=== PATIENT | female | born 1975 | race Caucasian/White ===

== ENCOUNTER 2019-08-01 19:45 | Observation (INO) ==
[2019-08-01 20:19] LABS: Hematocrit 31.5 % (37.0-47.0); Hemoglobin 10.9 gm/dL (12.5-16.0); Mean Cell Volume 112.9 fl (78-100); Mean Corpuscular Hemoglobin 39.1 pg (27-31); Mean Corpuscular Hgb Conc 34.6 g/dl (32-36); Mean Platelet Volume 11.8 fl (8-12.5); Neutrophil # 4.7 K/mm3 (1.3-6.0); Neutrophil % 72.5 % (42-75.0); Platelet Count 47 K/mm3 (150-450); Red Blood Count 2.79 M/mm3 (4.2-5.4); Red Cell Distribution Width 13.5 % (11.5-14.0); White Blood Count 6.5 K/mm3 (4.0-10.5)
[2019-08-01 20:26] LABS: Albumin * 2.6 gm/dl (3.4-5.0); BUN/Creatinine Ratio 15.2 (9.0-21.6); Bilirubin, Total 4.4 mg/dL (0.0-1.1); Ca. Corrected For Albumin 8.6 mg/dL (8.4-10.2); Calcium * 7.8 mg/dL (7.9-10.9); Carbon Dioxide 24.1 mmol/L (24-32.6); Potassium 3.1 mmol/L (3.4-4.6); Total Protein 7.3 gm/dL (6.2-8.2)
[2019-08-01] MEDS ORDERED: NORMAL SALINE 1,000 ML IV PRN ×2 (20:56→21:37)
[2019-08-01 20:59] LABS: Prothrombin Time (Patient) 14.6 Seconds (9.1-10.7)
[2019-08-01 21:09] LABS: INR 1.5 INR (0.92-1.08); Partial Thrombolplastin Time 29.7 Seconds (24-32)
[2019-08-01 21:19] LABS: Urine Bilirubin 3 mg/dl (NEGATIVE); Urine Blood 50 /ul (NEGATIVE); Urine Ketone 5 mg/dL (NEGATIVE); Urine Nitrite Negative (NEGATIVE); Urine Protein 30 mg/dL (NEGATIVE); Urine Urobilinogen >=8.0 EU/dl (NORMAL)
[2019-08-01 21:20] LABS: Urine Appearance Cloudy (CLEAR); Urine Color Dark Yellow
[2019-08-01 21:26] LABS: Urine Bacteria 4+; Urine WBC >50 /hpf (0-5)
--- NOTE | 2019-08-01 21:30 | ERNOTE ---
Abdominal HPI - Narrative Date of Service: 08/01/19 - General Chief Complaint: Abdominal Pain Time Seen by Provider: 08/01/19 20:46 Source: patient Exam Limitations: no limitations - Immun/Allergies/Home Medications Immunizatons: IMMUNIZATION HX Immunizations Up to Date Yes History of Influenza Vaccine No Hx Pneumococcal Vaccination No Allergies/Adverse Reactions: Allergies No Known Allergies Allergy (Verified 07/31/19 13:20) Home Medications: HOME MEDICATIONS levothyroxine 100 mcg capsule 100 mcg PO DAILY #30 cap 12/06/18 [Last Taken Unknown] albuterol sulfate HFA 90 mcg/actuation aerosol inhaler 2 inh IH Q6H PRN #8.5 g 01/28/19 [Last Taken Unknown] gabapentin 300 mg capsule 300 mg PO Q8H #90 cap 01/28/19 [Last Taken Unknown] furosemide 20 mg tablet 20 mg PO DAILY #30 tab 07/31/19 [Last Taken Unknown] hydroxyzine HCl 25 mg tablet 25 mg PO BID PRN #60 tab 07/31/19 [Last Taken Unknown] - Pain Score Pain Score #1 Pain Score: 5 Pain Radiation: no radiation - History of Present Illness Narrative: The patient is a 44 year old female who presents for increased lethargy which has been present for 3 days. There are associated symptoms of abdominal distention and difficulty with urination. The patient reports generalized pain, 5/10. There are no alleviating factors. There are no aggravating factors. Previous treatments have included: none. The past medical history includes: HTN. The social history is positive for heavy alcoh ol use. The patient has had no ill contacts. Patient reports increased lethargy and difficulty with urination. Patient states she has urge to void but has been unable. Patient also reports increased abdominal girth which has been present for the past 3 days. Patient report generalized body aches. Patient was recently seen in ER with head CT due to previous fall and alcohol intoxication. Patient during exam states she hasn't had a drink for a while, when questioned how long like days or hours friend at bedside responses only hours. Patient states she typically drinks "wild turkey" and other hard liquors. Patient denies repeat fall since last ER visit. Patient states she has just been continuing to sleep. Review of Systems - Review of Systems Constitutional: Present: fatigue. Absent: fever EYE: Present: no symptoms reported ENT: Present: no symptoms reported. Absent: ear pain, nasal drainage, sore throat Respiratory: Present: shortness of breath, cough Cardiology: Present: no symptoms reported. Absent: chest pain Gastrointestinal/Abdominal: Present: nausea, abdominal pain. Absent: vomiting, diarrhea Genitourinary: Present: decreased urinary output Musculoskeletal: Present: other - generalized body aches Skin: Present: change in color All Other Systems: All systems neg except as marked Medical History (Updated 07/29/19 @ 21:41 by Vidal Joseph DO) Hypertension Surgical History: Surgical History (Updated 11/03/18 @ 12:53 by Vicky Avila, MEHREEN) History of History of appendectomy History of cholecystectomy History of shoulder surgery Family History: Family History (Updated 08/01/19 @ 19:52 by Janel Good RN) Other No pertinent family history Social History: (Last Reviewed 08/01/19 @ 21:26 by GUERRERO Lowery) Social History: adopted: No Marital status: household members: friend(s) number of children: 2 current occupational status: unemployed Highest education level completed: some college, no degree Service: No Tobacco: Smoking Status: Current every day smoker Alcohol: alcohol intake: current Substance Use: substance use type: does not use Dietary Habits: caffeine: Yes Physical Exam - Physical Exam General Appearance: Present: wd/wn, alert, mild distress Head Exam: Present: normal inspection, no evidence of injury Eye Exam: PERRL: bilateral, EOMI: bilateral, Scleral icterus: bilateral Neck: Present: normal inspection Respiratory: Present: no respiratory distress, decreased breath sounds Cardiovascular/Chest: Present: regular rate, rhythm, no murmur Gastrointestinal/Abdominal: Present: tenderness - suprapubic, periumbilical, abnormal bowel sounds - hypoactive, distended, hepatomegaly Extremity Exam: Present: extremity edema - 2+ pitting bilateral Neurological Exam: Present: alert, oriented, normal mood/affect, no motor/se nsory deficits Skin Exam: Present: warm/dry, jaundice Progress - Date and Time Seen: Date and Time: 08/01/19 21:43 Review of lab testing from previous ER visit which showed interval worsening of liver function with findings of elevated AST, ammonia, and bili along with INR 1.5 and thrombocytopenia. 08/01/19 21:48 Message left for . 08/01/19 22:02 Case discussed with and will admit with IV hydration for lactic acidosis as well as coverage with Rocephin for UTI. - Results and Orders Patient's Lab Results:: I have reviewed the patient's lab results. - Vital Signs Patient's Vital Signs:: I have reviewed the patient's vital signs. Vital Signs: Vital Signs 08/01/19 19:48 08/01/19 21:16 Temperature 36.8 C Pulse Rate 71 65 Respiratory Rate 17 16 Blood Pressure 104/66 89/49 L O2 Sat by Pulse Oximetry 96 96 - EKG EKG #1 EKG: NSR, nonspecific ST T wave changes EKG read: Reviewed by me - Progress/Reassessment Chief Complaint: Abdominal Pain Departure Clinical Impression: Thrombocytopenia, Lactic acidosis, Increased ammonia level, Elevated liver function tests Urinary tract infection Qualifiers: Urinary tract infection type: site unspecified Hematuria presence: without hematuria Qualified Code(s): N39.0 - Urinary tract infection, site not specified - Departure Disposition: Still a patient Condition: Fair Referrals: Reggie Davis DO [Primary Care Provider] -
[2019-08-01] MEDS ORDERED: cefTRIAXone SODIUM 1,000 MG/100 ML BAG IV ONE (21:58)
[2019-08-01] MEDS: NICOTINE 21 MG PATC TD SCH (23:18)
[2019-08-02] MEDS: IBUPROFEN 400 MG TABLET PO PRN ×2 (01:52→08:02)
[2019-08-02 09:54] LABS: Hematocrit 27.5 % (37.0-47.0); Hemoglobin 9.7 gm/dL (12.5-16.0); Mean Cell Volume 111.8 fl (78-100); Mean Corpuscular Hemoglobin 39.4 pg (27-31); Mean Corpuscular Hgb Conc 35.3 g/dl (32-36); Mean Platelet Volume 11.1 fl (8-12.5); Neutrophil # 3.9 K/mm3 (1.3-6.0); Neutrophil % 75.2 % (42-75.0); Platelet Count 41 K/mm3 (150-450); Red Blood Count 2.46 M/mm3 (4.2-5.4); Red Cell Distribution Width 13.7 % (11.5-14.0); White Blood Count 5.1 K/mm3 (4.0-10.5)
[2019-08-02 10:00] LABS: Albumin * 2.4 gm/dl (3.4-5.0); Anion Gap 13.3 mmol/L (6.8-13.8); BUN/Creatinine Ratio 10.5 (9.0-21.6); Bilirubin, Total 4.7 mg/dL (0.0-1.1); Ca. Corrected For Albumin 8.5 mg/dL (8.4-10.2); Calcium * 7.5 mg/dL (7.9-10.9); Carbon Dioxide 24.8 mmol/L (24-32.6); Potassium 3.1 mmol/L (3.4-4.6); Total Protein 6.7 gm/dL (6.2-8.2)
[2019-08-02] MEDS ORDERED: FLU VACC QS2019-20(6MOS UP)/PF 60 MCG/0.5 ML SYRINGE IM ONE (10:00)
[2019-08-02] MEDS ORDERED: POTASSIUM BICARBONATE/CIT AC 25 MEQ TABLET.EFF PO ONE (11:08)
[2019-08-02] MEDS ORDERED: AMITRIPTYLINE HCL 25 MG TABLET PO PRN (11:09)
[2019-08-02] MEDS ORDERED: ALBUTEROL SULFATE 2.5 MG/0.5 ML VIAL.NEB IH PRN (11:30)
[2019-08-02] MEDS: GABAPENTIN 300 MG CAPSULE PO SCH ×2 (12:36→20:44)
[2019-08-02] MEDS: DICLOFENAC SODIUM 50 MG TABLET.DR PO SCH ×2 (12:36→17:02)
--- NOTE | 2019-08-02 13:46 | HPDIS ---
Chief Complaint - Chief Complaint Date of Service: 08/02/19 Time of Service: 09:45 Chief Complaint: Abdominal pain and difficulty walking. History of Present Illness: 44-year-old female with a past medical history of alcohol abuse, hypertension, anxiety, hypothyroidism, GERD, tobacco abuse presents with complaints of difficulty walking and abdominal pain. She stated her symptoms began 3 days prior to presentation. In she also complained of difficulty urinating. She had been seen in the emergency department for on July 26, 2019 status post fall with alcohol intoxication and was found to have a scalp hematoma on CT scan. She states her last drink was yesterday. In the emergency department she was found to have anemia, slightly worsening thrombocytopenia, mildly elevated LFTs, hypokalemia and lactic acidosis. She was treated with IV fluids with appropriate response in the lactic acid levels. She was also noted to have a positive UA and was started on ceftriaxone. Medical History (Updated 08/01/19 @ 23:24 by Lisa Subramanian RN) Anxiety Hypertension Surgical History: Surgical History (Updated 11/03/18 @ 12:53 by Vicky Avila RN) History of History of appendectomy History of cholecystectomy History of shoulder surgery Family History: Family History (Updated 08/01/19 @ 19:52 by Janel Good RN) Other No pertinent family history Social History: (Last Reviewed 08/01/19 @ 21:26 by GUERRERO Lowery) Social History: adopted: No Marital status: household members: friend(s) number of children: 2 current occupational status: unemployed Highest education level completed: some college, no degree Service: No Tobacco: Smoking Status: Current every day smoker Alcohol: alcohol intake: current Substance Use: substance use type: does not use Dietary Habits: caffeine: Yes Review Of Systems (GEN) - Review of Systems Generalized/Overall Review: Absent: Fever Respiratory: Absent: Shortness of Breath Cardiac: Absent: Chest Pain Abdominal: Present: Abdominal Pain Genitourinary: Absent: Frequency, Dysuria Musculoskeletal: Present: Joint Pain - Right shoulder Misc: All systems neg except as marked Immunizations: IMMUNIZATION HX Immunizations Up to Date Yes History of Influenza Vaccine No Hx Pneumococcal Vaccination No Allergies/Adverse Reactions: Allergies Allergy/AdvReac Type Severity Reaction Status Date / Time No Known Allergies Allergy Verified 08/01/19 23:26 Home Medications: HOME MEDICATIONS levothyroxine 100 mcg capsule 100 mcg PO DAILY #30 cap 12/06/18 [Last Taken Unknown] albuterol sulfate HFA 90 mcg/actuation aerosol inhaler 2 inh IH Q6H PRN #8.5 g 01/28/19 [Last Taken Unknown] gabapentin 300 mg capsule 300 mg PO Q8H #90 cap 01/28/19 [Last Taken Unknown] furosemide 20 mg tablet 20 mg PO DAILY #30 tab 07/31/19 [Last Taken Unknown] hydroxyzine HCl 25 mg tablet 25 mg PO BID PRN #60 tab 07/31/19 [Last Taken Unknown] Amitriptyline HCl [Elavil] 50 mg PO HS PRN 08/01/19 [Last Taken Unknown] Beclomethasone Dipropionate [Qvar Redihaler] 10.6 gm INHALATION PRN PRN 08/01/19 [Last Taken Unknown] Diclofenac Sodium [Voltaren] 50 mg PO TID 08/01/19 [Last Taken Unknown] LORazepam [Ativan] 1 mg PO TID PRN 08/01/19 [Last Taken Unknown] Omeprazole 40 mg PO DAILY 08/01/19 [Last Taken Unknown] chlordiazePOXIDE HCL [Librium] 25 - 50 mg PO QID 08/01/19 [Last Taken Unknown] Cefdinir 300 mg PO BID #12 cap 08/02/19 [Last Taken Unknown] Exam - Exam Vital Signs: Vital Signs - Last Taken Temp 37.0 C 08/02/19 10:00 Pulse 81 08/02/19 10:00 Resp 16 08/02/19 10:00 BP 133/54 08/02/19 10:00 Pulse Ox 93 08/02/19 10:00 Constitutional: Present: Alert, Cooperative, Well developed, Well nourished, Middle aged ENT Exam: Present: hearing grossly normal Eye Exam: bilateral eye: normal inspection, PERRL, EOMI, scleral icterus Neck: Present: non-tender, supple, trachea midline. Absent: lymphadenopathy (R), lymphadenopathy (L) Back Exam: Present: normal inspection, no CVA tenderness Respiratory: Present: no respiratory distress, decreased breath sounds. Absent: crackles, rhonchi, wheezing Cardiovascular/Chest: Present: normal peripheral pulses, regular rate, rhythm, no murmur Peripheral Pulses: dorsalis-pedis (R): 1+, dorsalis-pedis (L): 1+ Abdomen: Present: Normal bowel sounds, soft, nontender Extremity: Present: normal inspection, no pedal edema Skin Exam: Present: normal color, warm/dry Neurologic: Present: alert, normal mood/affect Appearance: Present: appropriate appearance Eye contact: Present: cooperative, good eye contact Thoughts: Present: normal mood /affect Diagnostic Studies: Abnormal Lab Results 08/01/19 08/01/19 08/01/19 Range/Units 20:11 20:11 20:47 RBC 2.79 L (4.2-5.4) M/mm3 Hgb 10.9 L (12.5-16.0) gm/dL Hct 31.5 L (37.0-47.0) % MCV 112.9 H (78-100) fl MCH 39.1 H (27-31) pg Plt Count 47 L (150-450) K/mm3 Immature Gran % (Auto) 0.50 H (0.001-0.429) % Neutrophils % (42-75.0) % Lymphocytes % (20-51) % Lymphocytes # 1.35 L (1.5-3.5) k/mm3 PT 14.6 H (9.1-10.7) Seconds INR (Anticoag Therapy) 1.50 H (0.92-1.08) INR Potassium 3.1 L (3.4-4.6) mmol/L Chloride 95 L (97-106) mmol/L Anion Gap 17.0 H (6.8-13.8) mmol/L Random Glucose 136 H D (70-110) mg/dL Lactic Acid, Venous (0.4-2.0) mmol/L Calcium 7.8 L (7.9-10.9) mg/dL Total Bilirubin 4.4 H (0.0-1.1) mg/dL AST 261 H (0-48) U/L ALT 80 H (19-67) U/L Ammonia (11-35) mcmol/L Albumin 2.6 L (3.4-5.0) gm/dl Urine Protein (NEGATIVE) mg/dL Urine Blood (NEGATIVE) /ul Urine Bilirubin (NEGATIVE) mg/dl Urine Ictotest (NEGATIVE) Prot Sulfosalicylic Acd (0) mg/dL Urine Urobilinogen (NORMAL) EU/dl Ur Leukocyte Esterase (NEGATIVE) /ul Urine RBC (0-5) /hpf Urine WBC (0-5) /hpf Ur Epithelial Cells (0-5) /hpf Urine Bacteria (NONE) Ethyl Alcohol (0.0-10.0) mg/dL 08/01/19 08/01/19 08/01/19 Range/Units 20:47 20:56 20:57 RBC (4.2-5.4) M/mm3 Hgb (12.5-16.0) gm/dL Hct (37.0-47.0) % MCV (78-100) fl MCH (27-31) pg Plt Count (150-450) K/mm3 Immature Gran % (Auto) (0.001-0.429) % Neutrophils % (42-75.0) % Lymphocytes % (20-51) % Lymphocytes # (1.5-3.5) k/mm3 PT (9.1-10.7) Seconds INR (Anticoag Therapy) (0.92-1.08) INR Potassium (3.4-4.6) mmol/L Chloride (97-106) mmol/L Anion Gap (6.8-13.8) mmol/L Random Glucose (70-110) mg/dL Lactic Acid, Venous 4.7 H* (0.4-2.0) mmol/L Calcium (7.9-10.9) mg/dL Total Bilirubin (0.0-1.1) mg/dL AST (0-48) U/L ALT (19-67) U/L Ammonia 62.0 H (11-35) mcmol/L Albumin (3.4-5.0) gm/dl Urine Protein (NEGATIVE) mg/dL Urine Blood (NEGATIVE) /ul Urine Bilirubin (NEGATIVE) mg/dl Urine Ictotest (NEGATIVE) Prot Sulfosalicylic Acd (0) mg/dL Urine Urobilinogen (NORMAL) EU/dl Ur Leukocyte Esterase (NEGATIVE) /ul Urine RBC (0-5) /hpf Urine WBC (0-5) /hpf Ur Epithelial Cells (0-5) /hpf Urine Bacteria (NONE) Ethyl Alcohol 322.0 H (0.0-10.0) mg/dL 08/01/19 08/01/19 08/02/19 Range/Units 21:16 23:56 09:40 RBC 2.46 L (4.2-5.4) M/mm3 Hgb 9.7 L (12.5-16.0) gm/dL Hct 27.5 L (37.0-47.0) % MCV 111.8 H (78-100) fl MCH 39.4 H (27-31) pg Plt Count 41 L (150-450) K/mm3 Immature Gran % (Auto) (0.001-0.429) % Neutrophils % 75.2 H (42-75.0) % Lymphocytes % 18.3 L (20-51) % Lymphocytes # 0.94 L (1.5-3.5) k/mm3 PT (9.1-10.7) Seconds INR (Anticoag Therapy) (0.92-1.08) INR Potassium (3.4-4.6) mmol/L Chloride (97-106) mmol/L Anion Gap (6.8-13.8) mmol/L Random Glucose (70-110) mg/dL Lactic Acid, Venous 3.3 H* (0.4-2.0) mmol/L Calcium (7.9-10.9) mg/dL Total Bilirubin (0.0-1.1) mg/dL AST (0-48) U/L ALT (19-67) U/L Ammonia (11-35) mcmol/L Albumin (3.4-5.0) gm/dl Urine Protein 30 H (NEGATIVE) mg/dL Urine Blood 50 H (NEGATIVE) /ul Urine Bilirubin 3 H (NEGATIVE) mg/dl Urine Ictotest Positive H (NEGATIVE) Prot Sulfosalicylic Acd 3+ H (0) mg/dL Urine Urobilinogen >=8.0 H (NORMAL) EU/dl Ur Leukocyte Esterase 500 H (NEGATIVE) /ul Urine RBC 5-10 H (0-5) /hpf Urine WBC >50 H (0-5) /hpf Ur Epithelial Cells >25 H (0-5) /hpf Urine Bacteria 4+ H (NONE) Ethyl Alcohol (0.0-10.0) mg/dL 08/02/19 08/02/19 Range/Units 09:40 09:40 RBC (4.2-5.4) M/mm3 Hgb (12.5-16.0) gm/dL Hct (37.0-47.0) % MCV (78-100) fl MCH (27-31) pg Plt Count (150-450) K/mm3 Immature Gran % (Auto) (0.001-0.429) % Neutrophils % (42-75.0) % Lymphocytes % (20-51) % Lymphocytes # (1.5-3.5) k/mm3 PT (9.1-10.7) Seconds INR (Anticoag Therapy) (0.92-1.08) INR Potassium 3.1 L (3.4-4.6) mmol/L Chloride (97-106) mmol/L Anion Gap (6.8-13.8) mmol/L Random Glucose 132 H (70-110) mg/dL Lactic Acid, Venous 2.8 H* (0.4-2.0) mmol/L Calcium 7.5 L (7.9-10.9) mg/dL Total Bilirubin 4.7 H (0.0-1.1) mg/dL AST 232 H (0-48) U/L ALT 75 H (19-67) U/L Ammonia (11-35) mcmol/L Albumin 2.4 L (3.4-5.0) gm/dl Urine Protein (NEGATIVE) mg/dL Urine Blood (NEGATIVE) /ul Urine Bilirubin (NEGATIVE) mg/dl Urine Ictotest (NEGATIVE) Prot Sulfosalicylic Acd (0) mg/dL Urine Urobilinogen (NORMAL) EU/dl Ur Leukocyte Esterase (NEGATIVE) /ul Urine RBC (0-5) /hpf Urine WBC (0-5) /hpf Ur Epithelial Cells (0-5) /hpf Urine Bacteria (NONE) Ethyl Alcohol (0.0-10.0) mg/dL Microbiology 08/01/19 21:18 Urine Culture - Preliminary Urine,Clean Catch Ruling Out Pathogen Laboratory Results WBC 5.1 K/mm3 (4.0-10.5) D 08/02/19 09:40 RBC 2.46 M/mm3 (4.2-5.4) L 08/02/19 09:40 Hgb 9.7 gm/dL (12.5-16.0) L 08/02/19 09:40 Hct 27.5 % (37.0-47.0) L 08/02/19 09:40 MCV 111.8 fl (78-100) H 08/02/19 09:40 MCH 39.4 pg (27-31) H 08/02/19 09:40 MCHC 35.3 g/dl (32-36) 08/02/19 09:40 RDW 13.7 % (11.5-14.0) 08/02/19 09:40 Plt Count 41 K/mm3 (150-450) L 08/02/19 09:40 MPV 11.1 fl (8-12.5) 08/02/19 09:40 Immature Gran % (Auto) 0.40 % (0.001-0.429) 08/02/19 09:40 Immature Gran # (Auto) 0.02 K/mm3 (0.000-0.0310) 08/02/19 09:40 75.2 % (42-75.0) H 08/02/19 09:40 18.3 % (20-51) L 08/02/19 09:40 5.3 % (0.0-9) 08/02/19 09:40 0.6 % (0.0-3.0) 08/02/19 09:40 0.2 % (0.0-1.0) 08/02/19 09:40 Nucleated RBC % 0.0 k/mm3 (0-1) 08/02/19 09:40 3.9 K/mm3 (1.3-6.0) 08/02/19 09:40 0.94 k/mm3 (1.5-3.5) L 08/02/19 09:40 0.3 k/mm3 (0.0-1.0) 08/02/19 09:40 0.0 k/mm3 (0.0-0.7) 08/02/19 09:40 Absolute Basophils 0.0 k/mm3 (0.0-0.1) 08/02/19 09:40 PT 14.6 Seconds (9.1-10.7) H 08/01/19 20:47 INR (Anticoag Therapy) 1.50 INR (0.92-1.08) H 08/01/19 20:47 PTT (Jeb) 29.7 Seconds (24-32) D 08/01/19 20:47 Sodium 137 mmol/L (132-142) 08/02/19 09:40 138 mmol/L (130-142) 08/02/19 09:40 Potassium 3.1 mmol/L (3.4-4.6) L 08/02/19 09:40 Chloride 102 mmol/L (97-106) 08/02/19 09:40 Carbon Dioxide 24.8 mmol/L (24-32.6) 08/02/19 09:40 13.3 mmol/L (6.8-13.8) 08/02/19 09:40 BUN 8 mg/dL (3-23) 08/02/19 09:40 0.76 mg/dL (0.4-1.4) 08/02/19 09:40 Est GFR (Non-Af Amer) 87 mL/min (60-130) D 08/02/19 09:40 10.5 (9.0-21.6) 08/02/19 09:40 132 mg/dL (70-110) H 08/02/19 09:40 2.8 mmol/L (0.4-2.0) H* 08/02/19 09:40 Calcium 7.5 mg/dL (7.9-10.9) L 08/02/19 09:40 Calcium Adj for Albumin 8.5 mg/dL (8.4-10.2) 08/02/19 09:40 4.7 mg/dL (0.0-1.1) H 08/02/19 09:40 AST 232 U/L (0-48) H 08/02/19 09:40 ALT 75 U/L (19-67) H 08/02/19 09:40 86 U/L (50-170) 08/02/19 09:40 62.0 mcmol/L (11-35) H 08/01/19 20:47 6.7 gm/dL (6.2-8.2) 08/02/19 09:40 2.4 gm/dl (3.4-5.0) L 08/02/19 09:40 Amylase 43 U/L (25-115) 08/01/19 20:11 381 U/L (73-393) 08/01/19 20:11 Dark yellow 08/01/19 21:16 Cloudy (CLEAR) 08/01/19 21:16 6.0 pH (5.0-7.0) 08/01/19 21:16 Ur Specific Slade 1.020 SP.GR. (1.005-1.010) 08/01/19 21:16 30 mg/dL (NEGATIVE) H 08/01/19 21:16 Negative mg/dL (NEGATIVE) 08/01/19 21:16 5 mg/dL (NEGATIVE) 08/01/19 21:16 50 /ul (NEGATIVE) H 08/01/19 21:16 Negative (NEGATIVE) 08/01/19 21:16 3 mg/dl (NEGATIVE) H 08/01/19 21:16 Positive (NEGATIVE) H 08/01/19 21:16 Prot Sulfosalicylic Acd 3+ mg/dL (0) H 08/01/19 21:16 >=8.0 EU/dl (NORMAL) H 08/01/19 21:16 Ur Leukocyte Esterase 500 /ul (NEGATIVE) H 08/01/19 21:16 5-10 /hpf (0-5) H 08/01/19 21:16 >50 /hpf (0-5) H 08/01/19 21:16 Ur Epithelial Cells >25 /hpf (0-5) H 08/01/19 21:16 4+ (NONE) H 08/01/19 21:16 Culture to follow 08/01/19 21:16 Ethyl Alcohol 322.0 mg/dL (0.0-10.0) H 08/01/19 20:57 Assessment/Plan - Narrative Narrative: 44-year-old female with a past medical history of alcohol abuse, hypertension, anxiety, hypothyroidism, GERD, tobacco abuse presents with complaints of difficulty walking and abdominal pain. She stated her symptoms began 3 days prior to presentation. In she also complained of difficulty urinating. She had been seen in the emergency department for on July 26, 2019 status post fall with alcohol intoxication and was found to have a scalp hematoma on CT scan. Sh e states her last drink was yesterday. In the emergency department she was found to have anemia, slightly worsening thrombocytopenia, mildly elevated LFTs, hypokalemia and lactic acidosis. She was treated with IV fluids with appropriate response in the lactic acid levels. She was also noted to have a positive UA and was started on ceftriaxone. Her potassium was orally with potassium bicarb 50 mEq. Today she was seen by physical therapy and ambulated well with a walker. Her vitals are stable. She would be discharged home. She will continue antibiotics with Ceftin ear 300 mg twice a day for the next 6 days. - Assessment/Plan (1) Thrombocytopenia Problem: Acute (2) Lactic acidosis Problem: Acute (3) Increased ammonia level Problem: Acute (4) Urinary tract infection Problem: Acute Qualifiers: Urinary tract infection type: site unspecified Hematuria presence: without hematuria Qualified Code(s): N39.0 - Urinary tract infection, site not specified (5) Elevated liver function tests Problem: Acute (1) Thrombocytopenia Problem: Acute (2) Lactic acidosis Problem: Acute (3) Increased ammonia level Problem: Acute (4) Urinary tract infection Problem: Acute Qualifiers: Urinary tract infection type: site unspecified Hematuria presence: without hematuria Qualified Code(s): N39.0 - Urinary tract infection, site not specified (5) Elevated liver function tests Problem: Acute Description of Stay: 44-year-old female with a past medical history of alcohol abuse, hypertension, anxiety, hypothyroidism, GERD, tobacco abuse presents with complaints of difficulty walking and abdominal pain. She stated her symptoms began 3 days prior to presentation. In she also complained of difficulty urinating. She had been seen in the emergency department for on July 26, 2019 status post fall with alcohol intoxication and was found to have a scalp hematoma on CT scan. She states her last drink was yesterday. In the emergency department she was found to have anemia, slightly worsening thrombocytopenia, mildly elevated LFTs, hypokalemia and lactic acidosis. She was treated with IV fluids with appropriate response in the lactic acid levels. She was also noted to have a positive UA and was started on ceftriaxone. Her potassium was orally with potassium bicarb 50 mEq.Today she was seen by physical therapy and ambulated well with a walker. Her vitals are stable. She would be discharged home. She will continue antibiotics with Ceftin ear 300 mg twice a day for the next 6 days. Procedures Performed: none Results and Findings: Pending Mircobiology Results 08/01/19 21:18 Urine,Clean Catch Urine Culture - Preliminary Ruling Out Pathogen Lab Pending Results 08/01/19 20:11: WBC 6.5, RBC 2.79 L, Hgb 10.9 L, Hct 31.5 L, MCV 112.9 H, MCH 39.1 H, MCHC 34.6, RDW 13.5, Plt Count 47 L, MPV 11.8, Immature Gran % (Auto) 0.50 H, Immature Gran # (Auto) 0.03, Neutrophils % 72.5, Lymphocytes % 20.9, Monocytes % 5.3, Eosinophils % 0.5, Basophils % 0.3, Nucleated RBC % 0.0, Neutrophils # 4.7, Lymphocytes # 1.35 L, Monocytes # 0.3, Eosinophils # 0.0, Absolute Basophils 0.0 08/01/19 20:11: Sodium 133, Plasma Sodium 134, Potassium 3.1 L, Chloride 95 L, Carbon Dioxide 24.1, Anion Gap 17.0 H, BUN 14 D, Creatinine 0.92, Est GFR (Non- Af Amer) 70 D, BUN/Creatinine Ratio 15.2, Random Glucose 136 H D, Calcium 7.8 L, Calcium Adj for Albumin 8.6, Total Bilirubin 4.4 H, AST 261 H, ALT 80 H, Alkaline Phosphatase 99, Total Protein 7.3, Albumin 2.6 L, Amylase 43, Lipase 381 08/01/19 20:47: PT 14.6 H, INR (Anticoag Therapy) 1.50 H, PTT (Jeb) 29.7 D 08/01/19 20:47: Ammonia 62.0 H 08/01/19 20:56: Lactic Acid, Venous 4.7 H* 08/01/19 20:57: Ethyl Alcohol 322.0 H 08/01/19 21:16: Urine Color Dark yellow, Urine Appearance Cloudy, Urine pH 6.0, Ur Specific Slade 1.020, Urine Protein 30 H, Urine Glucose (UA) Negative, Urine Ketones 5, Urine Blood 50 H, Urine Nitrate Negative, Urine Bilirubin 3 H, Urine Ictotest Positive H, Prot Sulfosalicylic Acd 3+ H, Urine Urobilinogen >=8.0 H, Ur Leukocyte Esterase 500 H, Urine RBC 5-10 H, Urine WBC >50 H, Ur Ep ithelial Cells >25 H, Urine Bacteria 4+ H, Urine Culture Comments Culture to follow 08/01/19 23:56: Lactic Acid, Venous 3.3 H* 08/02/19 09:40: WBC 5.1 D, RBC 2.46 L, Hgb 9.7 L, Hct 27.5 L, MCV 111.8 H, MCH 39.4 H, MCHC 35.3, RDW 13.7, Plt Count 41 L, MPV 11.1, Immature Gran % (Auto) 0.40, Immature Gran # (Auto) 0.02, Neutrophils % 75.2 H, Lymphocytes % 18.3 L, Monocytes % 5.3, Eosinophils % 0.6, Basophils % 0.2, Nucleated RBC % 0.0, Neutrophils # 3.9, Lymphocytes # 0.94 L, Monocytes # 0.3, Eosinophils # 0.0, Absolute Basophils 0.0 08/02/19 09:40: Sodium 137, Plasma Sodium 138, Potassium 3.1 L, Chloride 102, Carbon Dioxide 24.8, Anion Gap 13.3, BUN 8, Creatinine 0.76, Est GFR (Non-Af Amer) 87 D, BUN/Creatinine Ratio 10.5, Random Glucose 132 H, Calcium 7.5 L, Calcium Adj for Albumin 8.5, Total Bilirubin 4.7 H, AST 232 H, ALT 75 H, Alkaline Phosphatase 86, Total Protein 6.7, Albumin 2.4 L 08/02/19 09:40: Lactic Acid, Venous 2.8 H* Discharge Location: Home Disposition: Home self-care Condition: Fair Discharge Activity: Activity as tolerated Discharge Diet: General/regular food Referrals: Reggie Davis DO [Primary Care Provider] - Complete Home Medications List: Complete Home Medication List: levothyroxine 100 mcg capsule 100 mcg PO DAILY #30 cap 12/06/18 albuterol sulfate HFA 90 mcg/actuation aerosol inhaler 2 inh IH Q6H PRN #8.5 g 01/28/19 gabapentin 300 mg capsule 300 mg PO Q8H #90 cap 01/28/19 furosemide 20 mg tablet 20 mg PO DAILY #30 tab 07/31/19 hydroxyzine HCl 25 mg tablet 25 mg PO BID PRN #60 tab 07/31/19 Amitriptyline HCl [Elavil] 50 mg PO HS PRN 08/01/19 Beclomethasone Dipropionate [Qvar Redihaler] 10.6 gm INHALATION PRN PRN 08/01/19 Diclofenac Sodium [Voltaren] 50 mg PO TID 08/01/19 LORazepam [Ativan] 1 mg PO TID PRN 08/01/19 Omeprazole 40 mg PO DAILY 08/01/19 chlordiazePOXIDE HCL [Librium] 25 - 50 mg PO QID 08/01/19 Cefdinir 300 mg PO BID #12 cap 08/02/19
[2019-08-02] MEDS ORDERED: hydrOXYzine HCL 25 MG TABLET PO PRN (16:17)
[2019-08-02] MEDS ORDERED: BECLOMETHASONE DIPROPIONATE 10.6 GM inhalation PRN (16:21)
[2019-08-02] MEDS: chlordiazePOXIDE HCL 25 MG CAPSULE PO SCH ×2 (17:02→20:44)
[2019-08-02] MEDS: NICOTINE 21 MG PATC TD SCH (21:40)
[2019-08-03] MEDS: GABAPENTIN 300 MG CAPSULE PO SCH ×3 (02:51→20:01)
[2019-08-03 06:01] LABS: Albumin * 2.3 gm/dl (3.4-5.0); Anion Gap 10.4 mmol/L (6.8-13.8); BUN/Creatinine Ratio 10.3 (9.0-21.6); Bilirubin, Total 7.5 mg/dL (0.0-1.1); Ca. Corrected For Albumin 9.2 mg/dL (8.4-10.2); Calcium * 8.2 mg/dL (7.9-10.9); Potassium 3.4 mmol/L (3.4-4.6); Total Protein 6.8 gm/dL (6.2-8.2)
[2019-08-03] MEDS: LEVOTHYROXINE SODIUM 100 MCG TABLET PO SCH (07:33)
[2019-08-03] MEDS: chlordiazePOXIDE HCL 25 MG CAPSULE PO SCH ×4 (09:57→20:01)
[2019-08-03] MEDS: DICLOFENAC SODIUM 50 MG TABLET.DR PO SCH ×3 (09:57→17:37)
[2019-08-03] MEDS: FUROSEMIDE 20 MG TABLET PO SCH (09:57)
[2019-08-03] MEDS: PANTOPRAZOLE SODIUM 40 MG TABLET.EC PO SCH (09:58)
--- NOTE | 2019-08-03 13:09 | PN ---
Subjective - Date and Time Seen Date: 08/03/19 Time: 10:38 Subjective Narrative: She continues to complain of pain in the back of her head where she sustained a trauma status post fall. She also has lower abdominal pain. Objective - Review of Systems Generalized/Overall Review: Denies: Fever Respiratory: Denies: Shortness of Breath Cardiac: Denies: Chest Pain Abdominal: Denies: Abdominal Pain Neurological: Reports: Headache Misc: All systems neg except as marked - Vitals Vitals: Last Vital Signs Temp 37.2 C 08/03/19 11:30 Pulse 98 08/03/19 11:30 Resp 20 08/03/19 11:30 BP 136/66 08/03/19 11:30 Pulse Ox 96 08/03/19 11:30 - Abnormal Lab Findings Abnormal Lab Findings: Abnormal Lab Results 08/03/19 Range/Units 05:40 Random Glucose 122 H (70-110) mg/dL Total Bilirubin 7.5 H (0.0-1.1) mg/dL AST 196 H (0-48) U/L ALT 70 H (19-67) U/L Albumin 2.3 L (3.4-5.0) gm/dl - Exam Constitutional: Present: Alert, Cooperative, Well developed, Well nourished, No distress, Middle aged ENT Exam: Present: hearing grossly normal Neck: Present: non-tender. Absent: lymphadenopathy (R), lymphadenopathy (L) Respiratory: Present: other - Coarse breath sounds on expiration throughout all lung lynne Cardiovascular/Chest: Present: normal peripheral pulses, regular rate, rhythm, no edema, no murmur Abdomen: Present: Normal bowel sounds, soft, nontender Extremity: Present: non-tender, no pedal edema Skin Exam: Present: normal color, warm/dry, other - Small tender subcutaneous hematoma noted on the posterior aspect of her scalp Neurologic: Present: alert, normal mood/affect Appearance: Present: appropriate appearance Eye contact: Present: cooperative Thoughts: Present: normal mood /affect Assessment/Plan Plan Narrative: 44-year-old female with a past medical history of alcohol abuse, hypertension, anxiety, hypothyroidism, GERD, tobacco abuse presents with complaints of difficulty walking and abdominal pain. He was found to have a urinary tract infection and was started on ceftriaxone. She was evaluated by physical therapy it was determined that she will need a walker on discharge home. She is awaiting home health care to be able to deliver a walker to her house in order for her to have a safe discharge from the hospital. Plan #1 continue ceftriaxone day 3 #2 resume her home medications for comorbidities. #3 Continue with her home regimen of Librium 25 mg 4 times a day in order to help prevent alcohol detoxification symptoms. CIWA this morning was 7. #4 awaiting home health to arrange a walker to be delivered to her house. - Problems/Diagnosis (1) Urinary tract infection Problem: Acute Qualifiers: Urinary tract infection type: site unspecified Hematuria presence: without hematuria Qualified Code(s): N39.0 - Urinary tract infection, site not specified (2) Thrombocytopenia Problem: Chronic (3) Lactic acidosis Problem: Acute (4) Increased ammonia level Problem: Acute (5) Elevated liver function tests Problem: Acute (6) Hypokalemia Problem: Resolved
[2019-08-03] MEDS: NICOTINE 21 MG PATC TD SCH (22:37)
[2019-08-04] MEDS: GABAPENTIN 300 MG CAPSULE PO SCH ×2 (02:32→10:14)
[2019-08-04 05:48] LABS: Hematocrit 28.8 % (37.0-47.0); Hemoglobin 9.9 gm/dL (12.5-16.0); Mean Cell Volume 117.1 fl (78-100); Mean Corpuscular Hemoglobin 40.2 pg (27-31); Mean Corpuscular Hgb Conc 34.4 g/dl (32-36); Mean Platelet Volume 12.1 fl (8-12.5); Neutrophil # 3.3 K/mm3 (1.3-6.0); Platelet Count 41 K/mm3 (150-450); Red Blood Count 2.46 M/mm3 (4.2-5.4); Red Cell Distribution Width 14.6 % (11.5-14.0); White Blood Count 4.3 K/mm3 (4.0-10.5)
[2019-08-04 05:56] LABS: Albumin * 2.2 gm/dl (3.4-5.0); Anion Gap 8.1 mmol/L (6.8-13.8); BUN/Creatinine Ratio 9.2 (9.0-21.6); Bilirubin, Total 5.6 mg/dL (0.0-1.1); Ca. Corrected For Albumin 9.6 mg/dL (8.4-10.2); Calcium * 8.5 mg/dL (7.9-10.9); Carbon Dioxide 30.2 mmol/L (24-32.6); Potassium 3.3 mmol/L (3.4-4.6); Total Protein 6.3 gm/dL (6.2-8.2)
[2019-08-04] MEDS: LEVOTHYROXINE SODIUM 100 MCG TABLET PO SCH (07:56)
[2019-08-04] MEDS ORDERED: POTASSIUM BICARBONATE/CIT AC 25 MEQ TABLET.EFF PO ONE (09:35)
--- NOTE | 2019-08-04 09:44 | DS ---
(1) Urinary tract infection Problem: Acute Qualifiers: Urinary tract infection type: site unspecified Hematuria presence: without hematuria Qualified Code(s): N39.0 - Urinary tract infection, site not specified (2) Thrombocytopenia Problem: Chronic (3) Lactic acidosis Problem: Acute (4) Increased ammonia level Problem: Acute (5) Elevated liver function tests Problem: Acute (6) Hypokalemia Problem: Acute Description of Stay: 44-year-old female with a past medical history of alcohol abuse, hypertension, anxiety, hypothyroidism, GERD, tobacco abuse presents with complaints of difficulty walking and abdominal pain. She stated her symptoms began 3 days prior to presentation. In she also complained of difficulty urinating. She had been seen in the emergency department for on July 26, 2019 status post fall with alcohol intoxication and was found to have a scalp hematoma on CT scan. She states her last drink was yesterday. In the emergency department she was found to have anemia, slightly worsening thrombocytopenia, mildly elevated LFTs, hypokalemia and lactic acidosis. She was treated with IV fluids with appropriate response in the lactic acid levels. She was also noted to have a positive UA and was started on ceftriaxone. Her potassium was orally with potassium bicarb 50 mEq. She was seen by physical therapy and ambulated well with a walker. Her vitals are stable. She remained hospitalized throughout the weekend secondary to her need for a walker that could not be delivered to her home until today. She will be discharged home today. She will continue antibiotics with Cefdinir 300 mg twice a day for 2 more days. She has been evaluated by physical therapy who determined that she has an unstable gait and a cane does not provide adequate stability to prevent falls. A 2 wheeled walker will increase safety when ambulating and decrease risk of falling with mobility related ADLs. Procedures Performed: none Results and Findings: Pending Mircobiology Results 08/01/19 00:00 Blood Blood Culture - Preliminary NO GROWTH AFTER 48 HOURS 08/01/19 09:05 Blood Blood Culture - Preliminary NO GROWTH AFTER 48 HOURS Lab Pending Results 08/01/19 20:11: WBC 6.5, RBC 2.79 L, Hgb 10.9 L, Hct 31.5 L, MCV 112.9 H, MCH 39.1 H, MCHC 34.6, RDW 13.5, Plt Count 47 L, MPV 11.8, Immature Gran % (Auto) 0.50 H, Immature Gran # (Auto) 0.03, Neutrophils % 72.5, Lymphocytes % 20.9, Monocytes % 5.3, Eosinophils % 0.5, Basophils % 0.3, Nucleated RBC % 0.0, Neutrophils # 4.7, Lymphocytes # 1.35 L, Monocytes # 0.3, Eosinophils # 0.0, Absolute Basophils 0.0 08/01/19 20:11: Sodium 133, Plasma Sodium 134, Potassium 3.1 L, Chloride 95 L, Carbon Dioxide 24.1, Anion Gap 17.0 H, BUN 14 D, Creatinine 0.92, Est GFR (Non- Af Amer) 70 D, BUN/Creatinine Ratio 15.2, Random Glucose 136 H D, Calcium 7.8 L, Calcium Adj for Albumin 8.6, Total Bilirubin 4.4 H, AST 261 H, ALT 80 H, Alkaline Phosphatase 99, Total Protein 7.3, Albumin 2.6 L, Amylase 43, Lipase 381 08/01/19 20:47: PT 14.6 H, INR (Anticoag Therapy) 1.50 H, PTT (Jeb) 29.7 D 08/01/19 20:47: Ammonia 62.0 H 08/01/19 20:56: Lactic Acid, Venous 4.7 H* 08/01/19 20:57: Ethyl Alcohol 322.0 H 08/01/19 21:16: Urine Color Dark yellow, Urine Appearance Cloudy, Urine pH 6.0, Ur Specific [place] 1.020, Urine Protein 30 H, Urine Glucose (UA) Negative, Urine Ketones 5, Urine Blood 50 H, Urine Nitrate Negative, Urine Bilirubin 3 H, Urine Ictotest Positive H, Prot Sulfosalicylic Acd 3+ H, Urine Urobilinogen >=8.0 H, Ur Leukocyte Esterase 500 H, Urine RBC 5-10 H, Urine WBC >50 H, Ur Epithelial Cells >25 H, Urine Bacteria 4+ H, Urine Culture Comments Culture to follow 08/01/19 23:56: Lactic Acid, Venous 3.3 H* 08/02/19 09:40: WBC 5.1 D, RBC 2.46 L, Hgb 9.7 L, Hct 27.5 L, MCV 111.8 H, MCH 39.4 H, MCHC 35.3, RDW 13.7, Plt Count 41 L, MPV 11.1, Immature Gran % (Auto) 0.40, Immature Gran # (Auto) 0.02, Neutrophils % 75.2 H, Lymphocytes % 18.3 L, Monocytes % 5.3, Eosinophils % 0.6, Basophils % 0.2, Nucleated RBC % 0.0, Neutrophils # 3.9, Lymphocytes # 0.94 L, Monocytes # 0.3, Eosinophils # 0.0, Absolute Basophils 0.0 08/02/19 09:40: Sodium 137, Plasma Sodium 138, Potassium 3.1 L, Chloride 102, Carbon Dioxide 24.8, Anion Gap 13.3, BUN 8, Creatinine 0.76, Est GFR (Non-Af Amer) 87 D, BUN/Creatinine Ratio 10.5, Random Glucose 132 H, Calcium 7.5 L, Calcium Adj for Albumin 8.5, Total Bilirubin 4.7 H, AST 232 H, ALT 75 H, Alkaline Phosphatase 86, Total Protein 6.7, Albumin 2.4 L 08/02/19 09:40: Lactic Acid, Venous 2.8 H* 08/03/19 05:40: Sodium 140, Plasma Sodium 140, Potassium 3.4, Chloride 104, Carbon Dioxide 29.0, Anion Gap 10.4, BUN 7, Creatinine 0.68, Est GFR (Non-Af Amer) 99, BUN/Creatinine Ratio 10.3, Random Glucose 122 H, Calcium 8.2, Calcium Adj for Albumin 9.2, Total Bilirubin 7.5 H, AST 196 H, ALT 70 H, Alkaline Phosphatase 92, Total Protein 6.8, Albumin 2.3 L 08/04/19 05:15: WBC 4.3, RBC 2.46 L, Hgb 9.9 L, Hct 28.8 L, MCV 117.1 H, MCH 40.2 H, MCHC 34.4, RDW 14.6 H, Plt Count 41 L, MPV 12.1, Immature Gran % (Auto) 0.50 H, Immature Gran # (Auto) 0.02, Neutrophils % 77.0 H, Lymphocytes % 14.8 L, Monocytes % 5.6, Eosinophils % 1.9, Basophils % 0.2, Nucleated RBC % 0.0, Neutrophils # 3.3, Lymphocytes # 0.64 L, Monocytes # 0.2, Eosinophils # 0.1, Absolute Basophils 0.0 08/04/19 05:15: Sodium 137, Plasma Sodium 138, Potassium 3.3 L, Chloride 102, Carbon Dioxide 30.2, Anion Gap 8.1, BUN 7, Creatinine 0.76, Est GFR (Non-Af Amer) 87, BUN/Creatinine Ratio 9.2, Random Glucose 146 H, Calcium 8.5, Calcium Adj for Albumin 9.6, Total Bilirubin 5.6 H, AST 131 H, ALT 61, Alkaline Phosphatase 89, Total Protein 6.3, Albumin 2.2 L Discharge Location: Home Disposition: Home self-care Condition: Fair Discharge Activity: Activity as tolerated Discharge Diet: General/regular food Referrals: Reggie Davis DO [Primary Care Provider] - Prescriptions (Any new or edited meds): Cefdinir 300 mg PO BID #4 cap Complete Home Medications List: Complete Home Medication List: levothyroxine 100 mcg capsule 100 mcg PO DAILY #30 cap 12/06/18 albuterol sulfate HFA 90 mcg/actuation aerosol inhaler 2 inh IH Q6H PRN #8.5 g 01/28/19 gabapentin 300 mg capsule 300 mg PO Q8H #90 cap 01/28/19 furosemide 20 mg tablet 20 mg PO DAILY #30 tab 07/31/19 hydroxyzine HCl 25 mg tablet 25 mg PO BID PRN #60 tab 07/31/19 Amitriptyline HCl [Elavil] 50 mg PO HS PRN 08/01/19 Beclomethasone Dipropionate [Qvar Redihaler] 10.6 gm INHALATION PRN PRN 08/01/19 Diclofenac Sodium [Voltaren] 50 mg PO TID 08/01/19 LORazepam [Ativan] 1 mg PO TID PRN 08/01/19 Omeprazole 40 mg PO DAILY 08/01/19 chlordiazePOXIDE HCL [Librium] 25 - 50 mg PO QID 08/01/19 Cefdinir 300 mg PO BID #4 cap 08/04/19
[2019-08-04] MEDS: chlordiazePOXIDE HCL 25 MG CAPSULE PO SCH (10:10)
[2019-08-04] MEDS: DICLOFENAC SODIUM 50 MG TABLET.DR PO SCH (10:10)
[2019-08-04] MEDS: PANTOPRAZOLE SODIUM 40 MG TABLET.EC PO SCH (10:10)
[2019-08-04] MEDS: FUROSEMIDE 20 MG TABLET PO SCH (10:21)
[2019-08-04 14:38] VITALS: BP 141/75
== END 2019-08-04 14:50 | disposition home or self-care (01) ==
LOC: ER 19:45 → MS 19:45
PROVIDERS: ADMIT Internal Medicine; ATTEND Internal Medicine
DX: N39.0 Urinary tract infection, site not specified; Z23 Encounter for immunization; D69.6 Thrombocytopenia, unspecified; R26.81 Unsteadiness on feet; E87.2 Acidosis; E87.6 Hypokalemia
CPT/HCPCS: 36415; 80053; 80320; 81001; 82140; 82150; 83605; 83690; 85025; 85610; 85730; 87040; 87077; 87081; 87086; 87186; 90686; 93005; 96365; 97110; 97116; 97161; 99285; G0008; G0378; G0481

== ENCOUNTER 2019-08-15 17:47 | Observation (INO) ==
--- NOTE | 2019-08-15 18:50 | ERNOTE ---
<Tj Mendez - Last Filed: 08/15/19 19:39> Head Injury HPI - General Injury to: head Time Seen by Provider: 08/15/19 18:40 Source: patient Exam Limitations: no limitations - Immun/Allergies/Home Medications Immunization: IMMUNIZATION HX Immunizations Up to Date Yes History of Influenza Vaccine No Hx Pneumococcal Vaccination No Allergies/Adverse Reactions: Allergies Allergy/AdvReac Type Severity Reaction Status Date / Time No Known Allergies Allergy Verified 08/15/19 17:57 Home Medications: HOME MEDICATIONS levothyroxine 100 mcg capsule 100 mcg PO DAILY #30 cap 12/06/18 [Last Taken Unknown] gabapentin 300 mg capsule 300 mg PO Q8H #90 cap 01/28/19 [Last Taken Unknown] hydroxyzine HCl 25 mg tablet 25 mg PO BID PRN #60 tab 07/31/19 [Last Taken Unknown] Amitriptyline HCl [Elavil] 50 mg PO HS PRN 08/01/19 [Last Taken Unknown] Beclomethasone Dipropionate [Qvar Redihaler] 10.6 gm INHALATION PRN PRN 08/01/19 [Last Taken Unknown] Diclofenac Sodium [Voltaren] 50 mg PO TID 08/01/19 [Last Taken Unknown] Omeprazole 40 mg PO DAILY 08/01/19 [Last Taken Unknown] albuterol sulfate 90 mcg/actuation aerosol inhaler 2 inh IH Q6H PRN #8.5 g 08/11/19 [Last Taken Unknown] furosemide 40 mg tablet 40 mg PO DAILY #30 tab 08/11/19 [Last Taken Unknown] lorazepam 1 mg tablet 1 mg PO TID PRN #90 tab 08/11/19 [Last Taken Unknown] oxycodone 5 mg tablet 5 mg PO BID #60 tab 08/11/19 [Last Taken Unknown] spironolactone 25 mg tablet 25 mg PO DAILY #30 tab 08/11/19 [Last Taken Unknown] - History of Present Illness Narrative: Patient stated that she fell and bumped her head nearly a month ago and is continuing to have some headaches. She has had a total of 2 CAT scans both which were unremarkable, but they did reveal a hematoma present. Patient is is continuing to drink excessively which I suspect is accounting for the altered mental status. Centrally possible she has a posttraumatic concussion syndrome as well and I will double check some blood work on her. Occurred: other - 3 weeks ago Location Occurred: home Severity: moderate Head Injury Location: occipital Method of Injury: Reports: fell Reason for Fall: Reports: lost balance - Secondary to excess alcohol consumption Review of Systems - Review of Systems Constitutional: Present: See HPI EYE: Present: no symptoms reported ENT: Present: no symptoms reported Respiratory: Present: no symptoms reported Cardiology: Present: no symptoms reported Gastrointestinal/Abdominal: Present: no symptoms reported Genitourinary: Present: no symptoms reported Musculoskeletal: Present: no symptoms reported Skin: Present: no symptoms reported Neurological: Present: See HPI Endocrine: Present: no symptoms reported Hematologic/Lymphatic: Present: no symptoms reported Psych: Present: no symptoms reported Medical History (Last Updated 08/15/19 @ 18:49 by Tj Mendez DO) Alcoholism Anxiety Hypertension Surgical History: Surgical History (Last Reviewed 08/11/19 @ 14:33 by Alda Correa CMA) History of History of appendectomy History of cholecystectomy History of shoulder surgery Family History: Family History (Last Reviewed 08/11/19 @ 14:33 by Alda Correa CMA) Other No pertinent family history Social History: (Last Updated 08/15/19 @ 02:55 by Reggie Davis DO) Social History: adopted: No Marital status: household members: friend(s) number of children: 2 current occupational status: unemployed Highest education level completed: some college, no degree Service: No Tobacco: Smoking Status: Current every day smoker Alcohol: alcohol intake: current Substance Use: substance use type: does not use Dietary Habits: caffeine: Yes Physical Exam - Physical Exam General Appearance: Present: wd/wn, alert, mild distress Head Exam: Present: other - It would appear the hematoma that was on the occipital area of the scalp finally broke open and there was some bleeding present Eye Exam: Normal inspection: bilateral, PERRL: bilateral Ears, Nose, Throat: Present: normal ENT inspection, H, normal pharynx Neck: Present: normal inspection, nontender Respiratory: Present: no respiratory distress, normal breath sounds, no accessory muscle use, chest nontender, lungs clear Cardiovascular/Chest: Present: regular rate, rhythm, no murmur, normal peripheral pulses Gastrointestinal/Abdominal: Present: normal bowel sounds, nontender, nondistended, soft, no organomegaly Rectal Exam: Present: deferred Back Exam: Present: normal inspection, normal range of motion Extremity Exam: Present: normal inspection, non-tender, no edema, normal range of motion Neurological Exam: Present: alert, oriented, normal mood/affect, other - Patient does have some slurred speech, although I suspect that is secondary to the continuing alcohol consumption Skin Exam: Present: normal color, warm/dry Lymphatic Exam: Present: no adenopathy Progress - Results and Orders Patient's Lab Results:: I have reviewed the patient's lab results. - Vital Signs Patient's Vital Signs:: I have reviewed the patient's vital signs. Vital Signs: Vital Signs 08/15/19 17:54 08/15/19 18:30 Temperature 36.6 C Pulse Rate 95 98 Respiratory Rate 16 18 Blood Pressure 117/74 125/72 O2 Sat by Pulse Oximetry 93 94 - Progress/Reassessment Chief Complaint: Head Injury - Transfer of Care Physician Sign Out: Tj Mendez Receiving Physician: Selena Colón Expected Disposition: Admit Plan - Plan Plan: Patient would need to be admitted overnight for cautious hydration and correction of the severe hypokalemia. Patient is already had 2 CAT scans and I do not believe this is from the fall, I believe this is from her severe intoxication. Departure Clinical Impression: Hypokalemia Alcohol intoxication Qualifiers: Complication of substance-induced condition: with unspecified complication Qualified Code(s): F10.929 - Alcohol use, unspecified with intoxication, unspecified - Departure Disposition: Still a patient Condition: Fair Referrals: Reggie Davis DO [Primary Care Provider] - <Selena Colón - Last Filed: 08/15/19 20:41> Head Injury HPI - Immun/Allergies/Home Medications Immunization: IMMUNIZATION HX Immunizations Up to Date Yes History of Influenza Vaccine No Hx Pneumococcal Vaccination No Medical History (Last Updated 08/15/19 @ 18:49 by Tj Mendez DO) Alcoholism Anxiety Hypertension Surgical History: Surgical History (Last Reviewed 08/11/19 @ 14:33 by Alda Correa CMA) History of History of appendectomy History of cholecystectomy History of shoulder surgery Family History: Family History (Last Reviewed 08/11/19 @ 14:33 by Alda Correa CMA) Other No pertinent family history Social History: (Last Updated 08/15/19 @ 02:55 by Reggie Davis DO) Social History: adopted: No Marital status: household members: friend(s) number of children: 2 current occupational status: unemployed Highest education level completed: some college, no degree Service: No Tobacco: Smoking Status: Current every day smoker Alcohol: alcohol intake: current Substance Use: substance use type: does not use Dietary Habits: caffeine: Yes Progress - Results and Orders Patient's Lab Results:: I have reviewed the patient's lab results. - Vital Signs Patient's Vital Signs:: I have reviewed the patient's vital signs. Vital Signs: Vital Signs 08/15/19 17:54 08/15/19 18:30 08/15/19 18:57 Temperature 36.6 C Pulse Rate 95 98 91 Respiratory Rate 16 18 18 Blood Pressure 117/74 125/72 116/76 O2 Sat by Pulse Oximetry 93 94 94 08/15/19 20:02 Temperature Pulse Rate 98 Respiratory Rate 20 Blood Pressure 125/64 O2 Sat by Pulse Oximetry 91 L - EKG EKG #1 EKG: NSR EKG read: Reviewed by me - Progress/Reassessment Progress:: Unchanged Progress Note-Subjective: 08/15/19 20:[address] Chacon who is hospitalist. We discussed admitting the patient observation for hypokalemia and acute alcohol intoxication. She had been given 40 mg oral potassium replacement as well as 1 L of fluids. Plan is for additional 1 L of fluids overnight with 20 IV potassium, continue monitoring overnight and repeat blood work in the morning to ensure that her electrolytes have self corrected. Dr. Chacon agreed. Patient will be admitted observation for monitoring, additional potassium and IV fluids.
[2019-08-15 19:00] LABS: Hematocrit 32.2 % (37.0-47.0); Hemoglobin 10.9 gm/dL (12.5-16.0); Mean Cell Volume 118.8 fl (78-100); Mean Corpuscular Hemoglobin 40.2 pg (27-31); Mean Corpuscular Hgb Conc 33.9 g/dl (32-36); Mean Platelet Volume 10.6 fl (8-12.5); Platelet Count 172 K/mm3 (150-450); Red Blood Count 2.71 M/mm3 (4.2-5.4); Red Cell Distribution Width 16.4 % (11.5-14.0); White Blood Count 8.9 K/mm3 (4.0-10.5)
[2019-08-15 19:10] LABS: Prothrombin Time (Patient) 14.3 Seconds (9.1-10.7)
[2019-08-15 19:14] LABS: BUN/Creatinine Ratio 9.1 (9.0-21.6); Carbon Dioxide 35.8 mmol/L (24-32.6)
[2019-08-15 19:15] LABS: Albumin * 2.5 gm/dl (3.4-5.0); Anion Gap 8.5 mmol/L (6.8-13.8); Bilirubin, Total 3.4 mg/dL (0.0-1.1); Ca. Corrected For Albumin 8.9 mg/dL (8.4-10.2); Magnesium 1.5 mg/dL (1.2-2.8); Total Protein 7.9 gm/dL (6.2-8.2)
[2019-08-15 19:18] LABS: INR 1.47 INR (0.92-1.08)
[2019-08-15 19:21] LABS: Total Cells Counted 100
[2019-08-15] MEDS ORDERED: POTASSIUM CHLORIDE 20 MEQ TABLET.SA PO ONE (19:22)
[2019-08-15 19:30] LABS: Atypical (Reactive) Lymph 2 % (0-2); Basophil 1 % (0-1); Lymphocyte 13 % (20-51); Monocyte 8 % (0-9); Neutrophil 76 % (42-75); Neutrophil # 6.8 K/mm3 (1.3-6.0)
[2019-08-15] MEDS ORDERED: NORMAL SALINE 1,000 ML IV ONE (19:30)
[2019-08-15 19:31] LABS: Macrocytosis 2+; Platelet Estimate Normal (NORMAL); Target Cells 1+
[2019-08-15 19:33] LABS: Potassium 2.3 mmol/L (3.4-4.6)
[2019-08-15 20:26] LABS: Urine Bilirubin 1 mg/dl (NEGATIVE); Urine Blood Negative /ul (NEGATIVE); Urine Ketone Negative (NEGATIVE); Urine Nitrite Negative (NEGATIVE); Urine Protein Negative (NEGATIVE); Urine Urobilinogen 4 EU/dl (NORMAL)
[2019-08-15 20:27] LABS: Urine Appearance Slightly Cloudy (CLEAR); Urine Bacteria TRACE; Urine Color Dark Yellow; Urine Mucus Few - 1+; Urine RBC None Seen /hpf (0-5); Urine Renal Epithelial Cell Few - 1+ /hpf; Urine WBC TRACE /hpf (0-5)
[2019-08-15] MEDS: POTASSIUM CHLORIDE 20 MEQ in NORMAL SALINE 1,000 ML IV SCH (22:42)
[2019-08-16 06:17] LABS: Hematocrit 27.5 % (37.0-47.0); Hemoglobin 9.1 gm/dL (12.5-16.0); Mean Cell Volume 120.6 fl (78-100); Mean Corpuscular Hemoglobin 39.9 pg (27-31); Mean Corpuscular Hgb Conc 33.1 g/dl (32-36); Mean Platelet Volume 10.4 fl (8-12.5); Neutrophil # 2.9 K/mm3 (1.3-6.0); Neutrophil % 55.2 % (42-75.0); Platelet Count 132 K/mm3 (150-450); Red Blood Count 2.28 M/mm3 (4.2-5.4); Red Cell Distribution Width 16.6 % (11.5-14.0); White Blood Count 5.2 K/mm3 (4.0-10.5)
[2019-08-16 06:42] LABS: BUN/Creatinine Ratio 7.8 (9.0-21.6); Bilirubin, Total 2.4 mg/dL (0.0-1.1); Ca. Corrected For Albumin 8.6 mg/dL (8.4-10.2); Calcium * 7.3 mg/dL (7.9-10.9); Carbon Dioxide 34.9 mmol/L (24-32.6); Potassium 2.9 mmol/L (3.4-4.6); Total Protein 6.6 gm/dL (6.2-8.2)
[2019-08-16] MEDS: POTASSIUM CHLORIDE 20 MEQ in NORMAL SALINE 1,000 ML IV SCH (09:30)
[2019-08-16] MEDS ORDERED: hydrOXYzine HCL 25 MG TABLET PO PRN (11:20)
[2019-08-16] MEDS ORDERED: AMITRIPTYLINE HCL 25 MG TABLET PO PRN (11:20)
[2019-08-16] MEDS ORDERED: LORazepam 1 MG TABLET PO PRN (11:20)
[2019-08-16] MEDS ORDERED: ALBUTEROL SULFATE 2.5 MG/0.5 ML VIAL.NEB IH PRN (11:20)
[2019-08-16] MEDS ORDERED: ALBUTEROL SULFATE/IPRATROPIUM 3 ML NEBU IH PRN (11:30)
[2019-08-16] MEDS ORDERED: POTASSIUM CHLORIDE 20 MEQ TABLET.SA PO ONE (11:51)
[2019-08-16] MEDS ORDERED: MULTIVIT INFUSN,ADULT 4,VIT K 10 ML, THIAMINE HCL 100 MG in DEXTROSE 5 % IN WATER 1,000 ML IV SCH ×3 (12:00)
[2019-08-16] MEDS ORDERED: BUDESONIDE 0.5 MG/2 ML VIAL.NEB IH PRN (12:00)
--- NOTE | 2019-08-16 12:17 | HP ---
Chief Complaint - Chief Complaint Date of Service: 08/16/19 Time of Service: 08:50 Chief Complaint: Alcohol intoxication, closed head injury, altered mental status History of Present Illness: Lesly hunter is a 44-year-old female who presented to the emergency room with a abrasion that was bleeding on the occiput and altered mental status. She is extremely inebriated with alcohol of greater than 340. Crystal suffers from chronic alcoholism and has had multiple admissions here for the same. She usually leaves AGAINST MEDICAL ADVICE. She is has asked to CT imagings of her head. She states that the initial injury was a month ago but there is fresh bleeding from an abrasion on the occiput on admission. She is in serious trouble with her alcoholism with liver failure. She has jaundice with elevated bilirubin and ascites. She also has an acute pancreatitis and had been having nausea vomiting and diarrhea at home. She is complaining of abdominal pain with tenderness in the bilateral hypochondria. She has a macrocytic anemia with an MCV of about 120 and hemoglobin of 9.2 g. Potassium was 2.3 in the emergency room and is 2.9 this morning. Normal this morning she is still sleepy and still has some slurring of words. I have advised her of the seriousness of her liver and pancreas conditions and she says she just cannot stop drinking alcohol. I did give her a regular diet for breakfast and she is tolerated that well with no increased abdominal pain or vomiting. She also has COPD with asthma and is wheezing a lot this morning. We will start respiratory therapy treatments. Medical History (Last Reviewed 08/16/19 @ 06:39 by Charline Irwin RN) Alcoholism Anxiety Hypertension Surgical History: Surgical History (Last Reviewed 08/16/19 @ 06:39 by Charline Irwin RN) History of History of appendectomy History of cholecystectomy History of shoulder surgery Family History: Family History (Last Reviewed 08/16/19 @ 06:39 by Charline Irwin RN) Other No pertinent family history Social History: (Last Reviewed 08/16/19 @ 06:39 by Charline Irwin RN) Social History: adopted: No Marital status: household members: friend(s) number of children: 2 current occupational status: unemployed Highest education level completed: some college, no degree Service: No Tobacco: Smoking Status: Current every day smoker Alcohol: alcohol intake: current Substance Use: substance use type: does not use Dietary Habits: caffeine: Yes Review Of Systems (GEN) - Review of Systems Generalized/Overall Review: Present: Weakness, Malaise, Weight loss EENTM: Present: No Symptoms Reported Respiratory: Present: Cough, Shortness of Breath, Wheezing Cardiac: Present: No Symptoms Reported Abdominal: Present: Nausea, Vomiting - The nausea vomiting and diarrhea are better this morning, Abdominal Pain, Diarrhea, Other - Abdominal distention Genitourinary: Present: No Symptoms Reported Musculoskeletal: Present: No Symptoms Reported Neurological: Present: Depressed, Emotional Problems, Weakness Skin: Present: Change in Color - Icteric jaundice and cutaneous jaundice Immunizations: IMMUNIZATION HX Immunizations Up to Date Yes History of Influenza Vaccine No Hx Pneumococcal Vaccination No Allergies/Adverse Reactions: Allergies Allergy/AdvReac Type Severity Reaction Status Date / Time No Known Allergies Allergy Verified 08/15/19 21:41 Home Medications: HOME MEDICATIONS levothyroxine 100 mcg capsule 100 mcg PO DAILY #30 cap 12/06/18 [Last Taken Unknown] gabapentin 300 mg capsule 300 mg PO Q8H #90 cap 01/28/19 [Last Taken Unknown] hydroxyzine HCl 25 mg tablet 25 mg PO BID PRN #60 tab 07/31/19 [Last Taken Unknown] Amitriptyline HCl [Elavil] 50 mg PO HS PRN 08/01/19 [Last Taken Unknown] Beclomethasone Dipropionate [Qvar Redihaler] 10.6 gm INHALATION PRN PRN 08/01/19 [Last Taken Unknown] Diclofenac Sodium [Voltaren] 50 mg PO TID 08/01/19 [Last Taken Unknown] Omeprazole 40 mg PO DAILY 08/01/19 [Last Taken Unknown] albuterol sulfate 90 mcg/actuation aerosol inhaler 2 inh IH Q6H PRN #8.5 g 08/11/19 [Last Taken Unknown] furosemide 40 mg tablet 40 mg PO DAILY #30 tab 08/11/19 [Last Taken Unknown] lorazepam 1 mg tablet 1 mg PO TID PRN #90 tab 08/11/19 [Last Taken Unknown] oxycodone 5 mg tablet 5 mg PO BID #60 tab 08/11/19 [Last Taken Unknown] spironolactone 25 mg tablet 25 mg PO DAILY #30 tab 08/11/19 [Last Taken Unknown] Exam - Exam Vital Signs: Vital Signs - Last Taken Temp 36.9 C 08/16/19 10:00 Pulse 88 08/16/19 11:22 Resp 20 08/16/19 10:00 BP 119/60 08/16/19 10:00 Pulse Ox 93 08/16/19 11:39 Constitutional: Present: Alert, Oriented x3, Well developed, Middle aged, Obese, Looks Older than stated age Eye Exam: bilateral eye: normal inspection, PERRL, EOMI, scleral icterus Neck: Present: non-tender, full range of motion, supple, normal inspection, trachea midline Back Exam: Present: normal inspection, no CVA tenderness, no vertebral tenderness Breasts: Present: Exam deferred Respiratory: Present: decreased breath sounds, rhonchi, wheezing, expiration (prolonged) Cardiovascular/Chest: Present: normal peripheral pulses, regular rate, rhythm, no chest tenderness, no edema, no gallop, no JVD, no murmur, no rub Peripheral Pulses: carotid (R): 2+, carotid (L): 2+, radial (R): 2+, radial (L): 2+ Abdomen: Present: Normal bowel sounds, obese, tender, guarding, firm - On palpation of the liver, distended - Due to abdominal ascites with positive succussion splash /Rectal: Present: Exam deferred Extremity: Present: normal range of motion, non-tender, normal inspection, no pedal edema, no calf tenderness, normal capillary refill Skin Exam: Present: jaundice Lymphatic: Present: no adenopathy Neurologic: Present: offal trimmer II-XII nml as tested, no motor/sensory deficits, alert, normal mood/affect, oriented x 3, abnormal gait, motor weakness Appearance: Present: no memory impairment, disheveled, impaired insight Eye contact: Present: avoids eye contact, belligerent, uncooperative Thoughts: Present: no apparent hallucination Diagnostic Studies: Abnormal Lab Results 08/15/19 08/15/19 08/15/19 Range/Units 18:55 18:55 18:55 RBC 2.71 L (4.2-5.4) M/mm3 Hgb 10.9 L (12.5-16.0) gm/dL Hct 32.2 L (37.0-47.0) % MCV 118.8 H (78-100) fl MCH 40.2 H (27-31) pg RDW 16.4 H (11.5-14.0) % Plt Count (150-450) K/mm3 Neutrophils % (Manual) 76 H (42-75) % Lymphocytes % (Manual) 13 L (20-51) % Monocytes % (0.0-9) % Neutrophils # (Manual) 6.8 H (1.3-6.0) K/mm3 Lymphocytes # (1.5-3.5) k/mm3 Lymphocytes # (Manual) 1.2 L (1.5-3.5) k/mm3 PT 14.3 H (9.1-10.7) Seconds INR (Anticoag Therapy) 1.47 H (0.92-1.08) INR Potassium 2.3 L* D (3.4-4.6) mmol/L Chloride 95 L (97-106) mmol/L Carbon Dioxide 35.8 H (24-32.6) mmol/L BUN/Creatinine Ratio (9.0-21.6) Random Glucose 143 H (70-110) mg/dL Calcium (7.9-10.9) mg/dL Total Bilirubin 3.4 H (0.0-1.1) mg/dL AST 71 H (0-48) U/L Albumin 2.5 L (3.4-5.0) gm/dl Lipase (73-393) U/L Urine Bilirubin (NEGATIVE) mg/dl Urine Urobilinogen (NORMAL) EU/dl Urine WBC (0-5) /hpf Ur Renal Epithelial Cell (NONE) /hpf Uric Acid Crystals (NONE) /hpf Fine Granular Casts (NONE) /LPF Urine Mucus (NONE) Ethyl Alcohol 349.0 H (0.0-10.0) mg/dL 08/15/19 08/16/19 08/16/19 Range/Units 20:13 06:10 06:10 RBC 2.28 L (4.2-5.4) M/mm3 Hgb 9.1 L (12.5-16.0) gm/dL Hct 27.5 L (37.0-47.0) % MCV 120.6 H (78-100) fl MCH 39.9 H (27-31) pg RDW 16.6 H (11.5-14.0) % Plt Count 132 L (150-450) K/mm3 Neutrophils % (Manual) (42-75) % Lymphocytes % (Manual) (20-51) % Monocytes % 15.7 H (0.0-9) % Neutrophils # (Manual) (1.3-6.0) K/mm3 Lymphocytes # 1.37 L (1.5-3.5) k/mm3 Lymphocytes # (Manual) (1.5-3.5) k/mm3 PT (9.1-10.7) Seconds INR (Anticoag Therapy) (0.92-1.08) INR Potassium 2.9 L D (3.4-4.6) mmol/L Chloride (97-106) mmol/L Carbon Dioxide 34.9 H (24-32.6) mmol/L BUN/Creatinine Ratio 7.8 L (9.0-21.6) Random Glucose 181 H (70-110) mg/dL Calcium 7.3 L (7.9-10.9) mg/dL Total Bilirubin 2.4 H (0.0-1.1) mg/dL AST 71 H (0-48) U/L Albumin 2.0 L (3.4-5.0) gm/dl Lipase 436 H (73-393) U/L Urine Bilirubin 1 H (NEGATIVE) mg/dl Urine Urobilinogen 4 H (NORMAL) EU/dl Urine WBC Trace H (0-5) /hpf Ur Renal Epithelial Cell Few - 1+ H (NONE) /hpf Uric Acid Crystals Moderate - 2+ H (NONE) /hpf Fine Granular Casts 10-25 H (NONE) /LPF Urine Mucus Few - 1+ H (NONE) Ethyl Alcohol (0.0-10.0) mg/dL Laboratory Results WBC 5.2 K/mm3 (4.0-10.5) D 08/16/19 06:10 RBC 2.28 M/mm3 (4.2-5.4) L 08/16/19 06:10 Hgb 9.1 gm/dL (12.5-16.0) L 08/16/19 06:10 Hct 27.5 % (37.0-47.0) L 08/16/19 06:10 MCV 120.6 fl (78-100) H 08/16/19 06:10 MCH 39.9 pg (27-31) H 08/16/19 06:10 MCHC 33.1 g/dl (32-36) 08/16/19 06:10 RDW 16.6 % (11.5-14.0) H 08/16/19 06:10 Plt Count 132 K/mm3 (150-450) L 08/16/19 06:10 MPV 10.4 fl (8-12.5) 08/16/19 06:10 Immature Gran % (Auto) 0.40 % (0.001-0.429) 08/16/19 06:10 Immature Gran # (Auto) 0.02 K/mm3 (0.000-0.0310) 08/16/19 06:10 Neutrophils % 55.2 % (42-75.0) 08/16/19 06:10 Neutrophils % (Manual) 76 % (42-75) H 08/15/19 18:55 Lymphocytes % 26.2 % (20-51) 08/16/19 06:10 Lymphocytes % (Manual) 13 % (20-51) L 08/15/19 18:55 Monocytes % 15.7 % (0.0-9) H 08/16/19 06:10 Monocytes % (Manual) 8 % (0-9) 08/15/19 18:55 Eosinophils % 1.9 % (0.0-3.0) 08/16/19 06:10 Basophils % 0.6 % (0.0-1.0) 08/16/19 06:10 Basophils % (Manual) 1 % (0-1) 08/15/19 18:55 Nucleated RBC % 0.0 k/mm3 (0-1) 08/16/19 06:10 Neutrophils # 2.9 K/mm3 (1.3-6.0) 08/16/19 06:10 Neutrophils # (Manual) 6.8 K/mm3 (1.3-6.0) H 08/15/19 18:55 Lymphocytes # 1.37 k/mm3 (1.5-3.5) L 08/16/19 06:10 Lymphocytes # (Manual) 1.2 k/mm3 (1.5-3.5) L 08/15/19 18:55 Monocytes # 0.8 k/mm3 (0.0-1.0) 08/16/19 06:10 Monocytes # (Manual) 0.7 k/mm3 (0.0-1.0) 08/15/19 18:55 Eosinophils # 0.1 k/mm3 (0.0-0.7) 08/16/19 06:10 Basophils # (Manual) 0.1 k/mm3 (0.0-0.1) 08/15/19 18:55 Absolute Basophils 0.0 k/mm3 (0.0-0.1) 08/16/19 06:10 Atypic/Reactive Lymphs 2 % (0-2) 08/15/19 18:55 Platelet Estimate Normal (NORMAL) 08/15/19 18:55 Macrocytosis 2+ 08/15/19 18:55 Target Cells 1+ 08/15/19 18:55 PT 14.3 Seconds (9.1-10.7) H 08/15/19 18:55 INR (Anticoag Therapy) 1.47 INR (0.92-1.08) H 08/15/19 18:55 Sodium 139 mmol/L (132-142) 08/16/19 06:10 Plasma Sodium 140 mmol/L (130-142) 08/16/19 06:10 Potassium 2.9 mmol/L (3.4-4.6) L D 08/16/19 06:10 Chloride 99 mmol/L (97-106) 08/16/19 06:10 Carbon Dioxide 34.9 mmol/L (24-32.6) H 08/16/19 06:10 Anion Gap 8.0 mmol/L (6.8-13.8) 08/16/19 06:10 BUN 6 mg/dL (3-23) 08/16/19 06:10 Creatinine 0.77 mg/dL (0.4-1.4) 08/16/19 06:10 Est GFR (Non-Af Amer) 86 mL/min (60-130) 08/16/19 06:10 BUN/Creatinine Ratio 7.8 (9.0-21.6) L 08/16/19 06:10 Random Glucose 181 mg/dL (70-110) H 08/16/19 06:10 Calcium 7.3 mg/dL (7.9-10.9) L 08/16/19 06:10 Calcium Adj for Albumin 8.6 mg/dL (8.4-10.2) 11/02/19 06:10 Magnesium 1.5 mg/dL (1.2-2.8) 08/15/19 18:55 Total Bilirubin 2.4 mg/dL (0.0-1.1) H 08/16/19 06:10 AST 71 U/L (0-48) H 08/16/19 06:10 ALT 23 U/L (19-67) 08/16/19 06:10 Alkaline Phosphatase 74 U/L (50-170) 08/16/19 06:10 Ammonia 29.0 mcmol/L (11-35) 08/15/19 18:55 Total Protein 6.6 gm/dL (6.2-8.2) 08/16/19 06:10 Albumin 2.0 gm/dl (3.4-5.0) L 08/16/19 06:10 Lipase 436 U/L (73-393) H 08/16/19 06:10 Urine Color Dark yellow 08/15/19 20:13 Urine Appearance Slightly cloudy (CLEAR) 08/15/19 20:13 Urine pH 6.0 pH (5.0-7.0) 08/15/19 20:13 Ur Specific [place] 1.020 SP.GR. (1.005-1.010) 08/15/19 20:13 Urine Protein Negative mg/dL (NEGATIVE) 08/15/19 20:13 Urine Glucose (UA) Negative mg/dL (NEGATIVE) 08/15/19 20:13 Urine Ketones Negative mg/dL (NEGATIVE) 08/15/19 20:13 Urine Blood Negative /ul (NEGATIVE) 08/15/19 20:13 Urine Nitrate Negative (NEGATIVE) 08/15/19 20:13 Urine Bilirubin 1 mg/dl (NEGATIVE) H 08/15/19 20:13 Urine Ictotest Negative (NEGATIVE) 08/15/19 20:13 Urine Urobilinogen 4 EU/dl (NORMAL) H 08/15/19 20:13 Ur Leukocyte Esterase Negative /ul (NEGATIVE) 08/15/19 20:13 Urine RBC None seen /hpf (0-5) 08/15/19 20:13 Urine WBC Trace /hpf (0-5) H 08/15/19 20:13 Ur Epithelial Cells None seen /hpf (0-5) 08/15/19 20:13 Ur Renal Epithelial Cell Few - 1+ /hpf (NONE) H 08/15/19 20:13 Uric Acid Crystals Moderate - 2+ /hpf (NONE) H 08/15/19 20:13 Urine Bacteria Trace (NONE) 08/15/19 20:13 Fine Granular Casts 10-25 /LPF (NONE) H 08/15/19 20:13 Urine Mucus Few - 1+ (NONE) H 08/15/19 20:13 Urine Culture Comments No culture indicated 08/15/19 20:13 Ethyl Alcohol 349.0 mg/dL (0.0-10.0) H 08/15/19 18:55 Assessment/Plan - Narrative Narrative: 1. Progress diet and activity as tolerated 2. Redosed with potassium 40 mEq to try to get her above 3.0 3. Repeat ethanol level was ordered but insurance informed that they would not pay for a repeat level and that it would be $434 for the patient to pay out of pocket which of course she cannot do. 4. Check serum B12 and folic acid levels. She is most likely depleted and folate from her alcoholism explaining her severe macrocytosis and moderate anemia. 5. Recheck CBC, CMP, and lipase tomorrow morning if she still here 6. Check serum ammonia level on this morning's lab. - Assessment/Plan (1) Alcohol intoxication Problem: Acute Qualifiers: Complication of substance-induced condition: with unspecified complication Qualified Code(s): F10.929 - Alcohol use, unspecified with intoxication, unspecified (2) Pancreatitis, alcoholic, acute Problem: Acute Qualifiers: Acute pancreatitis complication: no infection or necrosis Qualified Code( s): K85.20 - Alcohol induced acute pancreatitis without necrosis or infection (3) Nausea and vomiting Problem: Resolved Qualifiers: Vomiting type: bilious vomiting Qualified Code(s): R11.14 - Bilious vomiting (4) Macrocytic anemia Problem: Chronic (5) Ascites due to alcoholic cirrhosis Problem: Chronic (6) Diarrhea Problem: Resolved Qualifiers: Diarrhea type: functional diarrhea Qualified Code(s): K59.1 - Functional diarrhea (7) Liver failure Problem: Chronic Qualifiers: Liver failure chronicity: chronic Hepatic coma status: without hepatic coma Qualified Code(s): K72.10 - Chronic hepatic failure without coma (8) Scalp abrasion Problem: Acute Qualifiers: Encounter type: subsequent encounter Qualified Code(s): S00.01XD - Abrasion of scalp, subsequent encounter (9) Head injury Problem: Acute Qualifiers: Encounter type: subsequent encounter Qualified Code(s): S09.90XD - Unspecified injury of head, subsequent encounter (10) Thrombocytopenia Problem: Chronic (11) Increased ammonia level Problem: Acute (12) Elevated liver function tests Problem: Acute
[2019-08-16] MEDS ORDERED: NICOTINE 21 MG PATC TD SCH (13:15)
[2019-08-16] MEDS ORDERED: oxyCODONE HCL 5 MG TABLET PO SCH (13:45)
[2019-08-16 13:59] VITALS: BP 139/76
--- NOTE | 2019-08-16 15:02 | DS ---
(1) Alcohol intoxication Problem: Acute Qualifiers: Complication of substance-induced condition: with unspecified complication Qualified Code(s): F10.929 - Alcohol use, unspecified with intoxication, unspecified (2) Pancreatitis, alcoholic, acute Problem: Acute Qualifiers: Acute pancreatitis complication: no infection or necrosis Qualified Code(s): K85.20 - Alcohol induced acute pancreatitis without necrosis or infection (3) Nausea and vomiting Problem: Resolved Qualifiers: Vomiting type: bilious vomiting Qualified Code(s): R11.14 - Bilious vomiting (4) Macrocytic anemia Problem: Chronic (5) Ascites due to alcoholic cirrhosis Problem: Chronic (6) Diarrhea Problem: Resolved Qualifiers: Diarrhea type: functional diarrhea Qualified Code(s): K59.1 - Functional diarrhea (7) Liver failure Problem: Chronic Qualifiers: Liver failure chronicity: chronic Hepatic coma status: without hepatic coma Qualified Code(s): K72.10 - Chronic hepatic failure without coma (8) Scalp abrasion Problem: Acute Qualifiers: Encounter type: subsequent encounter Qualified Code(s): S00.01XD - Abrasion of scalp, subsequent encounter (9) Head injury Problem: Acute Qualifiers: Encounter type: subsequent encounter Qualified Code(s): S09.90XD - Unspecified injury of head, subsequent encounter (10) Thrombocytopenia Problem: Chronic (11) Increased ammonia level Problem: Acute (12) Elevated liver function tests Problem: Acute Date of Discharge:: 08/16/19 Description of Stay: Lesly has awakened and appears to have cleared her alcohol for the most part. She is craving cigarettes however. I had a long talk with her this afternoon about her addictions and indeed needing to get help and she says she is going to go to an inpatient facility but she is in the process of moving. She refused lab work to be drawn today and she is insisting on leaving today. Therefore she is signing herself out AGAINST MEDICAL ADVICE and I have no doubt that she will go back and drink and smoke again and will revolve back here again. Her disposition is improved but her prognosis is very poor if she continues to use alcohol and tobacco. Procedures Performed: none Results and Findings: Lab Pending Results 08/15/19 18:55: WBC 8.9, RBC 2.71 L, Hgb 10.9 L, Hct 32.2 L, MCV 118.8 H, MCH 40.2 H, MCHC 33.9, RDW 16.4 H, Plt Count 172, MPV 10.6, Neutrophils % (Manual) 76 H, Lymphocytes % (Manual) 13 L, Monocytes % (Manual) 8, Basophils % (Manual) 1, Neutrophils # (Manual) 6.8 H, Lymphocytes # (Manual) 1.2 L, Monocytes # (Manual) 0.7, Basophils # (Manual) 0.1, Atypic/Reactive Lymphs 2, Platelet Estimate Normal, Macrocytosis 2+, Target Cells 1+ 08/15/19 18:55: PT 14.3 H, INR (Anticoag Therapy) 1.47 H 08/15/19 18:55: Sodium 137, Plasma Sodium 138, Potassium 2.3 L* D, Chloride 95 L, Carbon Dioxide 35.8 H, Anion Gap 8.5, BUN 7, Creatinine 0.77, Est GFR (Non-Af Amer) 86, BUN/Creatinine Ratio 9.1, Random Glucose 143 H, Calcium 8.0, Calcium Adj for Albumin 8.9, Magnesium 1.5, Total Bilirubin 3.4 H, AST 71 H, ALT 24, Alkaline Phosphatase 93, Total Protein 7.9, Albumin 2.5 L, Ethyl Alcohol 349.0 H 08/15/19 18:55: Ammonia 29.0 08/15/19 20:13: Urine Color Dark yellow, Urine Appearance Slightly cloudy, Urine pH 6.0, Ur Specific [place] 1.020, Urine Protein Negative, Urine Glucose (UA) Negative, Urine Ketones Negative, Urine Blood Negative, Urine Nitrate Negative, Urine Bilirubin 1 H, Urine Ictotest Negative, Urine Urobilinogen 4 H, Ur [place] kocyte Esterase Negative, Urine RBC None seen, Urine WBC Trace H, Ur Epithelial Cells None seen, Ur Renal Epithelial Cell Few - 1+ H, Uric Acid Crystals Moderate - 2+ H, Urine Bacteria Trace, Fine Granular Casts 10-25 H, Urine Mucus Few - 1+ H, Urine Culture Comments No culture indicated 08/16/19 06:10: WBC 5.2 D, RBC 2.28 L, Hgb 9.1 L, Hct 27.5 L, MCV 120.6 H, MCH 39.9 H, MCHC 33.1, RDW 16.6 H, Plt Count 132 L, MPV 10.4, Immature Gran % (Auto) 0.40, Immature Gran # (Auto) 0.02, Neutrophils % 55.2, Lymphocytes % 26.2, Monocytes % 15.7 H, Eosinophils % 1.9, Basophils % 0.6, Nucleated RBC % 0.0, Neutrophils # 2.9, Lymphocytes # 1.37 L, Monocytes # 0.8, Eosinophils # 0.1, Absolute Basophils 0.0 08/16/19 06:10: Sodium 139, Plasma Sodium 140, Potassium 2.9 L D, Chloride 99, Carbon Dioxide 34.9 H, Anion Gap 8.0, BUN 6, Creatinine 0.77, Est GFR (Non-Af Amer) 86, BUN/Creatinine Ratio 7.8 L, Random Glucose 181 H, Calcium 7.3 L, Calcium Adj for Albumin 8.6, Total Bilirubin 2.4 H, AST 71 H, ALT 23, Alkaline Phosphatase 74, Total Protein 6.6, Albumin 2.0 L, Lipase 436 H 08/16/19 11:52: Vitamin B12 1441 H, Folate 5.0 L 08/16/19 11:52: Ammonia 58.0 H Discharge Location: Home Disposition: Home self-care Condition: Fair Discharge Activity: Activity as tolerated Discharge Diet: General/regular food Referrals: Reggie Davis DO [Primary Care Provider] - Additional Patient Instructions (free text): 1. Stop all alcohol and tobacco usage 2. See Dr. Davis for follow-up in 2 weeks Complete Home Medications List: Complete Home Medication List: levothyroxine 100 mcg capsule 100 mcg PO DAILY #30 cap 12/06/18 gabapentin 300 mg capsule 300 mg PO Q8H #90 cap 01/28/19 hydroxyzine HCl 25 mg tablet 25 mg PO BID PRN #60 tab 07/31/19 Amitriptyline HCl [Elavil] 50 mg PO HS PRN 08/01/19 Beclomethasone Dipropionate [Qvar Redihaler] 10.6 gm INHALATION PRN PRN 08/01/19 Diclofenac Sodium [Voltaren] 50 mg PO TID 08/01/19 Omeprazole 40 mg PO DAILY 08/01/19 albuterol sulfate 90 mcg/actuation aerosol inhaler 2 inh IH Q6H PRN #8.5 g 08/11/19 furosemide 40 mg tablet 40 mg PO DAILY #30 tab 08/11/19 lorazepam 1 mg tablet 1 mg PO TID PRN #90 tab 08/11/19 oxycodone 5 mg tablet 5 mg PO BID #60 tab 08/11/19 spironolactone 25 mg tablet 25 mg PO DAILY #30 tab 08/11/19 Nicotine [Nicoderm] 21 mg TD Q24H patch.td24 08/16/19
[2019-08-17] MEDS ORDERED: PANTOPRAZOLE SODIUM 40 MG TABLET.EC PO SCH (07:00)
[2019-08-17] MEDS ORDERED: LEVOTHYROXINE SODIUM 100 MCG TABLET PO SCH (07:00)
[2019-08-17] MEDS ORDERED: THIAMINE HCL 100 MG TABLET PO SCH (09:00)
[2019-08-17] MEDS ORDERED: SPIRONOLACTONE 25 MG TABLET PO SCH (09:00)
== END 2019-08-16 15:20 | disposition left against medical advice (07) ==
LOC: MS 17:47 → ER 17:47 → MS 21:35
PROVIDERS: ADMIT Family Medicine; ATTEND Family Medicine
DX: F10.229 Alcohol dependence with intoxication, unspecified; D64.9 Anemia, unspecified; K85.20 Alcohol induced acute pancreatitis without necrosis or infection; S00.01XA Abrasion of scalp, initial encounter; R94.5 Abnormal results of liver function studies; S09.90XD Unspecified injury of head, subsequent encounter; K86.0 Alcohol-induced chronic pancreatitis; E87.6 Hypokalemia; D69.6 Thrombocytopenia, unspecified; R19.7 Diarrhea, unspecified; K70.31 Alcoholic cirrhosis of liver with ascites
CPT/HCPCS: 36415; 80053; 80320; 81001; 82140; 82607; 82746; 83690; 83735; 85025; 85610; 93005; 96365; 96366; 96367; 99285; G0378; G0481

== ENCOUNTER 2019-09-28 16:24 | Observation (INO) ==
[2019-09-28 16:56] LABS: Hematocrit 32.1 % (37.0-47.0); Hemoglobin 11.2 gm/dL (12.5-16.0); Mean Cell Volume 118.9 fl (78-100); Mean Corpuscular Hemoglobin 41.5 pg (27-31); Mean Corpuscular Hgb Conc 34.9 g/dl (32-36); Mean Platelet Volume 11.7 fl (8-12.5); Neutrophil # 4.5 K/mm3 (1.3-6.0); Neutrophil % 69.3 % (42-75.0); Platelet Count 93 K/mm3 (150-450); Red Cell Distribution Width 14.7 % (11.5-14.0); White Blood Count 6.4 K/mm3 (4.0-10.5)
[2019-09-28] MEDS ORDERED: THIAMINE HCL 100 MG in NORMAL SALINE 50 ML IV ONE (17:00)
--- NOTE | 2019-09-28 17:02 | ERNOTE ---
Abdominal HPI - General Chief Complaint: Abdominal Pain Time Seen by Provider: 09/28/19 16:41 Source: patient Exam Limitations: no limitations - Immun/Allergies/Home Medications Immunizatons: IMMUNIZATION HX Immunizations Up to Date Yes History of Influenza Vaccine Yes Hx Pneumococcal Vaccination Yes Allergies/Adverse Reactions: Allergies No Known Allergies Allergy (Verified 09/28/19 16:31) Home Medications: HOME MEDICATIONS levothyroxine 100 mcg capsule 100 mcg PO DAILY #30 cap 12/06/18 [Last Taken Unknown] gabapentin 300 mg capsule 300 mg PO Q8H #90 cap 01/28/19 [Last Taken Unknown] hydroxyzine HCl 25 mg tablet 25 mg PO BID PRN #60 tab 07/31/19 [Last Taken Unknown] Amitriptyline HCl [Elavil] 50 mg PO HS PRN 08/01/19 [Last Taken Unknown] Beclomethasone Dipropionate [Qvar Redihaler] 10.6 gm INHALATION PRN PRN 08/01/19 [Last Taken Unknown] Diclofenac Sodium [Voltaren] 50 mg PO TID 08/01/19 [Last Taken Unknown] Omeprazole 40 mg PO DAILY 08/01/19 [Last Taken Unknown] albuterol sulfate 90 mcg/actuation aerosol inhaler 2 inh IH Q6H PRN #8.5 g 08/11/19 [Last Taken Unknown] lorazepam 1 mg tablet 1 mg PO TID PRN #90 tab 08/11/19 [Last Taken Unknown] oxycodone 5 mg tablet 5 mg PO BID #60 tab 08/11/19 [Last Taken Unknown] Nicotine [Nicoderm] 21 mg TD Q24H patch.td24 08/16/19 [Last Taken Unknown] furosemide 80 mg tablet 80 mg PO DAILY #30 tab 08/21/19 [Last Taken Unknown] spironolactone 50 mg tablet 50 mg PO DAILY #30 tab 08/21/19 [Last Taken Unknown] - History of Present Illness Narrative: Patient presents once again with a swollen abdomen that is somewhat tender to the touch. Patient is a chronic abuser of alcohol and frequently gets ascites. Timing: getting worse Quality: moderate Activities at Onset: other - Alcohol abuse Modifying Factors - (Worsens): Present: other - More alcohol Associated Symptoms: Present: swelling/mass in abdomen Prior Abdominal Problems: Present: similar symptoms Prior Treatment: Present: recently seen, treated by physician, recently hospitalized Review of Systems - Review of Systems Constitutional: Present: See HPI EYE: Present: no symptoms reported ENT: Present: no symptoms reported Respiratory: Present: no symptoms reported Cardiology: Present: no symptoms reported Gastrointestinal/Abdominal: Present: See HPI Genitourinary: Present: no symptoms reported Musculoskeletal: Present: no symptoms reported Skin: Present: no symptoms reported Neurological: Present: no symptoms reported Endocrine: Present: no symptoms reported Hematologic/Lymphatic: Present: no symptoms reported Psych: Present: no symptoms reported Medical History (Last Reviewed 09/28/19 @ 16:31 by Florinda Azevedo RN) Alcoholism Anxiety Hypertension Surgical History: Surgical History (Last Reviewed 09/28/19 @ 16:31 by Florinda Azevedo RN) History of History of appendectomy History of cholecystectomy History of shoulder surgery Family History: Family History (Last Reviewed 09/28/19 @ 16:31 by Florinda Azevedo RN) Other No pertinent family history Social History: (Last Reviewed 09/28/19 @ 16:31 by Florinda Azevedo RN) Social History: adopted: No Marital status: household members: friend(s) number of children: 2 current occupational status: unemployed Highest education level completed: some college, no degree Service: No Tobacco: Smoking Status: Current every day smoker Alcohol: alcohol intake: current Substance Use: substance use type: does not use Dietary Habits: caffeine: Yes Physical Exam - Physical Exam General Appearance: Present: wd/wn, alert, no apparent distress, moderate dis tress Head Exam: Present: normal inspection, no evidence of injury Eye Exam: Normal inspection: bilateral, PERRL: bilateral, Scleral icterus: bilateral Ears, Nose, Throat: Present: normal ENT inspection, H, normal pharynx Neck: Present: normal inspection, nontender Respiratory: Present: no respiratory distress, normal breath sounds, no accessory muscle use, chest nontender, lungs clear Cardiovascular/Chest: Present: regular rate, rhythm, no murmur, normal peripheral pulses Gastrointestinal/Abdominal: Present: normal bowel sounds, tenderness - Generalized, distended, hepatomegaly Rectal Exam: Present: deferred Back Exam: Present: normal inspection, normal range of motion Extremity Exam: Present: normal inspection, non-tender, no edema, normal range of motion Neurological Exam: Present: alert, oriented, normal mood/affect Skin Exam: Present: warm/dry, jaundice Lymphatic Exam: Present: no adenopathy Progress - Results and Orders Patient's Lab Results:: I have reviewed the patient's lab results. - Vital Signs Patient's Vital Signs:: I have reviewed the patient's vital signs. Vital Signs: Vital Signs 09/28/19 16:26 09/28/19 16:55 Temperature 37.3 C 37.6 C Pulse Rate 97 96 Respiratory Rate 16 19 Blood Pressure 121/70 130/73 O2 Sat by Pulse Oximetry 97 97 - X-Ray X-Ray #1 X-Ray: abdomen Interpretation: Reviewed by me - CT/Ultrasound CT/Ultrasound Narrative: Limited abdominal ultrasound was reviewed by me - Progress/Reassessment Chief Complaint: Abdominal Pain Progress Note-Subjective: 09/28/19 19:14 Under sterile conditions, ultrasound-guided, 4 L of peritoneal fluid were removed from the abdomen. The fluids were sent over for cell counts, Gram stain, culture, albumin, LDH and total protein. Patient be admitted to an observation bed and we await the peritoneal fluid results. Plan - Plan Plan: Patient be admitted to a medical bed, likely monitored, and Dr. Rangel will admit this Dr. Davis patient. Departure Clinical Impression: Ascites due to alcoholic cirrhosis, SBP (spontaneous bacterial peritonitis) Liver failure Qualifiers: Liver failure chronicity: chronic Hepatic coma status: without hepatic coma Qualified Code(s): K72.10 - Chronic hepatic failure without coma - Departure Disposition: Still a patient Condition: Fair Referrals: Reggie Davis DO [Primary Care Provider] -
[2019-09-28 17:12] LABS: Albumin * 2.2 gm/dl (3.4-5.0); Anion Gap 16.6 mmol/L (6.8-13.8); BUN/Creatinine Ratio 5.3 (9.0-21.6); Bilirubin, Total 10.9 mg/dL (0.0-1.1); Ca. Corrected For Albumin 8.5 mg/dL (8.4-10.2); Calcium * 7.4 mg/dL (7.9-10.9); Carbon Dioxide 25.5 mmol/L (24-32.6); INR 1.86 INR (0.92-1.08); Partial Thrombolplastin Time 34.3 Seconds (24-32); Potassium 3.1 mmol/L (3.4-4.6); Total Protein 7.6 gm/dL (6.2-8.2)
[2019-09-28 17:28] LABS: Urine Appearance Slightly Cloudy (CLEAR); Urine Color Amber
[2019-09-28 17:29] LABS: Urine Bilirubin 6 mg/dl (NEGATIVE)
[2019-09-28 17:30] LABS: Urine Blood 5 /ul (NEGATIVE); Urine Ketone 5 mg/dL (NEGATIVE); Urine Nitrite Negative (NEGATIVE); Urine Protein 30 mg/dL (NEGATIVE); Urine RBC 0-5 /hpf (0-5); Urine Specific Gravity 1.025 SP.GR. (1.005-1.010); Urine Urobilinogen 8 EU/dl (NORMAL); Urine WBC 0-5 /hpf (0-5); Urine pH 6.5 pH (5.0-7.0)
[2019-09-28 17:31] LABS: Urine Bacteria None Seen
[2019-09-28] MEDS ORDERED: LIDOCAINE HCL 50 ML VIAL ONE (18:31)
[2019-09-28] MEDS ORDERED: CEFOTAXIME SODIUM 2,000 MG in DEXTROSE 5 % IN WATER 100 ML IV SCH ×2 (19:15)
[2019-09-28 19:38] LABS: Body Fluid WBC 172 /uL (0-1000)
[2019-09-28] MEDS ORDERED: NICOTINE 21 MG PATC TD SCH (19:45)
[2019-09-28 20:24] LABS: Body Fluid Appearance SLIGHTLY CLOUDY (CLEAR)
[2019-09-28 20:25] LABS: Body Fluid Color YELLOW (COLORLESS)
[2019-09-28] MEDS ORDERED: POTASSIUM CHLORIDE 20 MEQ TABLET.SA PO ONE (21:31)
[2019-09-28] MEDS ORDERED: chlordiazePOXIDE HCL 25 MG CAPSULE PO PRN (21:32)
[2019-09-28] MEDS ORDERED: BUDESONIDE 0.5 MG/2 ML VIAL.NEB IH PRN (21:35)
[2019-09-28] MEDS ORDERED: ALBUTEROL SULFATE 200 PUFF INHALER IH PRN (21:35)
[2019-09-28] MEDS ORDERED: ALBUTEROL SULFATE/IPRATROPIUM 3 ML NEBU IH PRN (21:37)
[2019-09-28] MEDS ORDERED: ACETAMINOPHEN 325 MG TABLET PO PRN (21:56)
--- NOTE | 2019-09-28 22:22 | HP ---
Chief Complaint - Chief Complaint Date of Service: 09/28/19 Time of Service: 21:58 Chief Complaint: My belly has been growing bigger then I had abdominal pain this morning. History of Present Illness: 44-year-old female with past medical history of chronic alcoholism, macrocytic anemia, anxiety disorder, depression, COPD, hypertension, nicotine dependence, liver cirrhosis, was evaluated in the ER due to worsening tension ascites accompanied by abdominal pain. Patient reports that over the past several days her belly has been growing bigger and got so bad that she could not get up from the couch this morning, patient also reports that she developed generalized abdominal pain that eventually became unbearable. She has a history of ascites but said that it has never been this bad. Upon questioning patient admits that she has been consuming alcohol in fact her last ingestion of alcohol was yesterday although the patient was found to have elevated alcohol levels on ER labs. She also admits that she has not been compliant with her routine meds, specifically her furosemide and her spironolactone. She thinks that the last time she took them was 2 days ago but is not sure. Patient denies any fever or chills but says she is not feeling herself. She denies ever seeing a deputy court but says that she was diagnosed with liver cirrhosis by her PCP. Patient also smokes cigarettes on a daily basis but denies any drug use. She also reports marked hematuria that she noticed this morning. She is currently living with her son who is not present at the moment. Medical History (Last Updated 09/28/19 @ 19:54 by Elyssa Moreira RN) COPD (chronic obstructive pulmonary disease) Alcoholism Anxiety Hypertension Surgical History: Surgical History (Last Reviewed 09/28/19 @ 19:55 by Elyssa Moreira RN) History of History of appendectomy History of cholecystectomy History of shoulder surgery Family History: Family History (Last Updated 09/28/19 @ 19:56 by Elyssa Moreira RN) Father Throat cancer Mother Myocardial infarction Social History: (Last Reviewed 09/28/19 @ 19:56 by Elyssa Moreira RN) Social History: adopted: No Marital status: household members: friend(s) number of children: 2 current occupational status: unemployed Highest education level completed: some college, no degree Service: No Tobacco: Smoking Status: Current every day smoker Alcohol: alcohol intake: current Substance Use: substance use type: does not use Dietary Habits: caffeine: Yes Peds Patient Hx - Developmental: No Pertinent Hx Peds Patient Hx - Medical: No Pertinent Hx Peds Patient Hx - Cardiac/Respiratory: No Pertinent Hx Peds Patient Hx - Surgical: No Surgical History Patient History - Cancer: No Hx of Cancer Review Of Systems (GEN) - Review of Systems Generalized/Overall Review: Present: Weakness, Fatigue EENTM: Present: No Symptoms Reported Respiratory: Present: Cough, Shortness of Breath Cardiac: Present: No Symptoms Reported Abdominal: Present: Abdominal Pain, Other - Ascites Genitourinary: Present: Hematuria Musculoskeletal: Present: No Symptoms Reported Neurological: Present: No Symptoms Reported Skin: Present: Change in Color - Jaundiced skin Endocrine: Present: No Symptoms Reported Immunizations: IMMUNIZATION HX Immunizations Up to Date Yes History of Influenza Vaccine Yes Hx Pneumococcal Vaccination Yes Allergies/Adverse Reactions: Allergies Allergy/AdvReac Type Severity Reaction Status Date / Time No Known Allergies Allergy Verified 09/28/19 16:31 Home Medications: HOME MEDICATIONS Beclomethasone Dipropionate [Qvar Redihaler] 10.6 gm INHALATION PRN PRN 08/01/19 [Last Taken Unknown] albuterol sulfate 90 mcg/actuation aerosol inhaler 2 inh IH Q6H PRN #8.5 g 08/11/19 [Last Taken Unknown] furosemide 80 mg tablet 80 mg PO DAILY #30 tab 08/21/19 [Last Taken Unknown] spironolactone 50 mg tablet 50 mg PO DAILY #30 tab 08/21/19 [Last Taken Unknown] Exam - Exam Vital Signs: Vital Signs - Last Taken Temp 37.6 C 09/28/19 16:55 Pulse 96 09/28/19 19:40 Resp 18 09/28/19 19:40 BP 120/57 09/28/19 19:40 Pulse Ox 97 09/28/19 19:40 Constitutional: Present: Alert, Oriented x3, Cooperative, Well developed, No distress, Middle aged ENT Exam: Present: normal ENT inspection, hearing grossly normal, pharynx normal, TMs normal Eye Exam: bilateral eye: normal inspection, PERRL, EOMI Neck: Present: non-tender, full range of motion, supple, normal inspection, trachea midline Back Exam: Present: normal inspection, no CVA tenderness, no vertebral tenderness Breasts: Present: Exam deferred, Nontender Respiratory: Present: no respiratory distress, wheezing Cardiovascular/Chest: Present: normal peripheral pulses, regular rate, rhythm, no chest tenderness, no gallop, no JVD, no murmur, no rub Peripheral Pulses: carotid (R): 3+, carotid (L): 3+, femoral (R): 3+, femoral (L): 3+, dorsalis-pedis (R): 3+, dorsalis-pedis (L): 3+ Abdomen: Present: soft, no masses, tender, other - Marked fluid shift, distended /Rectal: Present: Exam deferred Extremity: Present: normal range of motion, non-tender, normal inspection, no pedal edema, no calf tenderness, normal capillary refill Skin Exam: Present: normal color, warm/dry, no cyanosis, jaundice Lymphatic: Present: no adenopathy Neurologic: Present: bulkhead carpenter II-XII nml as tested, normal cerebellar test, no rodriguez r/sensory deficits, alert, normal mood/affect, oriented x 3 Appearance: Present: appropriate insight, neat, disheveled Eye contact: Present: cooperative, good eye contact, normal speech Thoughts: Present: normal thought pattern, no apparent hallucination Diagnostic Studies: Abnormal Lab Results 09/28/19 09/28/19 09/28/19 Range/Units 16:48 16:48 16:48 RBC 2.70 L (4.2-5.4) M/mm3 Hgb 11.2 L (12.5-16.0) gm/dL Hct 32.1 L (37.0-47.0) % MCV 118.9 H (78-100) fl MCH 41.5 H (27-31) pg RDW 14.7 H (11.5-14.0) % Plt Count 93 L (150-450) K/mm3 Immature Gran % (Auto) 0.50 H (0.001-0.429) % Lymphocytes % 18.0 L (20-51) % Monocytes % 11.6 H (0.0-9) % Lymphocytes # 1.16 L (1.5-3.5) k/mm3 PT 18.0 H (9.1-10.7) Seconds INR (Anticoag Therapy) 1.86 H (0.92-1.08) INR PTT (Jeb) 34.3 H (24-32) Seconds Potassium 3.1 L (3.4-4.6) mmol/L Anion Gap 16.6 H (6.8-13.8) mmol/L BUN/Creatinine Ratio 5.3 L (9.0-21.6) Random Glucose 125 H (70-110) mg/dL Lactic Acid, Venous (0.4-2.0) mmol/L Calcium 7.4 L (7.9-10.9) mg/dL Total Bilirubin 10.9 H (0.0-1.1) mg/dL AST 125 H (0-48) U/L C-Reactive Prot, Quant (0.0-0.9) mg/dL Albumin 2.2 L (3.4-5.0) gm/dl Urine Protein (NEGATIVE) mg/dL Urine Glucose (UA) (NEGATIVE) mg/dL Urine Blood (NEGATIVE) /ul Urine Bilirubin (NEGATIVE) mg/dl Urine Ictotest (NEGATIVE) Urine Urobilinogen (NORMAL) EU/dl Fluid RBC (0-1000) /uL Ethyl Alcohol (0.0-10.0) mg/dL 09/28/19 09/28/19 09/28/19 Range/Units 16:48 17:19 19:00 RBC (4.2-5.4) M/mm3 Hgb (12.5-16.0) gm/dL Hct (37.0-47.0) % MCV (78-100) fl MCH (27-31) pg RDW (11.5-14.0) % Plt Count (150-450) K/mm3 Immature Gran % (Auto) (0.001-0.429) % Lymphocytes % (20-51) % Monocytes % (0.0-9) % Lymphocytes # (1.5-3.5) k/mm3 PT (9.1-10.7) Seconds INR (Anticoag Therapy) (0.92-1.08) INR PTT (Jeb) (24-32) Seconds Potassium (3.4-4.6) mmol/L Anion Gap (6.8-13.8) mmol/L BUN/Creatinine Ratio (9.0-21.6) Random Glucose (70-110) mg/dL Lactic Acid, Venous (0.4-2.0) mmol/L Calcium (7.9-10.9) mg/dL Total Bilirubin (0.0-1.1) mg/dL AST (0-48) U/L C-Reactive Prot, Quant (0.0-0.9) mg/dL Albumin (3.4-5.0) gm/dl Urine Protein 30 H (NEGATIVE) mg/dL Urine Glucose (UA) 100 H (NEGATIVE) mg/dL Urine Blood 5 H (NEGATIVE) /ul Urine Bilirubin 6 H (NEGATIVE) mg/dl Urine Ictotest Positive H (NEGATIVE) Urine Urobilinogen 8 H (NORMAL) EU/dl Fluid RBC Greater than 1000.0 H (0-1000) /uL Ethyl Alcohol 116.0 H (0.0-10.0) mg/dL 09/28/19 09/28/19 Range/Units 19:10 19:10 RBC (4.2-5.4) M/mm3 Hgb (12.5-16.0) gm/dL Hct (37.0-47.0) % MCV (78-100) fl MCH (27-31) pg RDW (11.5-14.0) % Plt Count (150-450) K/mm3 Immature Gran % (Auto) (0.001-0.429) % Lymphocytes % (20-51) % Monocytes % (0.0-9) % Lymphocytes # (1.5-3.5) k/mm3 PT (9.1-10.7) Seconds INR (Anticoag Therapy) (0.92-1.08) INR PTT (Jeb) (24-32) Seconds Potassium (3.4-4.6) mmol/L Anion Gap (6.8-13.8) mmol/L BUN/Creatinine Ratio (9.0-21.6) Random Glucose (70-110) mg/dL Lactic Acid, Venous 4.4 H* (0.4-2.0) mmol/L Calcium (7.9-10.9) mg/dL Total Bilirubin (0.0-1.1) mg/dL AST (0-48) U/L C-Reactive Prot, Quant 3.6 H (0.0-0.9) mg/dL Albumin (3.4-5.0) gm/dl Urine Protein (NEGATIVE) mg/dL Urine Glucose (UA) (NEGATIVE) mg/dL Urine Blood (NEGATIVE) /ul Urine Bilirubin (NEGATIVE) mg/dl Urine Ictotest (NEGATIVE) Urine Urobilinogen (NORMAL) EU/dl Fluid RBC (0-1000) /uL Ethyl Alcohol (0.0-10.0) mg/dL Microbiology 09/28/19 18:59 Gram Stain - Final Peritoneal Fluid Laboratory Results WBC 6.4 K/mm3 (4.0-10.5) 09/28/19 16:48 RBC 2.70 M/mm3 (4.2-5.4) L 09/28/19 16:48 Hgb 11.2 gm/dL (12.5-16.0) L 09/28/19 16:48 Hct 32.1 % (37.0-47.0) L 09/28/19 16:48 MCV 118.9 fl (78-100) H 09/28/19 16:48 MCH 41.5 pg (27-31) H 09/28/19 16:48 MCHC 34.9 g/dl (32-36) 09/28/19 16:48 RDW 14.7 % (11.5-14.0) H 09/28/19 16:48 Plt Count 93 K/mm3 (150-450) L 09/28/19 16:48 MPV 11.7 fl (8-12.5) 09/28/19 16:48 Immature Gran % (Auto) 0.50 % (0.001-0.429) H 09/28/19 16:48 Immature Gran # (Auto) 0.03 K/mm3 (0.000-0.0310) 09/28/19 16:48 Neutrophils % 69.3 % (42-75.0) 09/28/19 16:48 Lymphocytes % 18.0 % (20-51) L 09/28/19 16:48 Monocytes % 11.6 % (0.0-9) H 09/28/19 16:48 Eosinophils % 0.3 % (0.0-3.0) 09/28/19 16:48 Basophils % 0.3 % (0.0-1.0) 09/28/19 16:48 Nucleated RBC % 0.0 k/mm3 (0-1) 09/28/19 16:48 Neutrophils # 4.5 K/mm3 (1.3-6.0) 09/28/19 16:48 Lymphocytes # 1.16 k/mm3 (1.5-3.5) L 09/28/19 16:48 Monocytes # 0.8 k/mm3 (0.0-1.0) 09/28/19 16:48 Eosinophils # 0.0 k/mm3 (0.0-0.7) 09/28/19 16:48 Absolute Basophils 0.0 k/mm3 (0.0-0.1) 09/28/19 16:48 PT 18.0 Seconds (9.1-10.7) H 09/28/19 16:48 INR (Anticoag Therapy) 1.86 INR (0.92-1.08) H 09/28/19 16:48 PTT (Bates) 34.3 Seconds (24-32) H 09/28/19 16:48 Sodium 136 mmol/L (132-142) 09/28/19 16:48 Plasma Sodium 136 mmol/L (130-142) 09/28/19 16:48 Potassium 3.1 mmol/L (3.4-4.6) L 09/28/19 16:48 Chloride 97 mmol/L (97-106) 09/28/19 16:48 Carbon Dioxide 25.5 mmol/L (24-32.6) 09/28/19 16:48 Anion Gap 16.6 mmol/L (6.8-13.8) H 09/28/19 16:48 BUN 3 mg/dL (3-23) 09/28/19 16:48 Creatinine 0.57 mg/dL (0.4-1.4) 09/28/19 16:48 Est GFR (Non-Af Amer) 121 mL/min (60-130) D 09/28/19 16:48 BUN/Creatinine Ratio 5.3 (9.0-21.6) L 09/28/19 16:48 Random Glucose 125 mg/dL (70-110) H 09/28/19 16:48 Lactic Acid, Venous 4.4 mmol/L (0.4-2.0) H* 09/28/19 19:10 Calcium 7.4 mg/dL (7.9-10.9) L 09/28/19 16:48 Calcium Adj for Albumin 8.5 mg/dL (8.4-10.2) 09/28/19 16:48 Magnesium 1.5 mg/dL (1.2-2.8) 09/28/19 16:48 Total Bilirubin 10.9 mg/dL (0.0-1.1) H 09/28/19 16:48 AST 125 U/L (0-48) H 09/28/19 16:48 ALT 41 U/L (19-67) 09/28/19 16:48 Alkaline Phosphatase 99 U/L (50-170) 09/28/19 16:48 Ammonia 32.0 mcmol/L (11-35) 09/28/19 16:48 C-Reactive Prot, Quant 3.6 mg/dL (0.0-0.9) H 09/28/19 19:10 Total Protein 7.6 gm/dL (6.2-8.2) 09/28/19 16:48 Albumin 2.2 gm/dl (3.4-5.0) L 09/28/19 16:48 Amylase 38 U/L (25-115) 09/28/19 16:48 Lipase 248 U/L (73-393) 09/28/19 16:48 Urine Color Kary 09/28/19 17:19 Urine Appearance Slightly cloudy (CLEAR) 09/28/19 17:19 Urine pH 6.5 pH (5.0-7.0) 09/28/19 17:19 Ur Specific Ducor 1.025 SP.GR. (1.005-1.010) 09/28/19 17:19 Urine Protein 30 mg/dL (NEGATIVE) H 09/28/19 17:19 Urine Glucose (UA) 100 mg/dL (NEGATIVE) H 09/28/19 17:19 Urine Ketones 5 mg/dL (NEGATIVE) 09/28/19 17:19 Urine Blood 5 /ul (NEGATIVE) H 09/28/19 17:19 Urine Nitrate Negative (NEGATIVE) 09/28/19 17:19 Urine Bilirubin 6 mg/dl (NEGATIVE) H 09/28/19 17:19 Urine Ictotest Positive (NEGATIVE) H 09/28/19 17:19 Prot Sulfosalicylic Acd 1+ mg/dL (0) 09/28/19 17:19 Urine Urobilinogen 8 EU/dl (NORMAL) H 09/28/19 17:19 Ur Leukocyte Esterase Negative /ul (NEGATIVE) 09/28/19 17:19 Urine RBC 0-5 /hpf (0-5) 09/28/19 17:19 Urine WBC 0-5 /hpf (0-5) 09/28/19 17:19 Ur Epithelial Cells 0-5 /hpf (0-5) 09/28/19 17:19 Urine Bacteria None seen (NONE) 09/28/19 17:19 Urine Culture Comments No culture indicated 09/28/19 17:19 Fluid Color Yellow (COLORLESS) 09/28/19 19:00 Fluid Appearance Slightly cloudy (CLEAR) 09/28/19 19:00 Fluid WBC 172 /uL (0-1000) 09/28/19 19:00 Fluid RBC Greater than 1000.0 /uL (0-1000) H 09/28/19 19:00 Fluid Diff Comment See note 09/28/19 19:00 Fluid Neutrophils 10 % 09/28/19 19:00 Fluid Lymphocytes 90 % 09/28/19 19:00 Peritoneal Albumin 0.6 gm/dL 09/28/19 19:00 Peritoneal LDH 54 U/L 09/28/19 19:00 Ethyl Alcohol 116.0 mg/dL (0.0-10.0) H 09/28/19 16:48 Miscellaneous Cytology Spec. sent to path. 09/28/19 19:00 Assessment/Plan - Narrative Narrative: Patient was evaluated and medical chart was reviewed and decision to admit to the inpatient [facility] floor was made. She was admitted with a diagnosis of tension ascites, spontaneous bacterial peritonitis, liver cirrhosis, hypoalbuminemia, and macrocytic anemia. Patient underwent a paracentesis to address her tension ascites while in the ER, 4 L of fluid was removed. She is ordered to receive 2 bags of albumin replacements. Cultures were sent to pathology lab. She was also started on IV antibiotics. We will treat her with aggressive diuresis with furosemide and spironolactone which she normally takes daily but has not done so in several days. She was also covered for alcohol withdrawal and chlordiazepoxide was ordered on a as needed basis. She complains of abdominal pain and soreness where the paracentesis was performed, acetaminophen was ordered to be used on a as needed basis. Ammonia levels have been ordered as well as labs for tomorrow morning. Patient was found to have macrocytic anemia therefore folate and vitamin B12 levels were ordered. - Assessment/Plan (1) Fluid retention Problem: Acute (2) Alcohol intoxication Problem: Acute (3) Thrombocytopenia Problem: Chronic (4) Lactic acidosis Problem: Acute (5) Elevated liver function tests Problem: Acute (6) Liver cirrhosis, alcoholic Problem: Chronic Qualifiers: Ascites presence: with ascites Qualified Code(s): K70.31 - Alcoholic cirrhosis of liver with ascites (7) Non-compliant patient Problem: Acute (8) Nicotine dependence Problem: Chronic Qualifiers: Nicotine product type: cigarettes (9) Alcoholism /alcohol abuse Problem: Acute (10) Ascites due to alcoholic cirrhosis Problem: Acute (11) S/P abdominal paracentesis Problem: Acute (12) Hypoalbuminemia Problem: Acute
[2019-09-28] MEDS ORDERED: ONDANSETRON HCL/PF 2 MG/ML VIAL IV PRN (22:38)
[2019-09-28] MEDS: ALBUMIN HUMAN 12.5 G/50 ML BTL IV SCH (23:17)
[2019-09-28] MEDS ORDERED: POTASSIUM CHLORIDE 20 MEQ TABLET.SA ONE (23:45)
[2019-09-29] MEDS: ALBUMIN HUMAN 12.5 G/50 ML BTL IV SCH (00:45)
[2019-09-29] MEDS: LACTULOSE 10 G/15 ML SYRUP PO SCH ×2 (01:04→09:43)
[2019-09-29] MEDS ORDERED: MEPERIDINE HCL/PF 50 MG/ML SYRG IV PRN (01:37)
[2019-09-29] MEDS: FAMOTIDINE 20 MG in DEXTROSE 5 % IN WATER 100 ML IV SCH ×4 (02:14→11:06)
--- NOTE | 2019-09-29 05:39 | PATH ---
PHYSICIAN: Reggie Davis DO LAB#: [id number] SPECIMEN DATE: 09/29/2019 SPECIMEN: Ascites fluid CLINICAL INFORMATION: Patient is a 44-year-old woman who presented at [facility] emergency department with abdominal pain and enlarging abdomen. Patient has a prior history of chronic alcoholism, macrocytic anemia, anxiety disorder, depression, COPD, hypertension, nicotine dependence, and liver cirrhosis. Patient underwent paracentesis in the ER which yielded 4 L of fluid which is sent for cytology, cell count, culture, albumin and total protein. Albumin gradient serum albumin 2.2 g/dL- peritoneal fluid albumin 0.6 g/dL= 1.6 gm/dl, elevated. Fluid protein 1.8 g/dl/serum protein 7.6 gm/dl= .23 consistent with transudate. GROSS DESCRIPTION: The specimen is received in 4 L suction containers fresh in the laboratory appropriately designated "ascites fluid". The specimen consists of yellow cloudy foamy fluid. An 80 mL aliquot is processed with an equal volume of cytospin fluid and 2 cytospin slides are stained with Pap. A cell block is prepared and submitted for routine processing and paraffin embedding and H&E staining. DIAGNOSIS: PERITONEAL CAVITY, ASCITES FLUID, PARACENTESIS: -BENIGN REACTIVE CHANGES IN AN MODERATE CELLULARITY TRANSUDATE COMMENT: Cytospin's and cell block show abundant proteinaceous debris, some lymphocytes, some mesothelial cells with degenerative changes, some histiocytes, few PMNs and rare RBCs. On the basis of protein and albumin studies studies of ascites fluid, the findings are a transudate with an elevated albumin gradient consistent with the clinical history of liver cirrhosis due to alcohol use. Case preliminary findings are communicated to Dr. Rangel and Dr. Davis on 09/29/2019 and the final report is faxed on 09/30/2019.
[2019-09-29] MEDS ORDERED: ALBUTEROL SULFATE 2.5 MG/0.5 ML VIAL.NEB IH PRN (06:31)
[2019-09-29 06:57] LABS: Folate 1.8 ng/mL (8.6-58.9)
[2019-09-29] MEDS ORDERED: FUROSEMIDE 80 MG TABLET PO SCH (09:00)
[2019-09-29] MEDS ORDERED: FOLIC ACID 1 MG TABLET PO SCH (09:00)
[2019-09-29] MEDS ORDERED: BUDESONIDE 0.5 MG/2 ML VIAL.NEB IH SCH (09:00)
[2019-09-29] MEDS ORDERED: SPIRONOLACTONE 25 MG TABLET PO SCH (09:00)
--- NOTE | 2019-09-29 12:30 | DS ---
(1) Ascites due to alcoholic cirrhosis Problem: Acute (2) Alcoholism /alcohol abuse Problem: Acute (3) Hypokalemia Problem: Acute Date of Discharge:: 09/29/19 Description of Stay: Lesly was admitted to observation after seen in the ER with abdominal pain secondary to ascites from alcoholic cirrhosis. She had a paracentesis performed in the ER and had 4L of ascites removed. There was no evidence of bacterial peritonitis on ascites fluid. She was given antibiotics in the ER initially but these were not continued in the hospital due to lacking evidence of infection. Lesly reported she had not been taking her diuretics so it was stressed on her the importance of taking her daily diuretics and to not drink. Medications will be refilled. She was given a dose of potassium to replenish her hypokalemia. She will follow up in a week. Procedures Performed: see notes below List Procedures: 09/28/19 Paracentesis in the ER Results and Findings: Pending Mircobiology Results 09/28/19 19:00 Peritoneal Fluid Body Fluid Culture - Preliminary No Growth Lab Pending Results 09/28/19 16:48: WBC 6.4, RBC 2.70 L, Hgb 11.2 L, Hct 32.1 L, MCV 118.9 H, MCH 41.5 H, MCHC 34.9, RDW 14.7 H, Plt Count 93 L, MPV 11.7, Immature Gran % (Auto) 0.50 H, Immature Gran # (Auto) 0.03, Neutrophils % 69.3, Lymphocytes % 18.0 L, Monocytes % 11.6 H, Eosinophils % 0.3, Basophils % 0.3, Nucleated RBC % 0.0, Neutrophils # 4.5, Lymphocytes # 1.16 L, Monocytes # 0.8, Eosinophils # 0.0, Absolute Basophils 0.0 09/28/19 16:48: Sodium 136, Plasma Sodium 136, Potassium 3.1 L, Chloride 97, Carbon Dioxide 25.5, Anion Gap 16.6 H, BUN 3, Creatinine 0.57, Est GFR (Non-Af Amer) 121 D, BUN/Creatinine Ratio 5.3 L, Random Glucose 125 H, Calcium 7.4 L, Calcium Adj for Albumin 8.5, Total Bilirubin 10.9 H, AST 125 H, ALT 41, Alkaline Phosphatase 99, Total Protein 7.6, Albumin 2.2 L, Amylase 38, Lipase 248 12/15/19 16:48: PT 18.0 H, INR (Anticoag Therapy) 1.86 H, PTT (Jeb) 34.3 H 09/28/19 16:48: Magnesium 1.5 09/28/19 16:48: Ethyl Alcohol 116.0 H 09/28/19 16:48: Ammonia 32.0 09/28/19 17:19: Urine Color Kary, Urine Appearance Slightly cloudy, Urine pH 6.5, Ur Specific [place] 1.025, Urine Protein 30 H, Urine Glucose (UA) 100 H, Urine Ketones 5, Urine Blood 5 H, Urine Nitrate Negative, Urine Bilirubin 6 H, Urine Ictotest Positive H, Prot Sulfosalicylic Acd 1+, Urine Urobilinogen 8 H, Ur Leukocyte Esterase Negative, Urine RBC 0-5, Urine WBC 0-5, Ur Epithelial Cells 0-5, Urine Bacteria None seen, Urine Culture Comments No culture indicated 09/28/19 19:00: Fluid Color Yellow, Fluid Appearance Slightly cloudy, Fluid WBC 172, Fluid RBC Greater than 1000.0 H, Fluid Diff Comment See note, Fluid Neutrophils 10, Fluid Lymphocytes 40, Fluid Monocytes 50 09/28/19 19:00: Peritoneal Tot Protein 1.8, Peritoneal Albumin 0.6, Peritoneal LDH 54 09/28/19 19:00: Miscellaneous Cytology Spec. sent to path. 09/28/19 19:10: C-Reactive Prot, Quant 3.6 H 09/28/19 19:10: Lactic Acid, Venous 4.4 H* 09/28/19 19:10: Vitamin B12 1547 H, Folate 1.8 L 09/28/19 21:50: Lactic Acid, Venous 3.9 H* 09/28/19 22:45: Ammonia 45.0 H Discharge Location: Home Disposition: Home self-care Condition: Fair Discharge Activity: Activity as tolerated Discharge Diet: Low salt Referrals: Reggie Davis DO [Primary Care Provider] - One Week Problem Oriented Discharge Instructions to Patient/Family: Ascites, Alcoholic Liver Disease, [id number] Prescriptions (Any new or edited meds): Folic Acid 1 mg PO DAILY #30 tab Transmission Status: Pending to [place] Furosemide [Lasix] 80 mg PO DAILY #30 tab Transmission Status: Pending to [place] chlordiazePOXIDE HCL [Librium] 50 mg PO Q8H PRN #90 cap PRN Reason: Alcohol Withdrawal Transmission Status: Received by [place] Spironolactone 50 mg PO DAILY #30 tab Transmission Status: Pending to [place] Complete Home Medications List: Complete Home Medication List: Beclomethasone Dipropionate [Qvar Redihaler] 2 puff INHALATION BID 08/01/19 albuterol sulfate 90 mcg/actuation aerosol inhaler 2 inh IH Q6H PRN #8.5 g 08/11/19 Folic Acid 1 mg PO DAILY #30 tab 09/29/19 Furosemide [Lasix] 80 mg PO DAILY #30 tab 09/29/19 Spironolactone 50 mg PO DAILY #30 tab 09/29/19 chlordiazePOXIDE HCL [Librium] 50 mg PO Q8H PRN #90 cap 09/29/19
[2019-09-29 14:38] VITALS: BP 129/67
== END 2019-09-29 14:30 | disposition home or self-care (01) ==
LOC: MS 16:24 → ER 16:24 → MS 19:35
PROVIDERS: ADMIT Family Medicine; ATTEND Family Medicine
CPT/HCPCS: 36415; 74019; 74020; 76705; 80053; 80320; 81001; 82042; 82140; 82150; 82607; 82746; 83605; 83615; 83690; 83735; 84155; 84157; 85025; 85610; 85730; 86140; 87070; 87075; 87205; 88108; 88305; 89051; 96365; 96366; 96375; 99285; G0378; G0481; J2405

== ENCOUNTER 2019-10-05 18:03 | Inpatient (IN) ==
--- NOTE | 2019-10-05 18:18 | ERNOTE ---
Abdominal HPI - Narrative Date of Service: 10/05/19 - General Chief Complaint: General Assessment Time Seen by Provider: 10/05/19 18:03 Source: patient Exam Limitations: no limitations - Immun/Allergies/Home Medications Immunizatons: IMMUNIZATION HX Immunizations Up to Date Yes History of Influenza Vaccine Yes Hx Pneumococcal Vaccination Yes Allergies/Adverse Reactions: Allergies No Known Allergies Allergy (Verified 10/05/19 20:25) Home Medications: HOME MEDICATIONS Beclomethasone Dipropionate [Qvar Redihaler] 2 puff INHALATION BID 08/01/19 [Last Taken Unknown] albuterol sulfate 90 mcg/actuation aerosol inhaler 2 inh IH Q6H PRN #8.5 g 08/11/19 [Last Taken Unknown] Folic Acid 1 mg PO DAILY #30 tab 09/29/19 [Last Taken Unknown] Furosemide [Lasix] 80 mg PO DAILY #30 tab 09/29/19 [Last Taken Unknown] Spironolactone 50 mg PO DAILY #30 tab 09/29/19 [Last Taken Unknown] chlordiazePOXIDE HCL [Librium] 50 mg PO Q8H PRN #90 cap 09/29/19 [Last Taken Unknown] - Pain Score Pain Score #1 Pain Score: 8 Abdominal Pain Onset Location: generalized abdomen Pain Radiation: chest - History of Present Illness Narrative: The patient is a 44 year old female who presents for chest pain, dyspnea and abdominal pain which has been present for 2-3 days. There are associated symptoms of nausea and productive cough. The patient reports pain to generalized abdomen and chest, 8/10. There are no alleviating factors. There are aggravating factors of activity and position. Previous treatments have included: none. The past medical history includes: HTN, anxiety, COPD, alcohol abuse and liver failure. The social history is positive for current tobacco and alcohol use. The patient has had no known ill contacts. Patient presents via [facility] after patient called due to progressive abdominal pain and chest discomfort. Patient was seen in ER last week, 09/28/19, had paracentesis performed with removal of approximately 4 liters and patient was admitted. Patient discharged on 09/29/19. Review of Systems - Review of Systems Constitutional: Present: weakness, fatigue. Absent: fever, chills EYE: Present: no symptoms reported ENT: Present: no symptoms reported. Absent: ear pain, nasal drainage, sore throat Respiratory: Present: shortness of breath, cough Cardiology: Present: chest pain Gastrointestinal/Abdominal: Present: nausea, abdominal pain. Absent: vomiting, diarrhea Genitourinary: Present: decreased urinary output. Absent: dysuria Musculoskeletal: Present: no symptoms reported Skin: Present: no symptoms reported Neurological: Present: weakness All Other Systems: All systems neg except as marked Medical History (Last Reviewed 10/05/19 @ 18:15 by GUERRERO Lowery) Alcoholism Anxiety COPD (chronic obstructive pulmonary disease) Hypertension Surgical History: Surgical History (Last Reviewed 10/05/19 @ 18:15 by GUERRERO Lowery) History of History of appendectomy History of cholecystectomy History of shoulder surgery Family History: Family History (Last Reviewed 10/05/19 @ 18:15 by GUERRERO Lowery) Father Throat cancer Mother Myocardial infarction Social History: (Last Reviewed 10/05/19 @ 18:15 by GUERRERO Lowery) Social History: adopted: No Marital status: household members: friend(s) number of children: 2 current occupational status: unemployed Highest education level completed: some college, no degree Service: No Tobacco: Smoking Status: Current every day smoker Alcohol: alcohol intake: current Substance Use: substance use type: does not use Dietary Habits: caffeine: Yes Physical Exam - Physical Exam General Appearance: Present: alert, moderate distress, sleeping/easy to arouse Head Exam: Present: normal inspection Eye Exam: Scleral icterus: bilateral Neck: Present: normal inspection Respiratory: Present: accessory muscle use, decreased breath sounds, wheezing Cardiovascular/Chest: Present: regular rate, rhythm, no murmur Gastrointestinal/Abdominal: Present: tenderness - diffuse, distended, hepatomegaly Extremity Exam: Present: pedal edema - 1+ pitting bilateral Neurological Exam: Present: alert, oriented, normal mood/affect Skin Exam: Present: jaundice Progress - Date and Time Seen: Date and Time: 10/05/19 19:02 Message left for with floor staff as provider in with another patient. 10/05/19 19:23 Discussed case with , will admit observation for liver failure, ascites, hypokalemia and hepatic encephalopathy. Discussed with patient worsening lab values as well as progression of disease. Patient was cautioned that due to her lifestyle choices that she should seriously consider before reaching irreplaceable liver failure, which may have been reached, to make changes or decisions of life care. Patient verbalized understanding. Patient requesting I give care update to her aunt Teresa who lives in [place]. Discussed with patient to admit, agrees to plan of care. 10/05/19 19:36 present to assess patient. - Results and Orders Patient's Lab Results:: I have reviewed the patient's lab results. Results and Orders: Review of recent path report from previous paracentesis 09/28/19 showing transudate from liver cirrhosis. - Vital Signs Patient's Vital Signs:: I have reviewed the patient's vital signs. - EKG EKG #1 EKG: NSR - rate 85 EKG read: Reviewed by me - X-Ray X-Ray #1 X-Ray: abdomen Interpretation: Reviewed by me X-ray Comments: IMPRESSION: NO ACUTE ABDOMINAL PATHOLOGY IDENTIFIED. Electronically signed by Tj Denton M.D.. X-Ray #2 X-Ray: chest Interpretation: Reviewed by me X-ray Comments: IMPRESSION: RIGHT LOWER LOBE CONSOLIDATION ATELECTASIS VERSUS INFECTIOUS INFILTRATE. CHRONIC CARDIOMEGALY. Electronically signed by Tj Denton M.D.. Reviewed cxr results with , due to normal WBC, patient afebrile and amount of ascites does not feel is pneumonia, do not initiate antibiotic treatment. - Progress/Reassessment Progress:: Re-examined Departure Clinical Impression: Hepatic encephalopathy, Hypokalemia, Ascites due to alcoholic cirrhosis Liver failure Qualifiers: Liver failure chronicity: chronic Hepatic coma status: without hepatic coma Qualified Code(s): K72.10 - Chronic hepatic failure without coma - Departure Disposition: Still a patient Condition: Stable
[2019-10-05 18:23] LABS: Hematocrit 28.3 % (37.0-47.0); Hemoglobin 10.4 gm/dL (12.5-16.0); Mean Corpuscular Hemoglobin 42.3 pg (27-31); Mean Corpuscular Hgb Conc 36.7 g/dl (32-36); Neutrophil # 6.9 K/mm3 (1.3-6.0); Neutrophil % 70.2 % (42-75.0); Platelet Count 104 K/mm3 (150-450); Red Blood Count 2.46 M/mm3 (4.2-5.4); Red Cell Distribution Width 13.4 % (11.5-14.0); White Blood Count 9.8 K/mm3 (4.0-10.5)
[2019-10-05 18:35] LABS: Prothrombin Time (Patient) 19.4 Seconds (9.1-10.7)
[2019-10-05 18:43] LABS: ALT 43 U/L (19-67); AST 128 U/L (0-48); Alkaline Phosphatase * 96 U/L (50-170); Amylase * 52 U/L (25-115); Anion Gap 13.5 mmol/L (6.8-13.8); BNP * 113 pg/mL (5-150); BUN/Creatinine Ratio 12.8 (9.0-21.6); Bilirubin, Total 15.9 mg/dL (0.0-1.1); Blood Urea Nitrogen 11 mg/dL (3-23); Ca. Corrected For Albumin 8.5 mg/dL (8.4-10.2); Calcium * 7.2 mg/dL (7.9-10.9); Carbon Dioxide 28.8 mmol/L (24-32.6); Chloride 83 mmol/L (97-106); Glucose * 134 mg/dL (70-110); Lipase 313 U/L (73-393); Sodium 123 mmol/L (132-142); Troponin I Less than 0.017 ng/mL (0.00-0.10)
[2019-10-05 18:48] LABS: Potassium 2.3 mmol/L (3.4-4.6)
[2019-10-05] MEDS ORDERED: POTASSIUM CHLORIDE 20 MEQ TABLET.SA PO ONE (18:51)
[2019-10-05 19:07] LABS: INR 2.01 INR (0.92-1.08); Partial Thrombolplastin Time 36.6 Seconds (24-32)
--- NOTE | 2019-10-05 19:55 | HP ---
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 Family care provider is Dr. Reggie Davis MD. Patient admitted last weekend discharged on Sunday with similar symptoms. Paracentesis completed path report came back and was unremarkable. On arrival to the ER patient was hypotensive secondary to nitroglycerin administered via en route to the ER by EMS. However blood pressure normalized without the need of fluid resuscitation. Patient's blood alcohol level is 160. Patient evaluated in the ER and is drowsy however she is alert and oriented x3 discussed with patient regards to management, patient is requesting to be full code. Discussed with patient she has end-stage liver disease and her labs continue to deteriorate, she should discuss with family in regards to long-term care. Patient is requesting Suzie, friends at bedside to be next of kin to make decisions in regards to her care if she continues to deteriorate and is unable to communicate her wishes. Medical History (Last Reviewed 10/05/19 @ 18:25 by Marisa Livingston RN) Ascites Alcoholism Anxiety COPD (chronic obstructive pulmonary disease) Hypertension Surgical History: Surgical History (Last Reviewed 10/05/19 @ 18:25 by Marisa Livingston RN) History of History of appendectomy History of cholecystectomy History of shoulder surgery Family History: Family History (Last Reviewed 10/05/19 @ 18:25 by Marisa Livingston RN) Father Throat cancer Mother Myocardial infarction Social History: (Last Reviewed 10/05/19 @ 18:25 by Marisa Livingston RN) Social History: adopted: No Marital status: household members: friend(s) number of children: 2 current occupational status: unemployed Highest education level completed: some college, no degree Service: No Tobacco: Smoking Status: Current every day smoker Alcohol: alcohol intake: current Substance Use: substance use type: does not use Dietary Habits: caffeine: Yes Review Of Systems (GEN) - Review of Systems Generalized/Overall Review: Present: Weakness, Fatigue. Absent: Chills, Fever EENTM: Absent: Blurred Vision Respiratory: Present: Shortness of Breath, Orthopnea. Absent: Wheezing Cardiac: Absent: Chest Pain, Edema Abdominal: Present: Abdominal Pain. Absent: Nausea, Vomiting Neurological: Present: Tremors, Weakness Immunizations: IMMUNIZATION HX Immunizations Up to Date Yes History of Influenza Vaccine Yes Hx Pneumococcal Vaccination Yes Allergies/Adverse Reactions: Allergies Allergy/AdvReac Type Severity Reaction Status Date / Time No Known Allergies Allergy Verified 10/05/19 18:17 Home Medications: HOME MEDICATIONS Beclomethasone Dipropionate [Qvar Redihaler] 2 puff INHALATION BID 08/01/19 [Las t Taken Unknown] albuterol sulfate 90 mcg/actuation aerosol inhaler 2 inh IH Q6H PRN #8.5 g 08/11/19 [Last Taken Unknown] Folic Acid 1 mg PO DAILY #30 tab 09/29/19 [Last Taken Unknown] Furosemide [Lasix] 80 mg PO DAILY #30 tab 09/29/19 [Last Taken Unknown] Spironolactone 50 mg PO DAILY #30 tab 09/29/19 [Last Taken Unknown] chlordiazePOXIDE HCL [Librium] 50 mg PO Q8H PRN #90 cap 09/29/19 [Last Taken Unknown] Exam - Exam Vital Signs: Vital Signs - Last Taken Temp 36.7 C 10/05/19 18:06 Pulse 68 10/05/19 19:46 Resp 18 10/05/19 19:46 BP 96/46 10/05/19 19:46 Pulse Ox 98 10/05/19 19:46 Constitutional: Present: Alert, Oriented x3, Somnolent ENT Exam: Present: hearing grossly normal Eye Exam: bilateral eye: PERRL, EOMI, scleral icterus Respiratory: Present: crackles - LL BL Cardiovascular/Chest: Present: normal peripheral pulses, regular rate, rhythm, no JVD Abdomen: Present: Normal bowel sounds, firm, other - DISTENDED and Heptomegaly Extremity: Present: lower extremity edema Skin Exam: Present: jaundice Neurologic: Present: alert, oriented x 3 Appearance: Present: disheveled Eye contact: Present: belligerent Diagnostic Studies: Abnormal Lab Results 10/05/19 10/05/19 10/05/19 Range/Units 18:17 18:17 18:17 RBC 2.46 L (4.2-5.4) M/mm3 Hgb 10.4 L (12.5-16.0) gm/dL Hct 28.3 L (37.0-47.0) % MCV 115.0 H (78-100) fl MCH 42.3 H (27-31) pg MCHC 36.7 H (32-36) g/dl Plt Count 104 L (150-450) K/mm3 Immature Gran % (Auto) 1.40 H (0.001-0.429) % Immature Gran # (Auto) 0.14 H (0.000-0.0310) K/mm3 Lymphocytes % 13.3 L (20-51) % Monocytes % 14.9 H (0.0-9) % Neutrophils # 6.9 H (1.3-6.0) K/mm3 Lymphocytes # 1.30 L (1.5-3.5) k/mm3 Monocytes # 1.5 H (0.0-1.0) k/mm3 PT 19.4 H (9.1-10.7) Seconds INR (Anticoag Therapy) 2.01 H (0.92-1.08) INR PTT (Corson) 36.6 H (24-32) Seconds Sodium 123 L (132-142) mmol/L Plasma Sodium 124 L (130-142) mmol/L Potassium 2.3 L* D (3.4-4.6) mmol/L Chloride 83 L (97-106) mmol/L Random Glucose 134 H (70-110) mg/dL Lactic Acid, Venous (0.4-2.0) mmol/L Calcium 7.2 L (7.9-10.9) mg/dL Total Bilirubin 15.9 H (0.0-1.1) mg/dL AST 128 H (0-48) U/L Ammonia (11-35) mcmol/L Albumin 2.0 L (3.4-5.0) gm/dl Ethyl Alcohol 162.0 H (0.0-10.0) mg/dL 10/05/19 10/05/19 Range/Units 18:17 18:17 RBC (4.2-5.4) M/mm3 Hgb (12.5-16.0) gm/dL Hct (37.0-47.0) % MCV (78-100) fl MCH (27-31) pg MCHC (32-36) g/dl Plt Count (150-450) K/mm3 Immature Gran % (Auto) (0.001-0.429) % Immature Gran # (Auto) (0.000-0.0310) K/mm3 Lymphocytes % (20-51) % Monocytes % (0.0-9) % Neutrophils # (1.3-6.0) K/mm3 Lymphocytes # (1.5-3.5) k/mm3 Monocytes # (0.0-1.0) k/mm3 PT (9.1-10.7) Seconds INR (Anticoag Therapy) (0.92-1.08) INR PTT (Corson) (24-32) Seconds Sodium (132-142) mmol/L Plasma Sodium (130-142) mmol/L Potassium (3.4-4.6) mmol/L Chloride (97-106) mmol/L Random Glucose (70-110) mg/dL Lactic Acid, Venous 3.7 H* (0.4-2.0) mmol/L Calcium (7.9-10.9) mg/dL Total Bilirubin (0.0-1.1) mg/dL AST (0-48) U/L Ammonia 67.0 H (11-35) mcmol/L Albumin (3.4-5.0) gm/dl Ethyl Alcohol (0.0-10.0) mg/dL Laboratory Results WBC 9.8 K/mm3 (4.0-10.5) 10/05/19 18:17 RBC 2.46 M/mm3 (4.2-5.4) L 10/05/19 18:17 Hgb 10.4 gm/dL (12.5-16.0) L 10/05/19 18:17 Hct 28.3 % (37.0-47.0) L 10/05/19 18:17 MCV 115.0 fl (78-100) H 10/05/19 18:17 MCH 42.3 pg (27-31) H 10/05/19 18:17 MCHC 36.7 g/dl (32-36) H 10/05/19 18:17 RDW 13.4 % (11.5-14.0) 10/05/19 18:17 Plt Count 104 K/mm3 (150-450) L 10/05/19 18:17 MPV 10.0 fl (8-12.5) 10/05/19 18:17 Immature Gran % (Auto) 1.40 % (0.001-0.429) H 10/05/19 18:17 Immature Gran # (Auto) 0.14 K/mm3 (0.000-0.0310) H 10/05/19 18:17 Neutrophils % 70.2 % (42-75.0) 10/05/19 18:17 Lymphocytes % 13.3 % (20-51) L 10/05/19 18:17 Monocytes % 14.9 % (0.0-9) H 10/05/19 18:17 Eosinophils % 0.1 % (0.0-3.0) 10/05/19 18:17 Basophils % 0.1 % (0.0-1.0) 10/05/19 18:17 Nucleated RBC % 0.0 k/mm3 (0-1) 10/05/19 18:17 Neutrophils # 6.9 K/mm3 (1.3-6.0) H 10/05/19 18:17 Lymphocytes # 1.30 k/mm3 (1.5-3.5) L 10/05/19 18:17 Monocytes # 1.5 k/mm3 (0.0-1.0) H 10/05/19 18:17 Eosinophils # 0.0 k/mm3 (0.0-0.7) 10/05/19 18:17 Absolute Basophils 0.0 k/mm3 (0.0-0.1) 10/05/19 18:17 PT 19.4 Seconds (9.1-10.7) H 10/05/19 18:17 INR (Anticoag Therapy) 2.01 INR (0.92-1.08) H 10/05/19 18:17 PTT (Jeb) 36.6 Seconds (24-32) H 10/05/19 18:17 Sodium 123 mmol/L (132-142) L 10/05/19 18:17 Plasma Sodium 124 mmol/L (130-142) L 10/05/19 18:17 Potassium 2.3 mmol/L (3.4-4.6) L* D 10/05/19 18:17 Chloride 83 mmol/L (97-106) L 10/05/19 18:17 Carbon Dioxide 28.8 mmol/L (24-32.6) 10/05/19 18:17 Anion Gap 13.5 mmol/L (6.8-13.8) 10/05/19 18:17 BUN 11 mg/dL (3-23) D 10/05/19 18:17 Creatinine 0.86 mg/dL (0.4-1.4) 10/05/19 18:17 Est GFR (Non-Af Amer) 76 mL/min (60-130) D 10/05/19 18:17 BUN/Creatinine Ratio 12.8 (9.0-21.6) 10/05/19 18:17 Random Glucose 134 mg/dL (70-110) H 10/05/19 18:17 Lactic Acid, Venous 3.7 mmol/L (0.4-2.0) H* 10/05/19 18:17 Calcium 7.2 mg/dL (7.9-10.9) L 10/05/19 18:17 Calcium Adj for Albumin 8.5 mg/dL (8.4-10.2) 10/05/19 18:17 Total Bilirubin 15.9 mg/dL (0.0-1.1) H 10/05/19 18:17 AST 128 U/L (0-48) H 10/05/19 18:17 ALT 43 U/L (19-67) 10/05/19 18:17 Alkaline Phosphatase 96 U/L (50-170) 10/05/19 18:17 Ammonia 67.0 mcmol/L (11-35) H 10/05/19 18:17 Troponin I Less than 0.017 ng/mL (0.00-0.10) 10/05/19 18:17 B-Natriuretic Peptide 113 pg/mL (5-150) 10/05/19 18:17 Total Protein 7.0 gm/dL (6.2-8.2) 10/05/19 18:17 Albumin 2.0 gm/dl (3.4-5.0) L 10/05/19 18:17 Amylase 52 U/L (25-115) 10/05/19 18:17 Lipase 313 U/L (73-393) 10/05/19 18:17 Ethyl Alcohol 162.0 mg/dL (0.0-10.0) H 12/22/19 18:17 Assessment/Plan - Narrative Narrative: Assessment/Plan (1) Ascites due to alcoholic cirrhosis - Paracentesis completed 7 days ago, consistent with Transudative fluid cw Liver cirrhosis - Afebrile, consider therapeutic paracentesis - Continue Lasix (2) Alcohol intoxication - Blood Alcohol level 166 - CIWA Score O - Chlordiazepoxide Q8H PRN for withdrawal symptoms - Banana bag of 500 ml (3) Hepatic Encephalopathy most likely secondary to Increased ammonia level - Continue Lactulose (4) Hypokalemia - Repleted continue to monitor with daily CMP (5) Elevated INR - Most likely due to Liver failure - DVT ppx with SCDs (6) Liver failure - Chronic (8) Hypoalbuminemia - Chronic FEN: Low Salt Diet DVT PPX: SCD's CODE STATUS: FULL CODE Disposition: - Recommend Hospice Care for patient - Assessment/Plan (1) Ascites due to alcoholic cirrhosis Problem: Chronic (2) Alcohol intoxication Problem: Acute (3) Increased ammonia level Problem: Acute (4) Hypokalemia Problem: Acute (5) Hepatic encephalopathy Problem: Acute (6) Liver failure Problem: Chronic Qualifiers: Liver failure chronicity: chronic Hepatic coma status: without hepatic coma Qualified Code(s): K72.10 - Chronic hepatic failure without coma (7) Alcoholism /alcohol abuse Problem: Chronic (8) Hypoalbuminemia Problem: Chronic
[2019-10-05] MEDS ORDERED: ALBUTEROL SULFATE 200 PUFF INHALER IH PRN (20:18)
[2019-10-05 20:59] LABS: Urine Bilirubin 6 mg/dl (NEGATIVE); Urine Blood 25 /ul (NEGATIVE); Urine Ketone 5 mg/dL (NEGATIVE); Urine Nitrite Negative (NEGATIVE); Urine Protein Negative (NEGATIVE); Urine Urobilinogen 4 EU/dl (NORMAL); Urine pH 5.5 pH (5.0-7.0)
[2019-10-05] MEDS: LACTULOSE 10 G/15 ML SYRUP PO SCH (21:08)
[2019-10-05 21:12] LABS: Urine Amorphous Sediment Moderate - 2+ (NONE-FEW); Urine Appearance Slightly Cloudy (CLEAR); Urine Bacteria 2+; Urine Color Orange; Urine Mucus Many - 3+; Urine Other Crystal Few - 1+ /hpf; Urine RBC None Seen /hpf (0-5); Urine Renal Epithelial Cell Few - 1+ /hpf; Urine Transitional Epi Cells Few - 1+ /hpf
[2019-10-05] MEDS: BUDESONIDE 0.5 MG/2 ML VIAL.NEB IH SCH (22:09)
[2019-10-05] MEDS ORDERED: MORPHINE SULFATE 2 MG/ML DISP.SYRIN IV PRN (22:19)
[2019-10-05] MEDS: NICOTINE 21 MG PATC TD SCH (22:40)
[2019-10-05] MEDS ORDERED: MORPHINE SULFATE 0.5 MG/ML IV PRN (23:00)
[2019-10-05] MEDS ORDERED: [UNRECOGNIZED DRUG - OTHER] IV PRN (23:00)
[2019-10-05] MEDS ORDERED: MORPHINE SULFATE IV PRN (23:00)
[2019-10-06] MEDS: ONDANSETRON HCL/PF 2 MG/ML VIAL IV PRN (03:15)
[2019-10-06] MEDS ORDERED: MORPHINE SULFATE 2 MG/ML DISP.SYRIN ONE (04:06)
[2019-10-06] MEDS: BUDESONIDE 0.5 MG/2 ML VIAL.NEB IH SCH ×3 (06:01→18:11)
[2019-10-06 06:51] LABS: Hematocrit 28.9 % (37.0-47.0); Hemoglobin 10.8 gm/dL (12.5-16.0); Mean Cell Volume 114.7 fl (78-100); Mean Corpuscular Hemoglobin 42.9 pg (27-31); Mean Corpuscular Hgb Conc 37.4 g/dl (32-36); Mean Platelet Volume 10.2 fl (8-12.5); Neutrophil # 7.3 K/mm3 (1.3-6.0); Platelet Count 106 K/mm3 (150-450); Red Blood Count 2.52 M/mm3 (4.2-5.4); Red Cell Distribution Width 13.4 % (11.5-14.0); White Blood Count 9.7 K/mm3 (4.0-10.5)
[2019-10-06 06:57] LABS: Anion Gap 12.7 mmol/L (6.8-13.8); BUN/Creatinine Ratio 13.9 (9.0-21.6); Bilirubin, Total 17.6 mg/dL (0.0-1.1); Ca. Corrected For Albumin 8.6 mg/dL (8.4-10.2); Calcium * 7.3 mg/dL (7.9-10.9); Carbon Dioxide 28.9 mmol/L (24-32.6); Potassium 2.6 mmol/L (3.4-4.6)
[2019-10-06] MEDS: FUROSEMIDE 80 MG TABLET PO SCH (08:28)
[2019-10-06] MEDS: SPIRONOLACTONE 25 MG TABLET PO SCH (08:28)
[2019-10-06] MEDS: FOLIC ACID 1 MG TABLET PO SCH (08:28)
[2019-10-06] MEDS: LACTULOSE 10 G/15 ML SYRUP PO SCH ×2 (08:29→21:40)
[2019-10-06] MEDS: ALBUTEROL SULFATE 2.5 MG/0.5 ML VIAL.NEB IH PRN ×2 (08:50→17:05)
[2019-10-06] MEDS ORDERED: POTASSIUM CHLORIDE 20 MEQ TABLET.SA PO ONE (09:15)
[2019-10-06] MEDS: MORPHINE SULFATE 2 MG/ML DISP.SYRIN IV PRN ×2 (09:24→21:51)
[2019-10-06] MEDS: NICOTINE 21 MG PATC TD SCH (21:41)
--- NOTE | 2019-10-07 | PN ---
Subjective - Date and Time Seen Date: 10/06/19 Time: 08:30 Subjective Narrative: Lesly reports feeling weak. She reports she has been taking her diuretics but also admits to drinking alcohol routinely. No fever or chills. She reports abdominal pain. Discussed hospice due to end stage liver failure secondary to alcoholic cirrhosis. She declines. She does report that she is waiting for a bed for inpatient alcohol treatment. Objective - Vitals Vitals: Last Vital Signs Temp 36.8 C 10/06/19 19:20 Pulse 96 10/06/19 19:20 Resp 20 10/06/19 19:20 BP 110/72 10/06/19 19:20 Pulse Ox 94 10/06/19 19:20 - Abnormal Lab Findings Abnormal Lab Findings: Abnormal Lab Results 10/06/19 10/06/19 Range/Units 06:35 06:35 RBC 2.52 L (4.2-5.4) M/mm3 Hgb 10.8 L (12.5-16.0) gm/dL Hct 28.9 L (37.0-47.0) % MCV 114.7 H (78-100) fl MCH 42.9 H (27-31) pg MCHC 37.4 H (32-36) g/dl Plt Count 106 L (150-450) K/mm3 Immature Gran % (Auto) 1.20 H (0.001-0.429) % Immature Gran # (Auto) 0.12 H (0.000-0.0310) K/mm3 Lymphocytes % 9.8 L (20-51) % Monocytes % 13.7 H (0.0-9) % Neutrophils # 7.3 H (1.3-6.0) K/mm3 Lymphocytes # 0.95 L (1.5-3.5) k/mm3 Monocytes # 1.3 H (0.0-1.0) k/mm3 Sodium 122 L (132-142) mmol/L Plasma Sodium 123 L (130-142) mmol/L Potassium 2.6 L (3.4-4.6) mmol/L Chloride 83 L (97-106) mmol/L Random Glucose 142 H (70-110) mg/dL Calcium 7.3 L (7.9-10.9) mg/dL Total Bilirubin 17.6 H (0.0-1.1) mg/dL AST 125 H (0-48) U/L Albumin 2.0 L (3.4-5.0) gm/dl - Exam Constitutional: Present: Alert, Oriented x3, Cooperative, No distress ENT Exam: Present: hearing grossly normal Respiratory: Present: lungs clear, normal breath sounds Cardiovascular/Chest: Present: regular rate, rhythm, no murmur Abdomen: Present: soft, distended, hypoactive Skin Exam: Present: jaundice Neurologic: Present: alert, normal mood/affect, oriented x 3 Assessment/Plan Plan Narrative: Lesly has significant electrolyte abnormality with potassium less than 3 and sodium of 123 with symptoms of weakness. These abnormalities are secondary to beer potomania, malnutrition, hypervolemia secondary to alcoholic cirrhosis. Treat with diuretics, replace potassium, may need fluid restriction. Will require >2 midnights to correct, will admit to inpatient status. Discussed hospice due to alcoholic cirrhosis.She declines at this time. - Problems/Diagnosis (1) Hyponatremia Problem: Acute (2) Ascites due to alcoholic cirrhosis Problem: Acute (3) Hepatic encephalopathy Problem: Acute (4) Hypokalemia Problem: Acute
[2019-10-07] MEDS: ALBUTEROL SULFATE 2.5 MG/0.5 ML VIAL.NEB IH PRN ×2 (01:15→18:08)
[2019-10-07] MEDS: BUDESONIDE 0.5 MG/2 ML VIAL.NEB IH SCH ×2 (06:04→18:05)
[2019-10-07 06:44] LABS: Hematocrit 28.5 % (37.0-47.0); Hemoglobin 10.3 gm/dL (12.5-16.0); Mean Cell Volume 116.8 fl (78-100); Mean Corpuscular Hemoglobin 42.2 pg (27-31); Mean Corpuscular Hgb Conc 36.1 g/dl (32-36); Mean Platelet Volume 10.5 fl (8-12.5); Platelet Count 96 K/mm3 (150-450); Red Blood Count 2.44 M/mm3 (4.2-5.4); Red Cell Distribution Width 13.5 % (11.5-14.0); White Blood Count 9.4 K/mm3 (4.0-10.5)
[2019-10-07] MEDS: MORPHINE SULFATE 2 MG/ML DISP.SYRIN IV PRN ×2 (06:54→17:11)
[2019-10-07 07:14] LABS: Albumin * 1.9 gm/dl (3.4-5.0); Anion Gap 10.2 mmol/L (6.8-13.8); BUN/Creatinine Ratio 13.1 (9.0-21.6); Bilirubin, Total 19.1 mg/dL (0.0-1.1); Ca. Corrected For Albumin 9.1 mg/dL (8.4-10.2); Calcium * 7.7 mg/dL (7.9-10.9); Carbon Dioxide 32.6 mmol/L (24-32.6); Potassium 2.8 mmol/L (3.4-4.6); Total Protein 6.8 gm/dL (6.2-8.2)
[2019-10-07] MEDS: SPIRONOLACTONE 25 MG TABLET PO SCH (08:39)
[2019-10-07] MEDS: FUROSEMIDE 80 MG TABLET PO SCH (08:39)
[2019-10-07] MEDS: FOLIC ACID 1 MG TABLET PO SCH (08:39)
[2019-10-07] MEDS: LACTULOSE 10 G/15 ML SYRUP PO SCH ×2 (08:40→21:52)
--- NOTE | 2019-10-07 11:30 | PN ---
Subjective - Date and Time Seen Date: 10/07/19 Time: 11:25 Subjective Narrative: Lesly reports continued abdominal pain. 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 The risks of doing a paracentesis outweigh the brief benefit that it would provide. No fever, chills, nausea, or vomiting. Objective - Vitals Vitals: Last Vital Signs Temp 37.1 C 10/07/19 10:00 Pulse 94 10/07/19 10:00 Resp 20 10/07/19 10:00 BP 92/49 10/07/19 10:00 Pulse Ox 92 L 10/07/19 10:00 - Abnormal Lab Findings Abnormal Lab Findings: Abnormal Lab Results 10/07/19 10/07/19 10/07/19 Range/Units 06:27 06:27 06:27 RBC 2.44 L (4.2-5.4) M/mm3 Hgb 10.3 L (12.5-16.0) gm/dL Hct 28.5 L (37.0-47.0) % MCV 116.8 H (78-100) fl MCH 42.2 H (27-31) pg MCHC 36.1 H (32-36) g/dl Plt Count 96 L (150-450) K/mm3 Immature Gran % (Auto) 0.80 H (0.001-0.429) % Immature Gran # (Auto) 0.08 H (0.000-0.0310) K/mm3 Lymphocytes % 11.8 L (20-51) % Monocytes % 13.1 H (0.0-9) % Neutrophils # 7.0 H (1.3-6.0) K/mm3 Lymphocytes # 1.11 L (1.5-3.5) k/mm3 Monocytes # 1.2 H (0.0-1.0) k/mm3 Sodium 124 L (132-142) mmol/L Plasma Sodium 125 L (130-142) mmol/L Potassium 2.8 L (3.4-4.6) mmol/L Chloride 84 L (97-106) mmol/L Random Glucose 143 H (70-110) mg/dL Calcium 7.7 L (7.9-10.9) mg/dL Total Bilirubin 19.1 H* (0.0-1.1) mg/dL AST 92 H (0-48) U/L Ammonia 41.0 H (11-35) mcmol/L Albumin 1.9 L (3.4-5.0) gm/dl - Exam Constitutional: Present: Alert, Oriented x3, Cooperative ENT Exam: Present: hearing grossly normal Respiratory: Present: lungs clear, normal breath sounds Cardiovascular/Chest: Present: regular rate, rhythm, no murmur Abdomen: Present: tender - mild tenderness, distended, hypoactive Skin Exam: Present: jaundice Assessment/Plan Plan Narrative: Sodium and potassium are slowly improving with potassium replacement and diuresis. hyponatremia is hypervolumic. Discussed paracentesis is not warranted as the risks outweigh the benefits as she just had a paracentesis a week ago and the fluid has already re-accumulated. She has no evidence of spontaneous bacterial peritonitis but the risk would be higher the more paracentesis she gets in the future. If pain becomes unbearable this could be considered. Further discussed hospice, she declines at this time. She has [facility] for alcohol [facility]. - Problems/Diagnosis (1) Hyponatremia Problem: Acute (2) Ascites due to alcoholic cirrhosis Problem: Acute (3) Hepatic encephalopathy Problem: Acute (4) Hypokalemia Problem: Acute
[2019-10-07] MEDS: NICOTINE 21 MG PATC TD SCH (21:52)
[2019-10-08] MEDS: MORPHINE SULFATE 2 MG/ML DISP.SYRIN IV PRN ×2 (02:48→15:59)
[2019-10-08] MEDS: ALBUTEROL SULFATE 2.5 MG/0.5 ML VIAL.NEB IH PRN ×3 (02:54→18:05)
[2019-10-08] MEDS: BUDESONIDE 0.5 MG/2 ML VIAL.NEB IH SCH ×2 (06:03→18:05)
[2019-10-08] MEDS: ONDANSETRON HCL/PF 2 MG/ML VIAL IV PRN (08:33)
--- NOTE | 2019-10-08 09:07 | PN ---
Subjective - Date and Time Seen Date: 10/08/19 Time: 09:03 Subjective Narrative: patient AAO x 3. had BM x 3 yesterday. Objective - Review of Systems Generalized/Overall Review: Denies: Weakness, Chills, Fever EENTM: Denies: Blurred Vision Respiratory: Denies: Cough, Shortness of Breath, Orthopnea Cardiac: Reports: Edema. Denies: Chest Pain, Palpitations Abdominal: Reports: Abdominal Pain. Denies: Nausea, Vomiting Genitourinary Symptoms: Denies: Urgency, Frequency Neurological: Denies: Headache Skin: Denies: Lesions, Rash Misc: All systems neg except as marked - Vitals Vitals: Last Vital Signs Temp 36.8 C 10/08/19 06:29 Pulse 102 H 10/08/19 06:29 Resp 16 10/08/19 06:29 BP 99/61 10/08/19 06:29 Pulse Ox 93 10/08/19 06:29 - Exam Constitutional: Present: Alert, Oriented x3, Cooperative ENT Exam: Present: hearing grossly normal Neck: Present: supple. Absent: lymphadenopathy (R), lymphadenopathy (L) Respiratory: Present: decreased breath sounds, No rales, No wheezing Cardiovascular/Chest: Present: regular rate, rhythm, no JVD, no murmur Abdomen: Present: Normal bowel sounds, soft, tender, distended. Absent: guarding, rebound tenderness Extremity: Present: no calf tenderness, lower extremity edema Assessment/Plan Plan Narrative: Seen the case is a 44-year-old white female admitted for ascites from alcoholic liver cirrhosis. She has hyponatremia likely hypotonic, hypervolemic as well as hypokalemia. Her BUN/creatinine is 11/0.84. We will repeat her blood work today. We will increase her spironolactone, increase her lactulose, and add rifaximin. Consider adding nadolol for portal hypertension blood pressure gets better. - Problems/Diagnosis (1) Ascites due to alcoholic cirrhosis Problem: Acute (2) Hypokalemia Problem: Acute (3) Hyponatremia Problem: Acute (4) Increased ammonia level Problem: Acute (5) Liver cirrhosis, alcoholic Problem: Chronic Qualifiers: Ascites presence: with ascites Qualified Code(s): K70.31 - Alcoholic cirrhosis of liver with ascites (6) Thrombocytopenia Problem: Chronic (7) Liver failure Problem: Chronic Qualifiers: Liver failure chronicity: chronic Hepatic coma status: without hepatic coma Qualified Code(s): K72.10 - Chronic hepatic failure without coma
[2019-10-08 09:30] LABS: Hematocrit 28.2 % (37.0-47.0); Hemoglobin 9.8 gm/dL (12.5-16.0); Mean Cell Volume 123.1 fl (78-100); Mean Corpuscular Hemoglobin 42.8 pg (27-31); Mean Corpuscular Hgb Conc 34.8 g/dl (32-36); Mean Platelet Volume 12.3 fl (8-12.5); Neutrophil # 8.9 K/mm3 (1.3-6.0); Neutrophil % 77.6 % (42-75.0); Platelet Count 82 K/mm3 (150-450); Red Blood Count 2.29 M/mm3 (4.2-5.4); Red Cell Distribution Width 14.2 % (11.5-14.0); White Blood Count 11.4 K/mm3 (4.0-10.5)
[2019-10-08] MEDS: FOLIC ACID 1 MG TABLET PO SCH (09:39)
[2019-10-08] MEDS: FUROSEMIDE 80 MG TABLET PO SCH (09:44)
[2019-10-08 09:48] LABS: Anion Gap 11.4 mmol/L (6.8-13.8); BUN/Creatinine Ratio 17.6 (9.0-21.6); Bilirubin, Total 20.3 mg/dL (0.0-1.1); Ca. Corrected For Albumin 9.3 mg/dL (8.4-10.2); Carbon Dioxide 32.4 mmol/L (24-32.6); Potassium 3.8 mmol/L (3.4-4.6); Total Protein 6.7 gm/dL (6.2-8.2)
[2019-10-08] MEDS: SPIRONOLACTONE 25 MG TABLET PO SCH (09:50)
[2019-10-08] MEDS: LACTULOSE 10 G/15 ML SYRUP PO SCH ×3 (09:50→17:34)
[2019-10-08] MEDS: RIFAXIMIN 200 MG TABLET PO SCH (20:03)
--- NOTE | 2019-10-08 20:10 | PN ---
Progess Note - Interim Date: 10/08/19 Time: 20:07 Narrative: 10/08/19 20:07 WBC is elevated. will do work up- CXR, UA but will likely need abdominal paracentesis- r/o SBP.
[2019-10-08] MEDS: NICOTINE 21 MG PATC TD SCH (21:34)
[2019-10-09] MEDS: MORPHINE SULFATE 2 MG/ML DISP.SYRIN IV PRN ×3 (02:21→22:22)
[2019-10-09] MEDS: ALBUTEROL SULFATE 2.5 MG/0.5 ML VIAL.NEB IH PRN (06:14)
[2019-10-09] MEDS: BUDESONIDE 0.5 MG/2 ML VIAL.NEB IH SCH ×2 (06:15→18:10)
[2019-10-09 06:55] LABS: Hematocrit 27.3 % (37.0-47.0); Hemoglobin 9.7 gm/dL (12.5-16.0); Mean Cell Volume 121.9 fl (78-100); Mean Corpuscular Hemoglobin 43.3 pg (27-31); Mean Corpuscular Hgb Conc 35.5 g/dl (32-36); Mean Platelet Volume 10.5 fl (8-12.5); Neutrophil # 10.8 K/mm3 (1.3-6.0); Neutrophil % 75.8 % (42-75.0); Platelet Count 107 K/mm3 (150-450); Red Blood Count 2.24 M/mm3 (4.2-5.4); Red Cell Distribution Width 14.2 % (11.5-14.0); White Blood Count 14.3 K/mm3 (4.0-10.5)
[2019-10-09 07:07] LABS: Albumin * 1.9 gm/dl (3.4-5.0); Anion Gap 8.6 mmol/L (6.8-13.8); BUN/Creatinine Ratio 19.8 (9.0-21.6); Bilirubin, Total 18.5 mg/dL (0.0-1.1); Ca. Corrected For Albumin 9.5 mg/dL (8.4-10.2); Calcium * 8.1 mg/dL (7.9-10.9); Carbon Dioxide 31.1 mmol/L (24-32.6); Potassium 3.7 mmol/L (3.4-4.6)
[2019-10-09 07:57] LABS: Urine Appearance Cloudy (CLEAR); Urine Color Orange
[2019-10-09 08:00] LABS: Urine Bacteria 2+; Urine RBC 0-5 /hpf (0-5); Urine WBC 0-5 /hpf (0-5)
[2019-10-09] MEDS: RIFAXIMIN 200 MG TABLET PO SCH ×2 (08:08→20:46)
[2019-10-09] MEDS: FOLIC ACID 1 MG TABLET PO SCH (08:08)
[2019-10-09] MEDS: SPIRONOLACTONE PO SCH ×2 (08:08)
[2019-10-09] MEDS ORDERED: SPIRONOLACTONE 25 MG TABLET PO SCH (09:00)
[2019-10-09] MEDS: LACTULOSE 10 G/15 ML SYRUP PO SCH ×3 (09:30→17:29)
[2019-10-09 09:34] LABS: Prothrombin Time (Patient) 18.1 Seconds (9.1-10.7)
[2019-10-09 09:36] LABS: INR 1.87 INR (0.92-1.08)
[2019-10-09] MEDS: FUROSEMIDE 80 MG TABLET PO SCH (09:51)
[2019-10-09] MEDS ORDERED: PHYTONADIONE (VIT K1) 5 MG TABLET PO ONE (13:09)
[2019-10-09] MEDS: NYSTATIN ORAL.SUSP PO SCH (20:45)
[2019-10-09] MEDS: NICOTINE 21 MG PATC TD SCH (21:59)
--- NOTE | 2019-10-09 23:02 | PN ---
Subjective - Date and Time Seen Date: 10/09/19 Time: 10:00 Subjective Narrative: Lesly reports continued abdominal pain. She has rising WBC and continued abdominal pain. Concern for possible bacterial peritonitis. Started on rifaximin. Planned to get paracentesis for culture but unable due to INR. Given Vitamin K oral. Sodium down to 120, changed to fluid restriction of 1500ml/24hr. Objective - Vitals Vitals: Last Vital Signs Temp 36.8 C 10/09/19 22:20 Pulse 91 10/09/19 22:20 Resp 18 10/09/19 22:20 BP 93/50 10/09/19 22:20 Pulse Ox 91 L 10/09/19 22:20 - Abnormal Lab Findings Abnormal Lab Findings: Abnormal Lab Results 10/09/19 10/09/19 10/09/19 Range/Units 06:47 06:51 06:51 WBC 14.3 H D (4.0-10.5) K/mm3 RBC 2.24 L (4.2-5.4) M/mm3 Hgb 9.7 L (12.5-16.0) gm/dL Hct 27.3 L (37.0-47.0) % MCV 121.9 H (78-100) fl MCH 43.3 H (27-31) pg RDW 14.2 H (11.5-14.0) % Plt Count 107 L (150-450) K/mm3 Immature Gran % (Auto) 1.30 H (0.001-0.429) % Immature Gran # (Auto) 0.18 H (0.000-0.0310) K/mm3 Neutrophils % 75.8 H (42-75.0) % Lymphocytes % 13.7 L (20-51) % Neutrophils # 10.8 H (1.3-6.0) K/mm3 Monocytes # 1.2 H (0.0-1.0) k/mm3 PT 18.1 H (9.1-10.7) Seconds INR (Anticoag Therapy) 1.87 H (0.92-1.08) INR Sodium 120 L (132-142) mmol/L Plasma Sodium 120 L (130-142) mmol/L Chloride 84 L (97-106) mmol/L Random Glucose 114 H (70-110) mg/dL Total Bilirubin 18.5 H* (0.0-1.1) mg/dL AST 83 H (0-48) U/L Albumin 1.9 L (3.4-5.0) gm/dl Ur Epithelial Cells (0-5) /hpf Urine Bacteria (NONE) 10/09/19 Range/Units 07:24 WBC (4.0-10.5) K/mm3 RBC (4.2-5.4) M/mm3 Hgb (12.5-16.0) gm/dL Hct (37.0-47.0) % MCV (78-100) fl MCH (27-31) pg RDW (11.5-14.0) % Plt Count (150-450) K/mm3 Immature Gran % (Auto) (0.001-0.429) % Immature Gran # (Auto) (0.000-0.0310) K/mm3 Neutrophils % (42-75.0) % Lymphocytes % (20-51) % Neutrophils # (1.3-6.0) K/mm3 Monocytes # (0.0-1.0) k/mm3 PT (9.1-10.7) Seconds INR (Anticoag Therapy) (0.92-1.08) INR Sodium (132-142) mmol/L Plasma Sodium (130-142) mmol/L Chloride (97-106) mmol/L Random Glucose (70-110) mg/dL Total Bilirubin (0.0-1.1) mg/dL AST (0-48) U/L Albumin (3.4-5.0) gm/dl Ur Epithelial Cells 10-25 H (0-5) /hpf Urine Bacteria 2+ H (NONE) - Exam Constitutional: Present: Alert, Oriented x3, Cooperative ENT Exam: Present: hearing grossly normal Respiratory: Present: lungs clear, normal breath sounds Cardiovascular/Chest: Present: regular rate, rhythm, no murmur Abdomen: Present: Normal bowel sounds, tender - diffuse, distended Skin Exam: Present: warm/dry, no cyanosis, jaundice Lymphatic: Present: no adenopathy Assessment/Plan Plan Narrative: 1) Hyponatremia (hypervolumic) - Placed on fluid restriction of 1500ml, will recheck sodium. 2) Hypokalemia - Monitoring 3) Spontaneous Bacterial Peritonitis - On rifaximin. Ordered paracentesis but was unable due to elevated INR above radiology goal. Given Vitamin K today, will recheck INR. Plan for paracentesis when INR down low enough for treatment and diagnositic for culture. 4) Ascities secondary to alcohol cirrhosis - discussed hospice, patient declines. Discussed her liver is significantly impaired as evidence by elevated INR, low platelets, jaundice 5) Hyperammonemia - Elevated secondary to alcoholic cirrhosis. Treat with lactulose. - Problems/Diagnosis (1) Hyponatremia Problem: Acute (2) Ascites due to alcoholic cirrhosis Problem: Acute (3) Hepatic encephalopathy Problem: Acute (4) Hypokalemia Problem: Acute (5) SBP (spontaneous bacterial peritonitis) Problem: Suspected (6) Hyperammonemia Problem: Acute
[2019-10-09 23:25] LABS: Prothrombin Time (Patient) 19.5 Seconds (9.1-10.7)
[2019-10-09 23:29] LABS: INR 2.02 INR (0.92-1.08)
[2019-10-10] MEDS ORDERED: PHYTONADIONE (VIT K1) 5 MG TABLET PO ONE (00:08)
[2019-10-10 03:38] LABS: Albumin * 1.8 gm/dl (3.4-5.0); Anion Gap 9.5 mmol/L (6.8-13.8); BUN/Creatinine Ratio 17.9 (9.0-21.6); Bilirubin, Total 16.6 mg/dL (0.0-1.1); Ca. Corrected For Albumin 9.7 mg/dL (8.4-10.2); Calcium * 8.3 mg/dL (7.9-10.9); Potassium 3.5 mmol/L (3.4-4.6); Total Protein 6.4 gm/dL (6.2-8.2)
[2019-10-10] MEDS: MORPHINE SULFATE 2 MG/ML DISP.SYRIN IV PRN ×3 (04:34→22:38)
[2019-10-10] MEDS: BUDESONIDE 0.5 MG/2 ML VIAL.NEB IH SCH ×2 (06:07→18:08)
[2019-10-10] MEDS: ALBUTEROL SULFATE 2.5 MG/0.5 ML VIAL.NEB IH PRN ×2 (06:07→18:09)
[2019-10-10 06:23] LABS: Prothrombin Time (Patient) 18.7 Seconds (9.1-10.7)
[2019-10-10 06:24] LABS: Hematocrit 24.1 % (37.0-47.0); Hemoglobin 8.6 gm/dL (12.5-16.0); INR 1.94 INR (0.92-1.08); Mean Cell Volume 120.5 fl (78-100); White Blood Count 14.7 K/mm3 (4.0-10.5)
[2019-10-10 06:25] LABS: Mean Corpuscular Hgb Conc 35.7 g/dl (32-36); Mean Platelet Volume 10.3 fl (8-12.5); Platelet Count 120 K/mm3 (150-450); Red Cell Distribution Width 14.3 % (11.5-14.0)
[2019-10-10 06:26] LABS: Albumin * 1.7 gm/dl (3.4-5.0); Anion Gap 6.2 mmol/L (6.8-13.8); Bilirubin, Total 15.4 mg/dL (0.0-1.1); Ca. Corrected For Albumin 9.7 mg/dL (8.4-10.2); Calcium * 8.2 mg/dL (7.9-10.9); Carbon Dioxide 33.3 mmol/L (24-32.6); Potassium 3.5 mmol/L (3.4-4.6); Total Protein 6.3 gm/dL (6.2-8.2)
[2019-10-10 06:39] LABS: Total Cells Counted 100
[2019-10-10 06:40] LABS: Lymphocyte 12 % (20-51); Monocyte 9 % (0-9); Neutrophil 79 % (42-75); Neutrophil # 11.6 K/mm3 (1.3-6.0); Platelet Estimate Decreased (NORMAL); RBC Morphology Normal (NORMAL)
--- NOTE | 2019-10-10 08:30 | PN ---
Subjective - Date and Time Seen Date: 10/10/19 Time: 08:29 Subjective Narrative: Lesly reports no change from yesterday, she continues to have abdominal pain. No fever or chills. WBC remains elevated. Sodium up to 122 from 120 yesterday with fluid restrictions at 1500ml. Objective - Vitals Vitals: Last Vital Signs Temp 36.9 C 10/10/19 06:31 Pulse 95 10/10/19 06:31 Resp 16 10/10/19 06:31 BP 92/41 10/10/19 06:31 Pulse Ox 91 L 10/10/19 06:31 - Abnormal Lab Findings Abnormal Lab Findings: Abnormal Lab Results 10/09/19 10/09/19 10/09/19 Range/Units 06:47 23:10 23:10 WBC (4.0-10.5) K/mm3 RBC (4.2-5.4) M/mm3 Hgb (12.5-16.0) gm/dL Hct (37.0-47.0) % MCV (78-100) fl MCH (27-31) pg RDW (11.5-14.0) % Plt Count (150-450) K/mm3 Neutrophils % (Manual) (42-75) % Lymphocytes % (Manual) (20-51) % Neutrophils # (Manual) (1.3-6.0) K/mm3 Monocytes # (Manual) (0.0-1.0) k/mm3 Platelet Estimate (NORMAL) PT 18.1 H 19.5 H (9.1-10.7) Seconds INR (Anticoag Therapy) 1.87 H 2.02 H (0.92-1.08) INR Sodium 122 L (132-142) mmol/L Plasma Sodium 123 L (130-142) mmol/L Chloride 84 L (97-106) mmol/L Carbon Dioxide (24-32.6) mmol/L Anion Gap (6.8-13.8) mmol/L Est GFR (Non-Af Amer) 56 L D (60-130) mL/min Random Glucose 151 H D (70-110) mg/dL Total Bilirubin 16.6 H (0.0-1.1) mg/dL AST 76 H (0-48) U/L Albumin 1.8 L (3.4-5.0) gm/dl 10/10/19 10/10/19 10/10/19 Range/Units 06:10 06:10 06:10 WBC 14.7 H (4.0-10.5) K/mm3 RBC 2.00 L (4.2-5.4) M/mm3 Hgb 8.6 L (12.5-16.0) gm/dL Hct 24.1 L (37.0-47.0) % MCV 120.5 H (78-100) fl MCH 43.0 H (27-31) pg RDW 14.3 H (11.5-14.0) % Plt Count 120 L (150-450) K/mm3 Neutrophils % (Manual) 79 H (42-75) % Lymphocytes % (Manual) 12 L (20-51) % Neutrophils # (Manual) 11.6 H (1.3-6.0) K/mm3 Monocytes # (Manual) 1.3 H (0.0-1.0) k/mm3 Platelet Estimate Decreased L (NORMAL) PT 18.7 H (9.1-10.7) Seconds INR (Anticoag Therapy) 1.94 H (0.92-1.08) INR Sodium 121 L (132-142) mmol/L Plasma Sodium 122 L (130-142) mmol/L Chloride 85 L (97-106) mmol/L Carbon Dioxide 33.3 H (24-32.6) mmol/L Anion Gap 6.2 L (6.8-13.8) mmol/L Est GFR (Non-Af Amer) (60-130) mL/min Random Glucose 142 H (70-110) mg/dL Total Bilirubin 15.4 H (0.0-1.1) mg/dL AST 72 H (0-48) U/L Albumin 1.7 L (3.4-5.0) gm/dl - Exam Constitutional: Present: Alert, Oriented x3, Cooperative ENT Exam: Present: hearing grossly normal Respiratory: Present: lungs clear, no respiratory distress Cardiovascular/Chest: Present: regular rate, rhythm, no murmur Abdomen: Present: Normal bowel sounds, soft, tender, distended Skin Exam: Present: jaundice Assessment/Plan Plan Narrative: Lesly has had some improvement in sodium with fluid restrictions from 120 to 122. Continue fluid restrictions and diuretics. I continue to believe hyponatremia is hypervolumic secondary to cirrhosis and low protein malnutrition. WBC remains elevated today, trying to get ascities fluid for analysis to evaluate for SBP. INR is too high to do paracentesis at this time. Attempted to lower INR with vitamin K but due to liver failure vitamin K is ineffective. Will attempt transfusion of FFP and repeat INR 1 hr after infusion. Will attempt paracentesis if INR drops enough. Potassium is corrected and ammonia level has normalized. No further episodes of altered mentation. - Problems/Diagnosis (1) Hyponatremia Problem: Acute (2) Ascites due to alcoholic cirrhosis Problem: Acute (3) SBP (spontaneous bacterial peritonitis) Problem: Suspected (4) Hypokalemia Problem: Resolved (5) Hyperammonemia Problem: Resolved (6) Hepatic encephalopathy Problem: Resolved
[2019-10-10] MEDS: RIFAXIMIN 200 MG TABLET PO SCH ×2 (08:54→21:41)
[2019-10-10] MEDS: FOLIC ACID 1 MG TABLET PO SCH (08:54)
[2019-10-10] MEDS: LACTULOSE 10 G/15 ML SYRUP PO SCH ×3 (08:54→16:38)
[2019-10-10] MEDS: NYSTATIN ORAL.SUSP PO SCH ×4 (08:55→21:43)
[2019-10-10] MEDS: FUROSEMIDE 80 MG TABLET PO SCH (09:07)
[2019-10-10] MEDS: SPIRONOLACTONE PO SCH ×2 (09:07)
[2019-10-10 13:45] LABS: INR 1.78 INR (0.92-1.08); Prothrombin Time (Patient) 17.2 Seconds (9.1-10.7)
[2019-10-10 16:09] LABS: Body Fluid WBC 186 /uL (0-1000)
[2019-10-10 16:41] LABS: Body Fluid Appearance CLEAR (CLEAR)
[2019-10-10 16:42] LABS: Body Fluid Color YELLOW (COLORLESS)
[2019-10-10] MEDS: NICOTINE 21 MG PATC TD SCH (21:41)
[2019-10-11] MEDS: ALBUTEROL SULFATE 2.5 MG/0.5 ML VIAL.NEB IH PRN ×2 (06:02→18:36)
[2019-10-11] MEDS: BUDESONIDE 0.5 MG/2 ML VIAL.NEB IH SCH ×2 (06:02→18:36)
[2019-10-11 07:18] LABS: Hemoglobin 8.8 gm/dL (12.5-16.0); Mean Cell Volume 123.8 fl (78-100); Mean Corpuscular Hemoglobin 43.6 pg (27-31); Mean Corpuscular Hgb Conc 35.2 g/dl (32-36); Platelet Count 109 K/mm3 (150-450); Red Blood Count 2.02 M/mm3 (4.2-5.4); Red Cell Distribution Width 14.4 % (11.5-14.0); White Blood Count 13.1 K/mm3 (4.0-10.5)
[2019-10-11 07:32] LABS: Prothrombin Time (Patient) 17.8 Seconds (9.1-10.7)
[2019-10-11 07:35] LABS: Albumin * 1.8 gm/dl (3.4-5.0); Anion Gap 8.9 mmol/L (6.8-13.8); BUN/Creatinine Ratio 18.2 (9.0-21.6); Bilirubin, Total 14.7 mg/dL (0.0-1.1); Ca. Corrected For Albumin 9.6 mg/dL (8.4-10.2); Calcium * 8.2 mg/dL (7.9-10.9); Carbon Dioxide 33.6 mmol/L (24-32.6); Potassium 4.5 mmol/L (3.4-4.6); Total Protein 6.5 gm/dL (6.2-8.2)
[2019-10-11 07:37] LABS: INR 1.84 INR (0.92-1.08)
[2019-10-11 07:38] LABS: Total Cells Counted 100
[2019-10-11] MEDS: MORPHINE SULFATE 2 MG/ML DISP.SYRIN IV PRN ×2 (07:55→13:24)
[2019-10-11 08:32] LABS: Eosinophil 1 % (0-3); Lymphocyte 6 % (20-51); Monocyte 9 % (0-9); Neutrophil 84 % (42-75)
[2019-10-11 08:33] LABS: Macrocytosis 2+; Platelet Estimate Decreased (NORMAL)
--- NOTE | 2019-10-11 08:51 | PN ---
Subjective - Date and Time Seen Date: 10/11/19 Time: 08:36 Subjective Narrative: She reports feeling the same as yesterday, still having abdominal soreness and pain in bilateral sides, abdomen, and top of her head. She reports she is looking forward to her sister arriving around 9 am today. Objective - Review of Systems Generalized/Overall Review: Denies: Fever Respiratory: Denies: Cough Cardiac: Denies: Chest Pain, Edema Abdominal: Reports: Abdominal Pain Genitourinary Symptoms: Reports: No Symptoms Reported Neurological: Reports: Headache - Vitals Vitals: Last Vital Signs Temp 37.0 C 10/11/19 06:20 Pulse 90 10/11/19 06:20 Resp 18 10/11/19 06:20 BP 90/45 10/11/19 06:20 Pulse Ox 100 10/11/19 06:20 - Abnormal Lab Findings Abnormal Lab Findings: Abnormal Lab Results 10/10/19 10/11/19 10/11/19 Range/Units 13:30 07:10 07:10 WBC 13.1 H (4.0-10.5) K/mm3 RBC 2.02 L (4.2-5.4) M/mm3 Hgb 8.8 L (12.5-16.0) gm/dL Hct 25.0 L (37.0-47.0) % MCV 123.8 H (78-100) fl MCH 43.6 H (27-31) pg RDW 14.4 H (11.5-14.0) % Plt Count 109 L (150-450) K/mm3 Neutrophils % (Manual) 84 H (42-75) % Lymphocytes % (Manual) 6 L (20-51) % Neutrophils # (Manual) 11.0 H (1.3-6.0) K/mm3 Lymphocytes # (Manual) 0.8 L (1.5-3.5) k/mm3 Monocytes # (Manual) 1.2 H (0.0-1.0) k/mm3 Platelet Estimate Decreased L (NORMAL) PT 17.2 H 17.8 H (9.1-10.7) Seconds INR (Anticoag Therapy) 1.78 H 1.84 H (0.92-1.08) INR Sodium (132-142) mmol/L Plasma Sodium (130-142) mmol/L Chloride (97-106) mmol/L Carbon Dioxide (24-32.6) mmol/L Est GFR (Non-Af Amer) (60-130) mL/min Total Bilirubin (0.0-1.1) mg/dL AST (0-48) U/L Albumin (3.4-5.0) gm/dl 10/11/19 Range/Units 07:10 WBC (4.0-10.5) K/mm3 RBC (4.2-5.4) M/mm3 Hgb (12.5-16.0) gm/dL Hct (37.0-47.0) % MCV (78-100) fl MCH (27-31) pg RDW (11.5-14.0) % Plt Count (150-450) K/mm3 Neutrophils % (Manual) (42-75) % Lymphocytes % (Manual) (20-51) % Neutrophils # (Manual) (1.3-6.0) K/mm3 Lymphocytes # (Manual) (1.5-3.5) k/mm3 Monocytes # (Manual) (0.0-1.0) k/mm3 Platelet Estimate (NORMAL) PT (9.1-10.7) Seconds INR (Anticoag Therapy) (0.92-1.08) INR Sodium 125 L (132-142) mmol/L Plasma Sodium 125 L (130-142) mmol/L Chloride 87 L (97-106) mmol/L Carbon Dioxide 33.6 H (24-32.6) mmol/L Est GFR (Non-Af Amer) 51 L (60-130) mL/min Total Bilirubin 14.7 H (0.0-1.1) mg/dL AST 81 H (0-48) U/L Albumin 1.8 L (3.4-5.0) gm/dl - Exam Constitutional: Present: Alert, Looks Older than stated age - appears jaundiced Respiratory: Present: normal breath sounds, no respiratory distress Cardiovascular/Chest: Present: regular rate, rhythm, systolic murmur - II/ Abdomen: Present: firm, distended Extremity: Absent: lower extremity edema Neurologic: Present: normal mood/affect Assessment/Plan - Problems/Diagnosis (1) Ascites due to alcoholic cirrhosis Problem: Chronic Narrative: She underwent another paracentesis yesterday and 2500 cc of fluid removed. Culture on that fluid is negative so far. Her most recent paracentesis was only last week. She is prescribed Lasix and spironolactone, but her blood pressure has been low and Lasix has been held 10/09 and again today. She is end-stage liver failure, and hospice has been discussed with her, but she is resistant. She still hopes to improve. White blood cell count improved today. She reports her most recent drink was about a month ago. She does not have a safe place to go home to after discharge. Case management is thankfully helping with placement options. We will need to continue to discuss hospice with her. (2) Liver failure Problem: Chronic Qualifiers: Liver failure chronicity: chronic Hepatic coma status: without hepatic coma Qualified Code(s): K72.10 - Chronic hepatic failure without coma Narrative: INR slightly increased to 1.84 today. She is not on warfarin. Platelets are still low at 109, down from 120 yesterday. She is jaundiced in appearance. (3) S/P abdominal paracentesis Problem: Acute Narrative: There was concern for SBP with her elevated white count, but culture on that a scitic abdominal fluid is negative. White cell count improved today. (4) Thrombocytopenia Problem: Chronic Narrative: Platelets are 109 today down from 120 yesterday. Due to liver failure.
[2019-10-11] MEDS: SPIRONOLACTONE PO SCH ×2 (09:25)
[2019-10-11] MEDS: LACTULOSE 10 G/15 ML SYRUP PO SCH ×2 (09:26→13:12)
[2019-10-11] MEDS: FOLIC ACID 1 MG TABLET PO SCH (09:27)
[2019-10-11] MEDS: RIFAXIMIN 200 MG TABLET PO SCH ×2 (09:31→22:08)
[2019-10-11] MEDS: NYSTATIN ORAL.SUSP PO SCH ×4 (09:31→22:07)
[2019-10-11] MEDS: FUROSEMIDE 80 MG TABLET PO SCH (09:40)
[2019-10-11] MEDS ORDERED: NORMAL SALINE 1,000 ML IV ONE (16:00)
[2019-10-11] MEDS ORDERED: NORMAL SALINE 250 ML IV PRN (16:00)
[2019-10-11] MEDS ORDERED: NORMAL SALINE 250 ML IV ONE (20:28)
[2019-10-11] MEDS ORDERED: KETOROLAC TROMETHAMINE 30 MG/ML VIAL IV ONE (20:39)
[2019-10-11] MEDS ORDERED: KETOROLAC TROMETHAMINE 30 MG/ML VIAL ONE (22:01)
[2019-10-11] MEDS: NICOTINE 21 MG PATC TD SCH (22:08)
[2019-10-12] MEDS: KETOROLAC TROMETHAMINE 30 MG/ML VIAL IV PRN ×4 (03:44→22:46)
[2019-10-12] MEDS: BUDESONIDE 0.5 MG/2 ML VIAL.NEB IH SCH ×2 (06:04→18:09)
[2019-10-12] MEDS: ALBUTEROL SULFATE 2.5 MG/0.5 ML VIAL.NEB IH PRN ×2 (06:06→18:09)
[2019-10-12 07:39] LABS: Hematocrit 25.2 % (37.0-47.0); Hemoglobin 8.8 gm/dL (12.5-16.0); Mean Cell Volume 124.1 fl (78-100); Mean Corpuscular Hemoglobin 43.3 pg (27-31); Mean Corpuscular Hgb Conc 34.9 g/dl (32-36); Platelet Count 102 K/mm3 (150-450); Red Blood Count 2.03 M/mm3 (4.2-5.4); Red Cell Distribution Width 14.5 % (11.5-14.0); White Blood Count 11.9 K/mm3 (4.0-10.5)
[2019-10-12 08:00] LABS: Albumin * 1.7 gm/dl (3.4-5.0); Anion Gap 9.3 mmol/L (6.8-13.8); Bilirubin, Total 12.5 mg/dL (0.0-1.1); Ca. Corrected For Albumin 9.6 mg/dL (8.4-10.2); Calcium * 8.1 mg/dL (7.9-10.9); Carbon Dioxide 31.2 mmol/L (24-32.6); Potassium 4.5 mmol/L (3.4-4.6); Total Protein 6.6 gm/dL (6.2-8.2)
[2019-10-12 08:04] LABS: Total Cells Counted 100
[2019-10-12 08:51] LABS: Band 2 % (0-2.0); Eosinophil 1 % (0-3); Lymphocyte 17 % (20-51); Microcytosis 2+; Monocyte 15 % (0-9); Neutrophil 65 % (42-75); Neutrophil # 7.7 K/mm3 (1.3-6.0); Platelet Estimate Decreased (NORMAL)
[2019-10-12] MEDS: LACTULOSE 10 G/15 ML SYRUP PO SCH ×3 (10:13→16:24)
[2019-10-12] MEDS: RIFAXIMIN 200 MG TABLET PO SCH ×2 (10:14→20:37)
[2019-10-12] MEDS: FOLIC ACID 1 MG TABLET PO SCH (10:14)
[2019-10-12] MEDS: FUROSEMIDE 80 MG TABLET PO SCH (10:15)
[2019-10-12] MEDS: SPIRONOLACTONE PO SCH ×2 (10:15)
[2019-10-12] MEDS: NYSTATIN ORAL.SUSP PO SCH ×4 (10:15→20:37)
[2019-10-12] MEDS ORDERED: NORMAL SALINE 250 ML IV ONE ×2 (12:30→19:16)
--- NOTE | 2019-10-12 12:56 | PN ---
Subjective - Date and Time Seen Date: 10/12/19 Time: 11:30 Subjective Narrative: Patient seen and examined with her sister present. No significant change from yesterday. She had some abdominal pain overnight. Morphine was held due to low blood pressure. His sister states she said yesterday she knows she is dying. Objective - Review of Systems Generalized/Overall Review: Reports: Weakness. Denies: Fever Respiratory: Reports: Shortness of Breath. Denies: Cough Cardiac: Denies: Chest Pain, Edema Abdominal: Reports: Abdominal Pain Genitourinary Symptoms: Reports: No Symptoms Reported Neurological: Reports: No Symptoms Reported - Vitals Vitals: Last Vital Signs Temp 36.6 C 10/12/19 10:00 Pulse 80 10/12/19 10:15 Resp 18 10/12/19 10:00 BP 82/37 L 10/12/19 10:15 Pulse Ox 95 10/12/19 10:00 - Abnormal Lab Findings Abnormal Lab Findings: Abnormal Lab Results 10/12/19 10/12/19 Range/Units 07:28 07:28 WBC 11.9 H (4.0-10.5) K/mm3 RBC 2.03 L (4.2-5.4) M/mm3 Hgb 8.8 L (12.5-16.0) gm/dL Hct 25.2 L (37.0-47.0) % MCV 124.1 H (78-100) fl MCH 43.3 H (27-31) pg RDW 14.5 H (11.5-14.0) % Plt Count 102 L (150-450) K/mm3 Lymphocytes % (Manual) 17 L (20-51) % Monocytes % (Manual) 15 H (0-9) % Neutrophils # (Manual) 7.7 H (1.3-6.0) K/mm3 Monocytes # (Manual) 1.8 H (0.0-1.0) k/mm3 Platelet Estimate Decreased L (NORMAL) Sodium 121 L (132-142) mmol/L Plasma Sodium 122 L (130-142) mmol/L Chloride 85 L (97-106) mmol/L BUN 32 H (3-23) mg/dL Creatinine 1.78 H D (0.4-1.4) mg/dL Est GFR (Non-Af Amer) 33 L D (60-130) mL/min Random Glucose 137 H D (70-110) mg/dL Total Bilirubin 12.5 H (0.0-1.1) mg/dL AST 81 H (0-48) U/L Albumin 1.7 L (3.4-5.0) gm/dl - Exam Constitutional: Present: Alert, Cooperative, No distress, Looks Older than stated age Respiratory: Present: lungs clear Cardiovascular/Chest: Present: regular rate, rhythm, systolic murmur Abdomen: Present: firm, distended Skin Exam: Present: jaundice Eye contact: Present: good eye contact Thoughts: Present: other - tearful Assessment/Plan - Problems/Diagnosis (1) Liver failure Problem: Chronic Qualifiers: Liver failure chronicity: chronic Hepatic coma status: without hepatic coma Qualified Code(s): K72.10 - Chronic hepatic failure without coma Narrative: MELD score of 33. Her INR is high at 1.78, platelets low at 102, hgb low at 8.8. I believe her disease process is too far advanced for transplant, and she likely would not survive a surgery. Her BP is low, with a MAP in the 50's. Will administer another 250 cc bolus, but she is aware this may worsen her abdominal distention. Her BP will not tolerate aggressive diuresis, but diuresis is needed to prevent accumulation of ascitic fluid. Recommend hospice. Discussed code status with her, and she does not want her ribs broken. It was explained to her that ribs will break with CPR. Her sister supports pursuing hospice benefits, and will continue to discuss this with her. (2) Ascites due to alcoholic cirrhosis Problem: Chronic Narrative: She has had two paracenteses in the last couple of weeks. SBP not present. MELD score of 33, which corresponds to high mortality. Further paracenteses increase her risk of bacterial peritonitis. (3) Acute kidney injury Problem: Acute Narrative: Creatinine increased from 1.21 to 1.78. She is on his fluid restrictions due to her hyponatremia. Likely due to her liver failure. May be developing hepatorenal syndrome. Discussed the severity of this new development today. Urine output is less than a liter a day, but unsure how much of her total output is actually measured. (4) S/P abdominal paracentesis Problem: Acute (5) Thrombocytopenia Problem: Chronic (6) Hyponatremia Problem: Acute Narrative: Will continue fluid restrictions. Suspect hypervolemia.
[2019-10-12] MEDS: ONDANSETRON HCL/PF 2 MG/ML VIAL IV PRN (13:12)
[2019-10-12] MEDS: MIDODRINE HCL 2.5 MG TABLET PO SCH (19:55)
[2019-10-12] MEDS: NICOTINE 21 MG PATC TD SCH (22:45)
[2019-10-13] MEDS: ONDANSETRON HCL/PF 2 MG/ML VIAL IV PRN (04:25)
--- NOTE | 2019-10-13 05:15 | PATH ---
PHYSICIAN: Reggie Davis DO / Darrick rGoss DO radiologist LAB#: [id number] SPECIMEN DATE: 10/13/2019 SPECIMEN: Ascites fluid CLINICAL INFORMATION: The patient is a 44-year-old woman known who was admitted to [facility] for increasing ascites management. Patient is a known chronic alcoholic with macrocytic anemia, anxiety disorder, depressi on, COPD,'s hypertension, nicotine dependence and liver cirrhosis. Patient benign reactive transudate on 09/29/2019 ([facility] [id number] reported 09/29/2019)). Patient underwent ultrasound guided paracentesis on 10/10/2019 and the specimen was processed 10/13/2019 for cytology. Operative findings: 2000 mL of yellow cloudy frothy fluid. GROSS DESCRIPTION: The specimen is received fresh in the lab appropriately designated "ascites fluid." The specimen consists of 2000 mL of cloudy frothy fluid. A 40 mL aliquot is processed with equal volume of cytospin fixative and 2 cytospin slides are processed and Pap stained. Cell block is obtained and processed. Serum albumin 1.7 g/dL -peritoneal albumin 0.5 g/dL = 1.2 g/dL elevated albumin gradient. Ascites total protein 1.7 g/dL/serum total protein 6.3 g/dL = .27 consistent with transudate DIAGNOSIS: PERITONEAL CAVITY, ASCITES FLUID, PARACENTESIS: -BENIGN REACTIVE CHANGES IN AN LOW CELLULARITY TRANSUDATE COMMENT: Cytospin's and cell block show abundant proteinaceous debris, few lymphocytes, some mesothelial cells, some histiocytes, rare PMNs and rare RBCs. On the basis of protein and albumin studies studies of ascites fluid, the findings are a transudate with an elevated albumin gradient consistent with the clinical history of liver cirrhosis due to alcoholism. Case preliminary findings are communicated to Dr. Ridley on 10/13/2019 by [place].
[2019-10-13] MEDS: ALBUTEROL SULFATE 2.5 MG/0.5 ML VIAL.NEB IH PRN (06:04)
[2019-10-13] MEDS: BUDESONIDE 0.5 MG/2 ML VIAL.NEB IH SCH ×2 (06:04→18:19)
[2019-10-13 07:04] LABS: Hemoglobin 8.1 gm/dL (12.5-16.0); Mean Cell Volume 123.4 fl (78-100); Mean Corpuscular Hgb Conc 35.7 g/dl (32-36); Mean Platelet Volume 10.1 fl (8-12.5); Platelet Count 103 K/mm3 (150-450); Red Blood Count 1.84 M/mm3 (4.2-5.4); Red Cell Distribution Width 14.4 % (11.5-14.0)
[2019-10-13 07:10] LABS: Prothrombin Time (Patient) 15.6 Seconds (9.1-10.7)
[2019-10-13 07:11] LABS: INR 1.6 INR (0.92-1.08)
[2019-10-13 07:15] LABS: Albumin * 1.7 gm/dl (3.4-5.0); Anion Gap 11.8 mmol/L (6.8-13.8); BUN/Creatinine Ratio 15.5 (9.0-21.6); Bilirubin, Total 10.8 mg/dL (0.0-1.1); Ca. Corrected For Albumin 9.7 mg/dL (8.4-10.2); Calcium * 8.2 mg/dL (7.9-10.9); Potassium 4.8 mmol/L (3.4-4.6); Total Protein 6.3 gm/dL (6.2-8.2)
[2019-10-13 07:22] LABS: Hematocrit 22.7 % (37.0-47.0)
[2019-10-13 07:23] LABS: Total Cells Counted 100
[2019-10-13 07:45] LABS: Band 3 % (0-2.0); Eosinophil 1 % (0-3); Lymphocyte 12 % (20-51); Monocyte 12 % (0-9); Neutrophil 72 % (42-75); Neutrophil # 8.6 K/mm3 (1.3-6.0)
[2019-10-13 07:47] LABS: Platelet Estimate Decreased (NORMAL)
[2019-10-13 07:49] LABS: Macrocytosis 2+; Target Cells 1+
[2019-10-13 07:50] LABS: Polychromasia Trace
[2019-10-13] MEDS: FUROSEMIDE 80 MG TABLET PO SCH (08:27)
[2019-10-13] MEDS: NYSTATIN ORAL.SUSP PO SCH ×4 (09:04→21:42)
[2019-10-13] MEDS: FOLIC ACID 1 MG TABLET PO SCH (09:04)
[2019-10-13] MEDS: RIFAXIMIN 200 MG TABLET PO SCH (09:05)
[2019-10-13] MEDS: LACTULOSE 10 G/15 ML SYRUP PO SCH (09:05)
[2019-10-13] MEDS: MIDODRINE HCL 2.5 MG TABLET PO SCH (09:05)
[2019-10-13] MEDS: SPIRONOLACTONE PO SCH ×2 (09:14)
[2019-10-13 10:07] VITALS: BP 86/32
[2019-10-13] MEDS ORDERED: LORazepam 2 MG/ML DISP.SYRIN IV PRN (10:17)
[2019-10-13] MEDS: MORPHINE SULFATE 10 MG/0.5 ML SYRINGE PO PRN ×3 (10:33→16:53)
--- NOTE | 2019-10-13 10:41 | PN ---
Subjective - Date and Time Seen Date: 10/13/19 Time: 10:21 Subjective Narrative: Patient decided to be a DNR yesterday evening. She and her family decided she would like to pursue hospice benefits. She feels like her abdomen is more distended than yesterday. Objective - Review of Systems Generalized/Overall Review: Denies: Fever Respiratory: Denies: Cough Cardiac: Denies: Chest Pain Abdominal: Reports: Abdominal Pain Genitourinary Symptoms: Reports: No Symptoms Reported Musculoskeletal Complaints: Reports: No Symptoms Reported Neurological: Reports: No Symptoms Reported - Vitals Vitals: Last Vital Signs Temp 37.1 C 10/13/19 10:06 Pulse 80 10/13/19 10:06 Resp 14 10/13/19 10:06 BP 86/32 L 10/13/19 10:06 Pulse Ox 92 L 10/13/19 10:06 - Abnormal Lab Findings Abnormal Lab Findings: Abnormal Lab Results 10/13/19 10/13/19 10/13/19 Range/Units 07:00 07:00 07:00 WBC 12.0 H (4.0-10.5) K/mm3 RBC 1.84 L (4.2-5.4) M/mm3 Hgb 8.1 L (12.5-16.0) gm/dL Hct 22.7 L* (37.0-47.0) % MCV 123.4 H (78-100) fl MCH 44.0 H (27-31) pg RDW 14.4 H (11.5-14.0) % Plt Count 103 L (150-450) K/mm3 Band Neuts % (Manual) 3 H (0-2.0) % Lymphocytes % (Manual) 12 L (20-51) % Monocytes % (Manual) 12 H (0-9) % Neutrophils # (Manual) 8.6 H (1.3-6.0) K/mm3 Lymphocytes # (Manual) 1.4 L (1.5-3.5) k/mm3 Monocytes # (Manual) 1.4 H (0.0-1.0) k/mm3 Platelet Estimate Decreased L (NORMAL) PT 15.6 H (9.1-10.7) Seconds INR (Anticoag Therapy) 1.60 H (0.92-1.08) INR Sodium 123 L (132-142) mmol/L Plasma Sodium 123 L (130-142) mmol/L Potassium 4.8 H (3.4-4.6) mmol/L Chloride 86 L (97-106) mmol/L BUN 46 H (3-23) mg/dL Creatinine 2.97 H D (0.4-1.4) mg/dL Est GFR (Non-Af Amer) 18 L D (60-130) mL/min Total Bilirubin 10.8 H (0.0-1.1) mg/dL AST 86 H (0-48) U/L Albumin 1.7 L (3.4-5.0) gm/dl - Exam Constitutional: Present: Alert, Cooperative, Looks Older than stated age - appears ill Respiratory: Present: no respiratory distress Cardiovascular/Chest: Present: regular rate, rhythm, systolic murmur Abdomen: Present: firm, distended - increased from yesterday Extremity: Absent: lower extremity edema Appearance: Present: appropriate insight Eye contact: Present: cooperative, good eye contact Assessment/Plan - Problems/Diagnosis (1) Liver failure Problem: Chronic Qualifiers: Liver failure chronicity: chronic Hepatic coma status: without hepatic coma Qualified Code(s): K72.10 - Chronic hepatic failure without coma Narrative: Patient has decided to pursue hospice benefits. Her renal function is quickly worsening, and her MAP is very low. Fluid resuscitation has not improved her BP, but worsened her abdominal distention. Will discuss palliative paracentesis with radiology. Will add back the morphine, and also add benzos prn. With her very low BP, acutely worsening renal function, worsening anemia, and liver failure, I anticipate her lifespan is probably days. She does not have a home to go to, so case management is thankfully working on [facility] placement. (2) Ascites due to alcoholic cirrhosis Problem: Chronic (3) Acute kidney injury Problem: Acute (4) S/P abdominal paracentesis Problem: Chronic (5) Thrombocytopenia Problem: Chronic (6) Hyponatremia Problem: Acute
[2019-10-13] MEDS: NICOTINE 21 MG PATC TD SCH (21:43)
[2019-10-14] MEDS: BUDESONIDE 0.5 MG/2 ML VIAL.NEB IH SCH (06:36)
--- NOTE | 2019-10-14 07:56 | PN ---
Subjective - Date and Time Seen Date: 10/14/19 Time: 07:50 Subjective Narrative: Her nurse reports her breathing was more shallow and slowed overnight. On my exam, she reports pain control with morphine. No new concerns. Objective - Review of Systems Generalized/Overall Review: Reports: Weakness Respiratory: Reports: Shortness of Breath. Denies: Cough Cardiac: Denies: Chest Pain, Edema Abdominal: Reports: Abdominal Pain Genitourinary Symptoms: Reports: No Symptoms Reported - Vitals Vitals: Last Vital Signs Temp 37.1 C 10/13/19 10:06 Pulse 80 10/13/19 10:06 Resp 14 10/13/19 10:06 BP 86/32 L 10/13/19 10:06 Pulse Ox 92 L 10/13/19 10:06 - Abnormal Lab Findings Abnormal Lab Findings: Abnormal Lab Results 10/13/19 Range/Units 07:00 Band Neuts % (Manual) 3 H (0-2.0) % Lymphocytes % (Manual) 12 L (20-51) % Monocytes % (Manual) 12 H (0-9) % Neutrophils # (Manual) 8.6 H (1.3-6.0) K/mm3 Lymphocytes # (Manual) 1.4 L (1.5-3.5) k/mm3 Monocytes # (Manual) 1.4 H (0.0-1.0) k/mm3 Platelet Estimate Decreased L (NORMAL) - Exam Constitutional: Present: Alert, Looks Older than stated age Respiratory: Present: no respiratory distress Cardiovascular/Chest: Present: regular rate, rhythm, systolic murmur Abdomen: Present: distended Skin Exam: Present: jaundice Eye contact: Present: good eye contact Assessment/Plan - Problems/Diagnosis (1) Liver failure Problem: Chronic Qualifiers: Liver failure chronicity: chronic Hepatic coma status: without hepatic coma Qualified Code(s): K72.10 - Chronic hepatic failure without coma Narrative: Patient agreed to pursue hospice benefits yesterday. Her renal function acutely worsened. Palliative paracentesis was attempted yesterday, but unable to remove fluid. The procedure was painful for her, and will not repeat. Blood pressure has been very low, without improvement with small fluid boluses or the administration of midodrine yesterday. Medications have been discontinued that are not directly for her comfort. Anticipate her renal function will worsen to the point she will fall asleep and not regain consciousness, perhaps within days. Case management is thankfully working on residential placement for discharge, but she may not survive long enough for arrangements to be made. (2) Ascites due to alcoholic cirrhosis Problem: Chronic (3) Acute kidney injury Problem: Acute (4) S/P abdominal paracentesis Problem: Chronic (5) Thrombocytopenia Problem: Chronic (6) Hyponatremia Problem: Acute
[2019-10-14] MEDS: FUROSEMIDE 80 MG TABLET PO SCH (11:21)
[2019-10-14] MEDS: NYSTATIN ORAL.SUSP PO SCH (11:21)
[2019-10-14] MEDS: SPIRONOLACTONE PO SCH ×2 (11:21)
[2019-10-14] MEDS: MORPHINE SULFATE 10 MG/0.5 ML SYRINGE PO PRN ×2 (11:22→20:30)
[2019-10-15] MEDS: MORPHINE SULFATE 10 MG/0.5 ML SYRINGE PO PRN ×5 (06:49→21:02)
--- NOTE | 2019-10-15 07:58 | PN ---
Subjective - Date and Time Seen Date: 10/15/19 Time: 07:55 Subjective Narrative: Her nurse reports some audible upper airway noises. She is having periods of apnea. Objective - Review of Systems Generalized/Overall Review: Reports: No Symptoms Reported - Did not waken patient to obtain ROS, to avoid agitated since she is comfort measures only - Vitals Vitals: Last Vital Signs Temp 37.1 C 10/13/19 10:06 Pulse 80 10/13/19 10:06 Resp 14 10/13/19 10:06 BP 86/32 L 10/13/19 10:06 Pulse Ox 92 L 10/13/19 10:06 Assessment/Plan - Problems/Diagnosis (1) Liver failure Problem: Chronic Qualifiers: Liver failure chronicity: chronic Hepatic coma status: without hepatic coma Qualified Code(s): K72.10 - Chronic hepatic failure without coma Narrative: Patient and her family have decided to pursue hospice benefits. Her financial situation is limiting placement options, and she has no safe home to go to. With her renal failure in addition to her liver failure and low blood pressure, I anticipate her life span is limited to days. Will continue liquid morphine and ativan for pain and agitation. Can DC her IV, as it has not been used. Will add scopolamine patch for secretions, as she is developing audible upper airway noises. (2) Ascites due to alcoholic cirrhosis Problem: Chronic (3) Acute kidney injury Problem: Acute (4) S/P abdominal paracentesis Problem: Chronic (5) Thrombocytopenia Problem: Chronic (6) Hyponatremia Problem: Acute
[2019-10-15] MEDS ORDERED: LORazepam 1 MG TABLET PO SCH (09:00)
[2019-10-15] MEDS ORDERED: SCOPOLAMINE HYDROBROMIDE 1.5 MG PATC TD SCH (09:00)
[2019-10-15] MEDS ORDERED: LORazepam 1 MG TABLET PO PRN (09:01)
[2019-10-15] MEDS ORDERED: LORAZEPAM 2 MG/ML ORAL.CONC PO PRN (09:28)
[2019-10-16] MEDS ORDERED: ATROPINE SULFATE 50 DROP BTL ONE (00:54)
[2019-10-16] MEDS: ATROPINE SULFATE 150 DROP BTL SL PRN ×3 (01:04→10:25)
[2019-10-16] MEDS: MORPHINE SULFATE 10 MG/0.5 ML SYRINGE PO PRN ×2 (04:16→07:02)
[2019-10-16] MEDS ORDERED: MORPHINE SULFATE 10 MG/0.5 ML SYRINGE PO PRN (10:18)
[2019-10-16] MEDS ORDERED: LORAZEPAM 2 MG/ML ORAL.CONC PO PRN (10:18)
[2019-10-16] MEDS ORDERED: MORPHINE SULFATE 10 MG/0.5 ML SYRINGE PO SCH (10:30)
[2019-10-16] MEDS: MORPHINE SULFATE 10 MG/0.5 ML SYRINGE PO SCH ×2 (11:23→12:44)
[2019-10-16] MEDS ORDERED: ATROPINE SULFATE 150 DROP BTL SL SCH (12:30)
[2019-10-16] MEDS ORDERED: LORAZEPAM 2 MG/ML ORAL.CONC PO SCH (12:30)
--- NOTE | 2019-10-16 23:56 | DS ---
Discharge Summary - Provider Primary Care Provider: Reggie Davis - Date and Time Date of : 10/16/19 Time of : 13:18 - Diagnosis/Cause of (1) Hyponatremia Problems: Acute (2) Ascites due to alcoholic cirrhosis Problems: Acute (3) SBP (spontaneous bacterial peritonitis) Problems: Ruled-out (4) Hypokalemia Problems: Resolved (5) Hyperammonemia Problems: Resolved (6) Hepatic encephalopathy Problems: Resolved - Summary Details (narrative): Lesly was admitted for hyponatremia and ascities secondary to alcoholic cirrhosis. She was in profound alcoholic liver failure and was treated with diuretics and fluid restrictions to treat her hypervolumic hyponatremia. She continued to have significant ascites and developed significant pain and leukocytosis. A paracentesis was performed to evaluate for spontaneous bacterial peritonitis. Ascites culture was ultimately negative for peritonitis. She continued to have worsening liver failure with elevated INR, thrombocytopenia, and elevated ammonia and bilirubin. 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 Hospice was discussed with patient and family and agreed upon. She was placed into hospice and made comfort cares. She continued to decline and on 10/16/19 at 1318 with her family from [facility] present. Procedures Performed: see notes below Procedure Performed: 10/10/19 Paracentesis with US guidance. - Additional Data Confirmation of as documented by pronouncing clinician: no pulse, no respirations, no heart sounds, pupils fixed and dilated Family: at bedside Practitioner(Attending/PCP) notified: Yes Was code activated: No Autopsy requested: No Police Chief notified: No Organ Bank notified: No Hospice patient: Yes
== END 2019-10-16 13:18 | disposition expired | DRG 432 ==
LOC: MS 18:03 → ER 18:03 → MS 20:15 → OBSVTOIN 10-06 10:30
PROVIDERS: ADMIT Family Medicine; ATTEND Family Medicine
DX: Z68.29 Body mass index [BMI] 29.0-29.9, adult; E87.6 Hypokalemia; E87.1 Hypo-osmolality and hyponatremia; Y90.6 Blood alcohol level of 120-199 mg/100 ml; F10.220 Alcohol dependence with intoxication, uncomplicated; E88.09 Other disorders of plasma-protein metabolism, not elsewhere classified; J44.9 Chronic obstructive pulmonary disease, unspecified; K70.31 Alcoholic cirrhosis of liver with ascites; F10.239 Alcohol dependence with withdrawal, unspecified; E87.79 Other fluid overload; K70.40 Alcoholic hepatic failure without coma; E46 Unspecified protein-calorie malnutrition; K65.2 Spontaneous bacterial peritonitis; G31.2 Degeneration of nervous system due to alcohol; F17.210 Nicotine dependence, cigarettes, uncomplicated; N17.9 Acute kidney failure, unspecified
CPT/HCPCS: 36415; 49083; 71010; 71020; 71045; 71046; 74000; 74018; 80053; 80320; 81001; 82042; 82140; 82150; 83519; 83605; 83690; 83880; 84155; 84157; 84484; 85007; 85025; 85610; 85730; 87070; 87086; 87205; 88108; 88305; 89051; 93005; 94640; 96374; 96375; 96376; 99285; G0378; G0481; J2405